=== PATIENT | male | born 1945 | race Caucasian/White ===

== ENCOUNTER → 2017-04-12 | Outpatient (CLI) | payer MEDICARE | END | disposition home or self-care (01) | LOC: PETSC 10:14 | DX: C82.80 Other types of follicular lymphoma, unspecified site (principal); E04.2 Nontoxic multinodular goiter; K76.89 Other specified diseases of liver; R59.1 Generalized enlarged lymph nodes | CPT/HCPCS: 78815; A9552 ==

== ENCOUNTER 2017-12-03 10:33 | Emergency (ER) | payer MEDICARE ==
[~2017-12-03] VITALS: Ht 182.9 cm; Wt 81.6 kg
[~2017-12-03 10:33] MED LIST: HYDR-971 PO; MULT1TAB52 PO
[2017-12-03 10:49] VITALS: BP 189/87
[2017-12-03] MEDS ORDERED: IV NORMAL SALINE 1000ML BAG 1,000 ML IV ONE (11:15)
--- NOTE | 2017-12-03 11:19 | PHYS DOC ---
Past Medical History Past Medical History: Cancer, Hypertension Additional Past Medical Histor: LOW GRADE B CELL LYMPHOMA Past Surgical History: Knee Replacement, Tonsillectomy Additional Past Surgical Histo: L foot sx, L knee replacement, R elbow sx, R ACL repair Alcohol Use: None Drug Use: None Adult General Chief Complaint Chief Complaint: ABDOMINAL PAIN HPI HPI Patient is a 72 year old female who presents with abdominal pain. Patient states he began to have significant diffuse abdominal pain after eating breakfast this morning. He had multiple episodes of dry heaves but did not actually have emesis. The pain is rated to be severe and constant. He does not have prior history of similar symptoms. His surgical history is positive only for a plastic surgery to remove excess skin after significant weight loss. No fever or chills. He was at baseline health prior to eating this morning. He does also complain of some dizziness, primarily when he rotates his head to the side. This symptom also started earlier today. No chest pain or shortness of breath. No recent fever. Review of Systems Review of Systems Constitutional: Denies fever Eyes: Denies change in visual acuity, redness, or eye pain HENT: Denies nasal congestion or sore throat Respiratory: Denies cough or shortness of breath Cardiovascular: No additional information not addressed in HPI GI: as documented above : Denies dysuria or hematuria Musculoskeletal: Denies back pain Integument: Denies rash or Neurologic: Denies headache Endocrine: Denies polyuria All other systems were reviewed and found to be within normal limits, except as documented in this note. Current Medications Current Medications Current Medications Medications (Trade) Dose Ordered Sig/Citlalli Start Time Stop Time Status Last Admin Dose Admin Diphenhydramine HCl (Benadryl) 12.5 mg 1X ONCE 12/03/17 13:30 12/03/17 13:31 DC 12/03/17 14:13 12.5 MG Info (CONTRAST GIVEN -- Rx MONITORING) 1 each PRN DAILY PRN 12/03/17 12:00 12/05/17 11:59 Iohexol (Omnipaque 300 Mg/ml) 75 ml 1X ONCE 12/03/17 12:00 12/03/17 12:01 DC 12/03/17 12:10 75 ML Ondansetron HCl (Zofran) 4 mg 1X ONCE 12/03/17 12:00 12/03/17 12:01 DC 12/03/17 12:00 4 MG Prochlorperazine Edisylate (Compazine) 10 mg 1X ONCE 12/03/17 13:30 12/03/17 13:31 DC 12/03/17 14:13 10 MG Sodium Chloride 1,000 ml @ 1,000 mls/hr 1X ONCE 12/03/17 11:15 12/03/17 12:14 DC 12/03/17 11:15 1,000 MLS/HR Allergies Allergies Allergies Coded Allergies Type Severity Reaction Last Updated Verified No Known Drug Allergies 01/26/15 No Physical Exam Physical Exam Constitutional: Well developed, well nourished, no acute distress, non-toxic appearance. [] HENT: Normocephalic, atraumatic, bilateral external ears normal, oropharynx moist, no oral exudates, nose normal. [] Eyes: PERRLA, EOMI, conjunctiva normal, no discharge. [] Neck: Normal range of motion, no tenderness, supple, no stridor. [] Cardiovascular:Heart rate regular rhythm, no murmur [] Lungs & Thorax: Bilateral breath sounds clear to auscultation [] Abdomen: Bowel sounds normal, soft, no tenderness, no masses, no pulsatile masses. [] Skin: Warm, dry, no erythema, no rash. [] Back: No tenderness, no CVA tenderness. [] Extremities: No tenderness, no cyanosis, no clubbing, ROM intact, no edema. [] Neurologic: Alert and oriented X 3, normal motor function, normal sensory function, no focal deficits noted. [] Psychologic: Affect normal, judgement normal, mood normal. [] Current Patient Data Vital Signs Vital Signs Date Time Temp Pulse Resp B/P (MAP) Pulse Ox O2 Delivery O2 Flow Rate FiO2 12/03/17 10:49 97.5 62 16 189/87 (121) 100 Room Air 97.5 Lab Values Laboratory Tests Test 12/03/17 10:40 White Blood Count 7.5 x10^3/uL (4.0-11.0) Red Blood Count 4.85 x10^6/uL (4.30-5.70) Hemoglobin 15.2 g/dL (13.0-17.5) Hematocrit 44.2 % (39.0-53.0) Mean Corpuscular Volume 91 fL (79-100) Mean Corpuscular Hemoglobin 31 pg (25-35) Mean Corpuscular Hemoglobin Concent 35 g/dL (31-37) Red Cell Distribution Width 13.6 % (11.5-14.5) Platelet Count 299 x10^3/uL (140-400) Neutrophils (%) (Auto) 69 % (31-73) Lymphocytes (%) (Auto) 20 % (24-48) L Monocytes (%) (Auto) 7 % (0-9) Eosinophils (%) (Auto) 3 % (0-3) Basophils (%) (Auto) 1 % (0-3) Neutrophils # (Auto) 5.2 x10^3uL (1.8-7.7) Lymphocytes # (Auto) 1.5 x10^3/uL (1.0-4.8) Monocytes # (Auto) 0.5 x10^3/uL (0.0-1.1) Eosinophils # (Auto) 0.2 x10^3/uL (0.0-0.7) Basophils # (Auto) 0.1 x10^3/uL (0.0-0.2) Sodium Level 139 mmol/L (136-145) Potassium Level 4.3 mmol/L (3.5-5.1) Chloride Level 103 mmol/L (98-107) Carbon Dioxide Level 29 mmol/L (21-32) Anion Gap 7 (6-14) Blood Urea Nitrogen 20 mg/dL (8-26) Creatinine 1.1 mg/dL (0.7-1.3) Estimated GFR (Cockcroft-Gault) 65.8 Glucose Level 104 mg/dL (70-99) H Calcium Level 9.3 mg/dL (8.5-10.1) Total Bilirubin 1.5 mg/dL (0.2-1.0) H Direct Bilirubin 0.2 mg/dL (0.0-0.2) Aspartate Amino Transferase (AST) 17 U/L (15-37) Alanine Aminotransferase (ALT) 20 U/L (16-63) Alkaline Phosphatase 97 U/L (46-116) Troponin I Quantitative < 0.017 ng/mL (0.000-0.055) Total Protein 6.9 g/dL (6.4-8.2) Albumin 3.7 g/dL (3.4-5.0) Lipase 131 U/L (73-393) Laboratory Tests 12/03/17 10:40 Laboratory Tests 12/03/17 10:40 EKG EKG No STEMI Interpretation Time: 10:45 Radiology/Procedures Radiology/Procedures FINDINGS: Lower thorax: Mild dependent atelectasis. Heart size mildly enlarged. Coronary artery calcifications. Liver: Low-density lesions are identified throughout the liver. Largest is in the right lobe and measures 6.2 cm and measures 11 Hounsfield units compatible with a cyst. Second largest lesion measures 6 Hounsfield units also compatible with a cyst. Spleen: Unremarkable Pancreas: Unremarkable Adrenals:No evidence of mass. Kidneys: Small hypodense lesion at the midpole of the left kidney laterally, measures 11 mm but greater than fluid density. This was not seen on the prior images of April 12, 2017. Gallbladder: Multiple gallstones are again identified. Lymph nodes: Multiple para-aortic lymph nodes are again identified and many of these are stable since previous exam. A large node just below the aortic bifurcation on the left now measures 2.4 cm in short axis, as compared with 1.9 cm on prior study. Multiple enlarged lymph nodes are again identified along the iliac chains. A large node medial to the left acetabulum now measures 2.2 cm short axis as compared with 1.8 cm on prior study. Right iliac nodes appears similar. Enlarged inguinal lymph nodes are again identified. These appear similar. Enlarged mesenteric lymph nodes appears similar in size. Vessels: * Aorta: Calcified, tortuous, no aneurysm. Dense calcifications at the right renal artery origin, and to a lesser extent other major origins. * Mesenteric: Patent * Portal venous: Patent GI tract: No evidence of acute colitis. No evidence of bowel obstruction. Appendix is not clearly visualized. Reproductive organs: Mild prostate gland enlargement Urinary bladder: Unremarkable. Peritoneum: No evidence of pneumoperitoneum. No free fluid. Abdominal wall:Unremarkable Spine: Degenerative spondylosis with loss of disk height and spurring. Bones: No destructive process identified. IMPRESSION: 1. Development of an 11 mm lesion in the left kidney, not compatible with a simple cyst. Considerations include a complex or hemorrhagic cyst, or solid mass. Further evaluation could be obtained with outpatient ultrasound. 2. Numerous hepatic hypodense lesions, most compatible with cysts. 3. Moderately enlarged retroperitoneal, mesenteric, iliac and inguinal lymph nodes. A lymph node adjacent to the left common iliac artery origin has increased in size, 2.4 cm as compared with 1.9 cm previously. A left iliac lymph node has also increased in size, now measuring 2.2 cm as compared with 1.8 cm. These are likely of neoplastic or metastatic etiology. 4. Cholelithiasis. CT Head: Findings: No acute extra-axial or parenchymal hemorrhage is identified. There is no significant intra-axial mass effect, midline shift, or extra-axial fluid collection. The coyle-white differentiation of the major vascular territories is preserved. The ventricles, sulci, and cisterns are within normal limits in size and configuration. Mastoid air cells are aerated. There is air-fluid level of the left maxillary sinus with adjacent mucosal thickening. There is posterior right maxillary sinus mucous retention cyst about 1.6 cm. No acute calvarial abnormality is identified. Impression: 1. No acute intracranial abnormality is identified by CT. 2. There is air-fluid level in the left maxillary sinus which could be due to acute sinusitis. There is a right maxillary sinus mucous retention cyst. Course & Med Decision Making Course & Med Decision Making Pertinent Labs and Imaging studies reviewed. (See chart for details) 11:00: Patient is seen and examined. His exam is positive for some diffuse abdominal tenderness. His neurologic exam is normal. His EKG is also normal. Will do standard abdominal pain workup. 13:20: Discussed this patient's CT findings. Patient now states he has a known history of B-cell lymphoma with known metastases in various places. He has never had any [employer] involvement. He continues to complain of some vertigo symptoms. On physical exam, he has horizontal nystagmus with lateral gaze bilaterally, symptoms worse on the right. The examination does precipitate his symptoms. His abdominal exam is soft and nontender. His CT abdomen pelvis is nonacute. His symptoms now seem more consistent with vertigo although he has never undergone neuro imaging. Plan is to give some Compazine. We'll do CT scan of the head. If this is negative for mass, patient will be discharged home with vertigo. I explained all of this to the patient and he plans to follow-up very closely 14:30: Patient currently feeling improved. He is ambulated without difficulty. Plan is for discharge home. There was no acute dystonic findings on his CT scan. He was noted to have air-fluid levels in the sinuses which could represent sinusitis. The patient is mildly tender in this area on exam. His symptoms seem most consistent with vertigo although in the setting of sinusitis on CT scan, plan is to treat him empirically. He is discharged home on Levaquin and meclizine. He is encouraged to follow-up with his primary care doctor later this week or early next week and also for sooner surveillance of his metastatic disease. Patient is agreeable to the plan of care. Dragon Disclaimer Dragon Disclaimer This electronic medical record was generated, in whole or in part, using a voice recognition dictation system. Departure Departure Referrals: JONATHAN PEÑALOZA MD (PCP) JOSE ALFREDO RAMIREZ DO Dec 03, 2017 11:19
[2017-12-03 11:20] LABS: BASO # 0.1 x10^3/uL (0.0-0.2); BASO % 1 % (0-3); EOS # 0.2 x10^3/uL (0.0-0.7); EOS % 3 % (0-3); HEMATOCRIT 44.2 % (39.0-53.0); HEMOGLOBIN 15.2 g/dL (13.0-17.5); LYMPH # 1.5 x10^3/uL (1.0-4.8); LYMPH % 20 % (24-48); MEAN CORPUSCULAR HEMOGLOBIN 31 pg (25-35); MEAN CORPUSCULAR HGB CONC 35 g/dL (31-37); MEAN CORPUSCULAR VOLUME 91 fL (79-100); MONO # 0.5 x10^3/uL (0.0-1.1); MONO % 7 % (0-9); NEUT # 5.2 x10^3uL (1.8-7.7); NEUT % 69 % (31-73); PLATELET COUNT 299 x10^3/uL (140-400); RED BLOOD COUNT 4.85 x10^6/uL (4.30-5.70); RED CELL DISTRIBUTION WIDTH 13.6 % (11.5-14.5); WHITE BLOOD COUNT 7.5 x10^3/uL (4.0-11.0)
[2017-12-03 11:30] LABS: CALCIUM 9.3 mg/dL (8.5-10.1); CREATININE 1.1 mg/dL (0.7-1.3); GFR 65.8; POTASSIUM 4.3 mmol/L (3.5-5.1)
[2017-12-03 11:35] LABS: ALBUMIN 3.7 g/dL (3.4-5.0); DIRECT BILIRUBIN 0.2 mg/dL (0.0-0.2); TOTAL BILIRUBIN 1.5 mg/dL (0.2-1.0); TOTAL PROTEIN 6.9 g/dL (6.4-8.2)
--- NOTE | 2017-12-03 11:44 | EKG ---
[facility] [address] [place] [address] Test Date: 2017-12-03 Test Time: 10:44:34 Pat Name: JG PETERSON Department: Room: Gender: M Contact Center Team Lead: DANA : 1945 Requested By: JOSE ALFREDO RAMIREZ Order Number: [id number] Reading MD: Reddy Bray MD Measurements Intervals [place] Rate: 61 P: 38 NC: 302 QRS: -4 QRSD: 88 T: 35 QT: 406 QTc: 410 Interpretive Statements SINUS RHYTHM PROLONGED NC INTERVAL Electronically Signed On 12-03-2017 11:44:27 CDT by Reddy Bray MD
[2017-12-03] MEDS ORDERED: CONTRAST GIVEN. MC PRN (12:00)
[2017-12-03] MEDS ORDERED: ONDANSETRON PF 4 MG/2 ML VIAL. IV ONE (12:00)
[2017-12-03] MEDS ORDERED: IOHEXOL 300 MG/ML 100ML VIAL. IV ONE (12:00)
--- NOTE | 2017-12-03 12:55 | RAD ---
CT ABD PELV W/ IV CONTRST ONLY Indication: DIFFUSE ABD PAIN X1DAY WITH NAUSEA AND VOMIITNG
OMNI 300 75ML, NO PRIORS Exposure: One or more of the following individualized dose reduction techniques were utilized for this examination: 1. Automated exposure control 2. Adjustment of the mA and/or kV according to patient size 3. Use of iterative reconstruction technique. Comparison: April 12, 2017 Contrast: Intravenous contrast was given. No oral contrast per request. FINDINGS: Lower thorax: Mild dependent atelectasis. Heart size mildly enlarged. Coronary artery calcifications. Liver: Low-density lesions are identified throughout the liver. Largest is in the right lobe and measures 6.2 cm and measures 11 Hounsfield units compatible with a cyst. Second largest lesion measures 6 Hounsfield units also compatible with a cyst. Spleen: Unremarkable Pancreas: Unremarkable Adrenals:No evidence of mass. Kidneys: Small hypodense lesion at the midpole of the left kidney laterally, measures 11 mm but greater than fluid density. This was not seen on the prior images of April 12, 2017. Gallbladder: Multiple gallstones are again identified. Lymph nodes: Multiple para-aortic lymph nodes are again identified and many of these are stable since previous exam. A large node just below the aortic bifurcation on the left now measures 2.4 cm in short axis, as compared with 1.9 cm on prior study. Multiple enlarged lymph nodes are again identified along the iliac chains. A large node medial to the left acetabulum now measures 2.2 cm short axis as compared with 1.8 cm on prior study. Right iliac nodes appears similar. Enlarged inguinal lymph nodes are again identified. These appear similar. Enlarged mesenteric lymph nodes appears similar in size. Vessels: * Aorta: Calcified, tortuous, no aneurysm. Dense calcifications at the right renal artery origin, and to a lesser extent other major origins. * Mesenteric: Patent * Portal venous: Patent GI tract: No evidence of acute colitis. No evidence of bowel obstruction. Appendix is not clearly visualized. Reproductive organs: Mild prostate gland enlargement Urinary bladder: Unremarkable. Peritoneum: No evidence of pneumoperitoneum. No free fluid. Abdominal wall:Unremarkable Spine: Degenerative spondylosis with loss of disk height and spurring. Bones: No destructive process identified. IMPRESSION: 1. Development of an 11 mm lesion in the left kidney, not compatible with a simple cyst. Considerations include a complex or hemorrhagic cyst, or solid mass. Further evaluation could be obtained with outpatient ultrasound. 2. Numerous hepatic hypodense lesions, most compatible with cysts. 3. Moderately enlarged retroperitoneal, mesenteric, iliac and inguinal lymph nodes. A lymph node adjacent to the left common iliac artery origin has increased in size, 2.4 cm as compared with 1.9 cm previously. A left iliac lymph node has also increased in size, now measuring 2.2 cm as compared with 1.8 cm. These are likely of neoplastic or metastatic etiology. 4. Cholelithiasis. Electronically signed by: Collins Davis MD (12/03/2017 12:52 PM) [id number]
[2017-12-03] MEDS ORDERED: diphenhydrAMINE 50 MG/ML VIAL IVP ONE (13:30)
[2017-12-03] MEDS ORDERED: PROCHLORPERAZINE 10 MG/2 ML VIAL. IV ONE (13:30)
--- NOTE | 2017-12-03 14:20 | RAD ---
CT HEAD WO CONTRAST History: Vertigo, B-cell lymphoma, emesis Comparison: None. Technique: Noncontrast CT imaging was performed of the head. Exposure: One or more of the following individualized dose reduction techniques were utilized for this examination: 1. Automated exposure control 2. Adjustment of the mA and/or kV according to patient size 3. Use of iterative reconstruction technique. Findings: No acute extra-axial or parenchymal hemorrhage is identified. There is no significant intra-axial mass effect, midline shift, or extra-axial fluid collection. The coyle-white differentiation of the major vascular territories is preserved. The ventricles, sulci, and cisterns are within normal limits in size and configuration. Mastoid air cells are aerated. There is air-fluid level of the left maxillary sinus with adjacent mucosal thickening. There is posterior right maxillary sinus mucous retention cyst about 1.6 cm. No acute calvarial abnormality is identified. Impression: 1. No acute intracranial abnormality is identified by CT. 2. There is air-fluid level in the left maxillary sinus which could be due to acute sinusitis. There is a right maxillary sinus mucous retention cyst. Electronically signed by: Richard Altman MD (12/03/2017 2:16 PM) [facility]
[2017-12-03] MEDS ORDERED: LEVO500T59 PO (14:28)
[2017-12-03] MEDS ORDERED: MECL25TA3 PO (14:28)
== END 2017-12-03 15:27 | disposition home or self-care (01) ==
LOC: ER 10:33
DX: R10.84 Generalized abdominal pain (principal); R42 Dizziness and giddiness; I10 Essential (primary) hypertension
CPT/HCPCS: 36415; 70450; 74177; 80048; 80076; 83690; 84484; 85025; 93005; 96361; 96374; 96375; 99285; J0780; J1200; J2405; J7030; Q9967

== ENCOUNTER 2018-01-01 15:44 | Inpatient (IN) | payer MEDICARE ==
[~2018-01-01] VITALS: Ht 193 cm; Wt 106.3 kg
[~2018-01-01 15:44] MED LIST changes: +LEVO500T59 PO; +MECL25TA3 PO
--- NOTE | 2018-01-01 16:44 | PHYS DOC ---
Past Medical History Past Medical History: Cancer, Hypertension Additional Past Medical Histor: LOW GRADE B CELL LYMPHOMA Past Surgical History: Knee Replacement, Tonsillectomy Additional Past Surgical Histo: L foot sx, L knee replacement, R elbow sx, R ACL repair Alcohol Use: None Drug Use: None Adult General Chief Complaint Chief Complaint: ABSCESS HPI HPI Patient is a 72 year old Male who presents with left foot redness and swelling 1 week. Patient states he went to Dr. Carla luu foot doctor and states the doctor today made a small incision on the bottom of his foot where there is a wound that the patient did not know about and purulent fluid came out. The doctor sent him here for IV antibiotics and to be evaluated. Review of Systems Review of Systems Constitutional: Denies fever or chills [] Eyes: Denies change in visual acuity, redness, or eye pain [] HENT: Denies nasal congestion or sore throat [] Respiratory: Denies cough or shortness of breath [] Cardiovascular: No additional information not addressed in HPI [] GI: Denies abdominal pain, nausea, vomiting, bloody stools or diarrhea [] : Denies dysuria or hematuria [] Musculoskeletal: Denies back pain or joint pain [] Integument: Denies rash or skin lesions [] Neurologic: Denies headache, focal weakness or sensory changes [] Endocrine: Denies polyuria or polydipsia [] All other systems were reviewed and found to be within normal limits, except as documented in this note. Current Medications Current Medications Current Medications Medications (Trade) Dose Ordered Sig/Citlalli Start Time Stop Time Status Last Admin Dose Admin Ondansetron HCl (Zofran) 4 mg PRN Q8HRS PRN 01/01/18 17:15 01/02/18 17:14 UNV Vancomycin HCl (Vanco Per Pharmacy) 1 each PRN DAILY PRN 01/01/18 16:30 UNV Vancomycin HCl 2 gm/Sodium Chloride 500 ml @ 250 mls/hr ONCE ONCE 01/01/18 17:00 01/01/18 18:59 Allergies Allergies Allergies Coded Allergies Type Severity Reaction Last Updated Verified No Known Drug Allergies 01/26/15 No Physical Exam Physical Exam Constitutional: Well developed, well nourished, no acute distress, non-toxic appearance. [] HENT: Normocephalic, atraumatic, bilateral external ears normal, oropharynx moist, no oral exudates, nose normal. [] Eyes: PERRLA, EOMI, conjunctiva normal, no discharge. [] Neck: Normal range of motion, no tenderness, supple, no stridor. [] Cardiovascular:Heart rate regular rhythm, no murmur [] Lungs & Thorax: Bilateral breath sounds clear to auscultation [] Abdomen: Bowel sounds normal, soft, no tenderness, no masses, no pulsatile masses. [] Skin: Warm, dry, no erythema, no rash. [] Back: No tenderness, no CVA tenderness. [] Extremities: No tenderness, no cyanosis, no clubbing, ROM intact, no edema. [] Neurologic: Alert and oriented X 3, normal motor function, normal sensory function, no focal deficits noted. [] Psychologic: Affect normal, judgement normal, mood normal. [] Current Patient Data Vital Signs Vital Signs Date Time Temp Pulse Resp B/P (MAP) Pulse Ox O2 Delivery O2 Flow Rate FiO2 01/01/18 16:06 99.9 77 20 143/81 (101) 96 Room Air 99.9 Lab Values Laboratory Tests Test 01/01/18 16:30 White Blood Count 9.9 x10^3/uL (4.0-11.0) Red Blood Count 4.40 x10^6/uL (4.30-5.70) Hemoglobin 13.8 g/dL (13.0-17.5) Hematocrit 40.3 % (39.0-53.0) Mean Corpuscular Volume 92 fL (79-100) Mean Corpuscular Hemoglobin 31 pg (25-35) Mean Corpuscular Hemoglobin Concent 34 g/dL (31-37) Red Cell Distribution Width 13.4 % (11.5-14.5) Platelet Count 279 x10^3/uL (140-400) Neutrophils (%) (Auto) 74 % (31-73) H Lymphocytes (%) (Auto) 14 % (24-48) L Monocytes (%) (Auto) 11 % (0-9) H Eosinophils (%) (Auto) 1 % (0-3) Basophils (%) (Auto) 0 % (0-3) Neutrophils # (Auto) 7.3 x10^3uL (1.8-7.7) Lymphocytes # (Auto) 1.4 x10^3/uL (1.0-4.8) Monocytes # (Auto) 1.1 x10^3/uL (0.0-1.1) Eosinophils # (Auto) 0.1 x10^3/uL (0.0-0.7) Basophils # (Auto) 0.0 x10^3/uL (0.0-0.2) Sodium Level 141 mmol/L (136-145) Potassium Level 3.6 mmol/L (3.5-5.1) Chloride Level 103 mmol/L (98-107) Carbon Dioxide Level 29 mmol/L (21-32) Anion Gap 9 (6-14) Blood Urea Nitrogen 23 mg/dL (8-26) Creatinine 1.4 mg/dL (0.7-1.3) H Estimated GFR (Cockcroft-Gault) 49.8 Glucose Level 100 mg/dL (70-99) H Calcium Level 8.5 mg/dL (8.5-10.1) Laboratory Tests 01/01/18 16:30 Laboratory Tests 01/01/18 16:30 EKG EKG [] Radiology/Procedures Radiology/Procedures Left foot wound Impressions: [facility] [address] [place], [place] [id number] IMAGING REPORT Signed PATIENT: EULOGIO PETERSON ACCOUNT: [id number] : 1945 LOCATION: ER AGE: 72 SEX: M EXAM STATUS: REG ER ORD. PHYSICIAN: PIERO BARKSDALE APRN REASON: WOUND PROCEDURE: FOOT LEFT 3V Three-view left foot study Clinical indications: Toe infection with wound. FINDINGS: Old appearing surgical resection or old erosion of the fourth metatarsal phalangeal joint is seen. There is erosion of the distal tuft of the third distal phalanx. Soft tissue wound is seen here. Therefore, osteomyelitis is a possibility. There is dislocation of the third metatarsal phalangeal joint. No acute-appearing fracture is evident. Plantar and posterior spurs the calcaneus are seen. 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 Dislocation of the third metatarsal phalangeal joint. Electronically signed by: Rich Valenzuela MD (01/01/2018 4:56 PM) [facility] DICTATED and SIGNED BY: RICH VALENZUELA MD DATE: 01/01/181652 Course & Med Decision Making Course & Med Decision Making Patient is a 72 year old Male who presents with left foot redness and swelling 1 week. Patient states he went to Dr. Carla luu foot doctor and states the doctor today made a small incision on the bottom of his foot where there is a wound that the patient did not know about and purulent fluid came out. The doctor sent him here for IV antibiotics and to be evaluated. Patient afebrile temp is 99.1. His heart rate is 82. Patient is neurologically intact. Patient denies any peripheral neuropathies but states that he had no idea that there was a wound on the bottom of his foot. Patient states he walks about 5 miles a day and did not feel any pain. Patient states he has had a surgery for another of this type of wound on the top of this foot by his fifth foot digit that had to be opened up and drained. The top of patient's left foot is red, hot and has 3+ edema. Patient has less than 3 second cap refill. There is a dollar fernandez size round yellow hard area that is on the bottom of left foot in the plantar area that is now draining a small amount of serosanguineous fluid. There is a faint pedal pulse felt in the left foot due to swelling. Blood cultures are done. Patient has a history of B-cell lymphoma that is low-grade and located in his groin lymph nodes fell last 3 years. Patient's been seeing a Dr. Villanueva for his cancer follow-up. Patient is not currently being treated for cancer. Have consulted Dr. Pollard for admission and infectious disease. Left foot xray shows Osteomyelitis of the distal tuft of the third distal phalanx with associated soft tissue wound. Dislocation of the third metatarsal phalangeal joint. Patient will be started on vancomycin and zosyn. [] Dragon Disclaimer Dragon Disclaimer This electronic medical record was generated, in whole or in part, using a voice recognition dictation system. Departure Departure Impression: Primary Impression: Wound of foot Additional Impression: Cellulitis Disposition: ADMITTED INPATIENT Admitting Physician: Eulogio Woodall Condition: STABLE Referrals: JONATHAN PEÑALOZA MD (PCP) Problem Qualifiers Additional Impression: Cellulitis Site of cellulitis: other site Qualified Codes: L03.818 - Cellulitis of other sites PIERO BARKSDALE DIRECTOR OF DISTANCE LEARNING Jan 01, 2018 16:44
[2018-01-01 16:52] LABS: BASO % 0 % (0-3); EOS # 0.1 x10^3/uL (0.0-0.7); EOS % 1 % (0-3); HEMATOCRIT 40.3 % (39.0-53.0); HEMOGLOBIN 13.8 g/dL (13.0-17.5); LYMPH # 1.4 x10^3/uL (1.0-4.8); LYMPH % 14 % (24-48); MEAN CORPUSCULAR HEMOGLOBIN 31 pg (25-35); MEAN CORPUSCULAR HGB CONC 34 g/dL (31-37); MEAN CORPUSCULAR VOLUME 92 fL (79-100); MONO # 1.1 x10^3/uL (0.0-1.1); MONO % 11 % (0-9); NEUT # 7.3 x10^3uL (1.8-7.7); NEUT % 74 % (31-73); PLATELET COUNT 279 x10^3/uL (140-400); RED CELL DISTRIBUTION WIDTH 13.4 % (11.5-14.5); WHITE BLOOD COUNT 9.9 x10^3/uL (4.0-11.0)
--- NOTE | 2018-01-01 16:59 | RAD ---
Three-view left foot study Clinical indications: Toe infection with wound. FINDINGS: Old appearing surgical resection or old erosion of the fourth metatarsal phalangeal joint is seen. There is erosion of the distal tuft of the third distal phalanx. Soft tissue wound is seen here. Therefore, osteomyelitis is a possibility. There is dislocation of the third metatarsal phalangeal joint. No acute-appearing fracture is evident. Plantar and posterior spurs the calcaneus are seen. 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 Dislocation of the third metatarsal phalangeal joint. Electronically signed by: Jose L Valenzuela MD (01/01/2018 4:56 PM) [facility]
[2018-01-01 17:00] LABS: CALCIUM 8.5 mg/dL (8.5-10.1); CREATININE 1.4 mg/dL (0.7-1.3); GFR 49.8; POTASSIUM 3.6 mmol/L (3.5-5.1)
[2018-01-01] MEDS ORDERED: VANCOMYCIN 2 GM in IV NORMAL SALINE 500ML BAG 500 ML IV ONE (17:00)
[2018-01-01] MEDS ORDERED: ONDANSETRON PF 4 MG/2 ML VIAL. IV PRN (17:15)
[2018-01-01] MEDS ORDERED: PIPERACILLIN/TAZOBACTAM 3.375 GM in IV NORMAL SALINE 50ML 50 ML IV ONE (17:30)
[2018-01-01] MEDS ORDERED: PIP/TAZO PER PHARMACY MC PRN (17:30)
[2018-01-01] MEDS: VANCOMYCIN PER PHARMACY MC PRN (18:40)
[2018-01-01 19:15] VITALS: BP 133/67
[2018-01-01] MEDS: LACTOBACILLUS RHAMNOSUS GG 1 CAPSULE. PO SCH (22:04)
--- NOTE | 2018-01-01 22:45 | PDOC1 ---
History and Physical Date of Admission Date of Admission DATE: 01/01/18 TIME: 22:45 Identification/Chief Complaint Chief Complaint CC SEEN IN ER 72 year old Male who presents with left foot redness and swelling 1 week. states he went to Dr. Aguirre a [employer] made a small incision on the bottom of his left foot purulent fluid noted, sent him here for IV antibiotics and to be evaluated. Past Medical History Past Medical History Past Medical History Past Medical History Past Medical History: Cancer, Hypertension Additional Past Medical Histor: LOW GRADE B CELL LYMPHOMA Past Surgical History: Knee Replacement, Tonsillectomy Additional Past Surgical Histo: L foot sx, L knee replacement, R elbow sx, R ACL repair Alcohol Use: None Drug Use: None family hx htn Cardiovascular: Hyperlipidemia Musculoskeletal: Osteoarthritis Endocrine: Diabetes Family History Family History: High Cholestrol Family History: Parent Social History Smoke: No ALCOHOL: none Drugs: None Current Problem List Problem List Problems Medical Problems: (1) Cellulitis Status: Acute (2) Wound of foot Status: Acute Current Medications Current Medications Current Medications Vancomycin HCl (Vanco Per Pharmacy) 1 each PRN DAILY PRN MC SEE COMMENTS Last administered on 01/01/18at 18:40; Start 01/01/18 at 16:30 Vancomycin HCl 2 gm/Sodium Chloride 500 ml @ 250 mls/hr ONCE ONCE IV Last administered on 01/01/18at 18:17; Start 01/01/18 at 17:00; Stop 01/01/18 at 18:59 ; Status DC Ondansetron HCl (Zofran) 4 mg PRN Q8HRS PRN IV NAUSEA/VOMITING; Start 01/01/18 at 17:15; Stop 01/02/18 at 17:14 Piperacillin Sod/ Tazobactam Sod (Zosyn Per Pharmacy) 1 each PRN DAILY PRN MC SEE COMMENTS; Start 01/01/18 at 17:30 Piperacillin Sod/ Tazobactam Sod 3.375 gm/Sodium Chloride 50 ml @ 100 mls/hr ONCE ONCE IV Last administered on 01/01/18at 17:36; Start 01/01/18 at 17:30; Stop 01/01/18 at 17:59; Status DC Piperacillin Sod/ Tazobactam Sod 3.375 gm/Sodium Chloride 50 ml @ 100 mls/hr Q6HRS IV ; Start 01/02/18 at 00:00 Lactobacillus Rhamnosus (Culturelle) 1 cap BID PO Last administered on at 22:04; Start 01/01/18 at 21:00 Vancomycin HCl 1.5 gm/Sodium Chloride 500 ml @ 250 mls/hr Q12H IV ; Start 01/02 at 06:00 Vancomycin HCl (Vancomycin Trough Level) 1 each 1X ONCE MC ; Start 01/03/18 at 05:30; Stop 01/03/18 at 05:31 Active Scripts Active Meclizine Hcl 25 Mg Tablet 25 Mg PO PRN TID PRN dizziness Levaquin (Levofloxacin) 500 Mg Tablet 500 Mg PO DAILY Reported No Known Medications Prior To Admisstion (Info) Each 1 Each MC Allergies Allergies: Coded Allergies: No Known Drug Allergies (Unverified , 01/26/15) ROS Review of System Review of Systems Review of Systems Constitutional: Denies fever or chills [] Eyes: Denies change in visual acuity, redness, or eye pain [] HENT: Denies nasal congestion or sore throat [] Respiratory: Denies cough or shortness of breath [] Cardiovascular: No additional information not addressed in HPI [] GI: Denies abdominal pain, nausea, vomiting, bloody stools or diarrhea [] : Denies dysuria or hematuria [] Musculoskeletal: Denies back pain or joint pain [] Integument: Denies rash or skin lesions [] Neurologic: Denies headache, focal weakness or sensory changes [] Endocrine: Denies polyuria or polydipsia [] 14 pt systems were reviewed and found to be within normal limits, except as documented General: YES: Chills Hematological and Lymphatic: No: Bleeding Problems, Blood Clots, Blood Transfusions, Brusing, Night Sweats, Pallor, Swollen Lymph Nodes, Other Breast: No New/Changing Breast Lumps, No Nipple changes, No Nipple discharge, No Other Respiratory: No: Cough, Hemoptysis, Orthopnea, Pleuritic Pain, Shortness of breath, SOB with excertion, Sputum Changes, Stridor, Tachypnea, Wheezing, Other Musculoskeletal: Yes Gait Disturbance Physical Exam Physical Exam Physical Exam Physical Exam Constitutional: Well developed, well nourished, no acute distress, non-toxic appearance. [] HENT: Normocephalic, atraumatic, bilateral external ears normal, oropharynx moist, no oral exudates, nose normal. [] Eyes: PERRLA, EOMI, conjunctiva normal, no discharge. [] Neck: Normal range of motion, no tenderness, supple, no stridor. [] Cardiovascular:Heart rate regular rhythm, no murmur [] Lungs & Thorax: Bilateral breath sounds clear to auscultation [] Abdomen: Bowel sounds normal, soft, no tenderness, no masses, no pulsatile masses. [] Skin: lg blister l heel with purulent d/c. [] Back: No tenderness, no CVA tenderness. [] Extremities: no cyanosis, no clubbing, ROM intact, [] Neurologic: Alert and oriented X 3, normal motor function, normal sensory function, no focal deficits noted. [] Psychologic: Affect normal, judgement normal, mood normal. [] General: Alert, Oriented X3, Cooperative HEENT: Atraumatic, PERRLA Lungs: Clear to auscultation Heart: S1S2, RRR Rectal Exam: not examined Extremities: No cyanosis Neuro: Cranial nerves 3-12 NL Psych/Mental Status: Mental status NL, Mood NL Vitals Vitals Vital Signs Date Time Temp Pulse Resp B/P (MAP) Pulse Ox O2 Delivery O2 Flow Rate FiO2 01/01/18 19:15 98.2 68 18 133/67 (89) 93 Room Air 98.2 Labs Labs Laboratory Tests Test 01/01/18 16:30 White Blood Count 9.9 x10^3/uL (4.0-11.0) Red Blood Count 4.40 x10^6/uL (4.30-5.70) Hemoglobin 13.8 g/dL (13.0-17.5) Hematocrit 40.3 % (39.0-53.0) Mean Corpuscular Volume 92 fL (79-100) Mean Corpuscular Hemoglobin 31 pg (25-35) Mean Corpuscular Hemoglobin Concent 34 g/dL (31-37) Red Cell Distribution Width 13.4 % (11.5-14.5) Platelet Count 279 x10^3/uL (140-400) Neutrophils (%) (Auto) 74 % (31-73) Lymphocytes (%) (Auto) 14 % (24-48) Monocytes (%) (Auto) 11 % (0-9) Eosinophils (%) (Auto) 1 % (0-3) Basophils (%) (Auto) 0 % (0-3) Neutrophils # (Auto) 7.3 x10^3uL (1.8-7.7) Lymphocytes # (Auto) 1.4 x10^3/uL (1.0-4.8) Monocytes # (Auto) 1.1 x10^3/uL (0.0-1.1) Eosinophils # (Auto) 0.1 x10^3/uL (0.0-0.7) Basophils # (Auto) 0.0 x10^3/uL (0.0-0.2) Erythrocyte Sedimentation Rate 33 (0-15) Sodium Level 141 mmol/L (136-145) Potassium Level 3.6 mmol/L (3.5-5.1) Chloride Level 103 mmol/L (98-107) Carbon Dioxide Level 29 mmol/L (21-32) Anion Gap 9 (6-14) Blood Urea Nitrogen 23 mg/dL (8-26) Creatinine 1.4 mg/dL (0.7-1.3) Estimated GFR (Cockcroft-Gault) 49.8 Glucose Level 100 mg/dL (70-99) Lactic Acid Level 1.0 mmol/L (0.4-2.0) Calcium Level 8.5 mg/dL (8.5-10.1) Laboratory Tests Test 01/01/18 16:30 White Blood Count 9.9 x10^3/uL (4.0-11.0) Red Blood Count 4.40 x10^6/uL (4.30-5.70) Hemoglobin 13.8 g/dL (13.0-17.5) Hematocrit 40.3 % (39.0-53.0) Mean Corpuscular Volume 92 fL (79-100) Mean Corpuscular Hemoglobin 31 pg (25-35) Mean Corpuscular Hemoglobin Concent 34 g/dL (31-37) Red Cell Distribution Width 13.4 % (11.5-14.5) Platelet Count 279 x10^3/uL (140-400) Neutrophils (%) (Auto) 74 % (31-73) Lymphocytes (%) (Auto) 14 % (24-48) Monocytes (%) (Auto) 11 % (0-9) Eosinophils (%) (Auto) 1 % (0-3) Basophils (%) (Auto) 0 % (0-3) Neutrophils # (Auto) 7.3 x10^3uL (1.8-7.7) Lymphocytes # (Auto) 1.4 x10^3/uL (1.0-4.8) Monocytes # (Auto) 1.1 x10^3/uL (0.0-1.1) Eosinophils # (Auto) 0.1 x10^3/uL (0.0-0.7) Basophils # (Auto) 0.0 x10^3/uL (0.0-0.2) Erythrocyte Sedimentation Rate 33 (0-15) Sodium Level 141 mmol/L (136-145) Potassium Level 3.6 mmol/L (3.5-5.1) Chloride Level 103 mmol/L (98-107) Carbon Dioxide Level 29 mmol/L (21-32) Anion Gap 9 (6-14) Blood Urea Nitrogen 23 mg/dL (8-26) Creatinine 1.4 mg/dL (0.7-1.3) Estimated GFR (Cockcroft-Gault) 49.8 Glucose Level 100 mg/dL (70-99) Lactic Acid Level 1.0 mmol/L (0.4-2.0) Calcium Level 8.5 mg/dL (8.5-10.1) Images Images PROCEDURE: FOOT LEFT 3V Three-view left foot study Clinical indications: Toe infection with wound. FINDINGS: Old appearing surgical resection or old erosion of the fourth metatarsal phalangeal joint is seen. There is erosion of the distal tuft of the third distal phalanx. Soft tissue wound is seen here. Therefore, osteomyelitis is a possibility. There is dislocation of the third metatarsal phalangeal joint. No acute-appearing fracture is evident. Plantar and posterior spurs the calcaneus are seen. 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 Dislocation of the third metatarsal phalangeal joint. VTE Prophylaxis Ordered VTE Prophylaxis Devices: No VTE Pharmacological Prophylaxi: Yes Assessment/Plan Assessment/Plan IMPRESSION: Osteomyelitis of the distal tuft of the third distal phalanx with associated soft tissue wound. diabetes Dislocation of the third metatarsal phalangeal joint. plan admit wound consult, nurse wound culture ID consult emperic iv antibiotics, zosyn, vancomycin sq lovenox dvt prophylaxis JG AMADO MD Jan 01, 2018 22:45
[2018-01-01] MEDS ORDERED: MECLIZINE HCL 12.5 MG TABLET. PO PRN (23:00)
[2018-01-01 23:08] VITALS: BP 110/64
[2018-01-01] MEDS: ENOXAPARIN 40 MG/0.4 ML SYRINGE. SQ SCH (23:35)
[2018-01-01] MEDS: PIPERACILLIN/TAZOBACTAM 3.375 GM in IV NORMAL SALINE 50ML 50 ML IV SCH (23:35)
[2018-01-02] VITALS (13 sets, daily range): BP systolic 63–213; BP diastolic 56–95
[2018-01-02] MEDS: PIPERACILLIN/TAZOBACTAM 3.375 GM in IV NORMAL SALINE 50ML 50 ML IV SCH ×4 (05:34→23:24)
[2018-01-02] MEDS: VANCOMYCIN 1.5 GM in IV NORMAL SALINE 500ML BAG 500 ML IV SCH ×2 (06:16→19:35)
[2018-01-02 07:00] LABS: BASO # 0.1 x10^3/uL (0.0-0.2); BASO % 1 % (0-3); EOS # 0.3 x10^3/uL (0.0-0.7); EOS % 4 % (0-3); HEMATOCRIT 37.2 % (39.0-53.0); HEMOGLOBIN 13.1 g/dL (13.0-17.5); LYMPH # 1.7 x10^3/uL (1.0-4.8); LYMPH % 24 % (24-48); MEAN CORPUSCULAR HEMOGLOBIN 32 pg (25-35); MEAN CORPUSCULAR HGB CONC 35 g/dL (31-37); MEAN CORPUSCULAR VOLUME 91 fL (79-100); MONO # 0.8 x10^3/uL (0.0-1.1); MONO % 11 % (0-9); NEUT # 4.6 x10^3uL (1.8-7.7); NEUT % 61 % (31-73); PLATELET COUNT 250 x10^3/uL (140-400); RED BLOOD COUNT 4.09 x10^6/uL (4.30-5.70); RED CELL DISTRIBUTION WIDTH 13.5 % (11.5-14.5); WHITE BLOOD COUNT 7.4 x10^3/uL (4.0-11.0)
[2018-01-02 07:22] LABS: ALBUMIN 2.6 g/dL (3.4-5.0); ALBUMIN/GLOBULIN RATIO 0.7 (1.0-1.7); CALCIUM 8.6 mg/dL (8.5-10.1); CREATININE 1.2 mg/dL (0.7-1.3); GFR 59.5; POTASSIUM 3.6 mmol/L (3.5-5.1); TOTAL BILIRUBIN 1.9 mg/dL (0.2-1.0); TOTAL PROTEIN 6.3 g/dL (6.4-8.2)
[2018-01-02] MEDS: LACTOBACILLUS RHAMNOSUS GG 1 CAPSULE. PO SCH ×2 (09:37→19:35)
[2018-01-02] MEDS ORDERED: MORPHINE SULFATE 2 MG/ML VIAL. IV PRN (11:45)
[2018-01-02] MEDS ORDERED: ACETAMINOPHEN 325 MG TABLET. PO PRN (11:45)
[2018-01-02] MEDS ORDERED: traMADol 50 MG TABLET PO PRN (11:45)
[2018-01-02] MEDS ORDERED: ONDANSETRON PF 4 MG/2 ML VIAL. IV PRN (11:45)
[2018-01-02] MEDS ORDERED: DOCUSATE SODIUM 100 MG CAPSULE. PO PRN (11:45)
--- NOTE | 2018-01-02 12:11 | PDOC ---
Provider Note Provider Note pt seen dictated [id number] LAMAR BERRIOS MD Jan 02, 2018 12:11
[2018-01-02 13:25] LABS: HEMOGLOBIN A1C 5.2 % (4.8-5.6)
--- NOTE | 2018-01-02 13:30 | CONS ---
DATE OF CONSULTATION: REFERRING PHYSICIAN: Dr. Pollard. REASON FOR CONSULTATION: Left foot infection, possible osteo. HISTORY OF PRESENT ILLNESS: A 72-year-old male admitted through ER on 01/01/2018 after noticing left foot redness and swelling for 1 week. 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 He was sent here for IV antibiotics and further evaluation. The patient had x-ray done, which shows osteomyelitis of the distal tuft of the third distal phalanx with associated soft tissue wound, dislocation of the third metatarsophalangeal joint. The patient has history of previous osteomyelitis of the third toe for which he underwent surgery with healing of the wound dorsally a couple of years ago. The patient has peripheral neuropathy, so usually does not have any sensation. He had low-grade fever, but none here. His white count was normal. His creatinine was 1.4, later normal today. His lactate was 1.0. Wound culture is done, which is pending at this time. The patient denies any fevers, chills, nausea, vomiting, diarrhea, abdominal pain, symptoms, rash, other joint pain. PAST MEDICAL HISTORY: Low grade B cell lymphoma, knee replacement, tonsillectomy, hypertension. PAST SURGICAL HISTORY: Left foot surgery as above, left knee replacement, left elbow surgery, right ACL repair, hyperlipidemia, DJD. FAMILY HISTORY: Hypertension, hyperlipidemia, osteoarthritis, diabetes. SOCIAL HISTORY: Denies smoking, ETOH or illicit drug use. Lives alone. No pets. CURRENT MEDICATION: IV vancomycin and Zosyn. Other medications reviewed in medication list. REVIEW OF SYSTEMS: Negative except for above in HPI. PHYSICAL EXAMINATION: VITAL SIGNS: Temperature 97.6, T-max 99.9, pulse 65, respiration rate 16, blood pressure 213/73, oxygen saturation 94% on room air. GENERAL: Alert, oriented x 3 male, eating lunch, in no acute distress, comfortable, cooperative. HEENT: Normocephalic, atraumatic, anicteric. No thrush. NECK: Supple. LUNGS: Clear. HEART: S1, S2. ABDOMEN: Soft. Bowel sounds present. EXTREMITIES: Left foot swelling present. Redness present. Large lesion present over the plantar aspect with surrounding erythema. Left foot is warm to touch. Scar over dorsum of left foot well healed. I could not feel the pulses. DERMATOLOGIC: No generalized rash except for left foot changes as above. NEUROLOGIC: Grossly nonfocal. PSYCHIATRIC: Appropriate mood and affect. LABORATORY DATA: WBC 7.4, hemoglobin 13.1, hematocrit 37.2, platelets 250. Sodium 140, potassium 3.6, chloride 106, bicarbonate 26, BUN 18, creatinine 1.0, glucose 88. Lactate 1.0, calcium 8.6, total bilirubin 1.9. LFTs within normal limits. Albumin 2.6. MICROBIOLOGY: Blood culture, wound culture pending at this time. Hemoglobin A1c pending at this time. IMAGING: Left foot x-ray shows osteomyelitis of the distal tuft of the third distal phalanx with associated soft tissue wound dislocation of the third metatarsophalangeal joint. IMPRESSION: 1. 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 2. Dislocation of the third metatarsophalangeal joint. 3. Peripheral neuropathy. 4. Diabetes. 5. History of cancer. RECOMMENDATIONS: 1. Continue empiric IV vancomycin and Zosyn. 2. Monitor renal functions closely. 3. Follow up culture and susceptibility results and lab in a.m. 4. Continue supportive care. 5. Consult Vascular Surgery for further evaluation and treatment. Thank you, Dr. Pollard for consulting Infectious Disease to participate in this patient's care. If you have any questions, do not hesitate to contact me. LAMAR BERRIOS MD DR: KALYAN/smiley JOB#: [id number] / [id number] FELIPE
--- NOTE | 2018-01-02 15:06 | PDOC ---
PROGRESS NOTES Chief Complaint Chief Complaint Osteomyelitis left foot with associated soft tissue wound. no DM h/o left foot bone infection post i and d HTN plan: id consult, on zosyn, vanco get ortho consult vascular consult as per ID labetolol prn for now, if cont high BP, will add po meds pain control wound care talked to ortho, pt ate lunch, should keep npo, hope sx today History of Present Illness History of Present Illness left foot open wound 1 week ROS: no fever, chills, sob or chest pain Vitals Vitals Vital Signs Date Time Temp Pulse Resp B/P (MAP) Pulse Ox O2 Delivery O2 Flow Rate FiO2 01/02/18 11:00 97.6 65 16 213/73 (119) 94 Room Air 97.6 Physical Exam General: Alert, Oriented X3, Cooperative Heart: Regular rate, Normal S1, Normal S2 Lungs: Clear Abdomen: Normal bowel sounds, Soft Extremities: No cyanosis Skin: Other (left foot sole 1 open wound, mild tenderness, left foot red mild swelling) Labs LABS Laboratory Tests Test 01/01/18 16:30 01/02/18 06:30 White Blood Count 9.9 x10^3/uL (4.0-11.0) 7.4 x10^3/uL (4.0-11.0) Red Blood Count 4.40 x10^6/uL (4.30-5.70) 4.09 x10^6/uL (4.30-5.70) Hemoglobin 13.8 g/dL (13.0-17.5) 13.1 g/dL (13.0-17.5) Hematocrit 40.3 % (39.0-53.0) 37.2 % (39.0-53.0) Mean Corpuscular Volume 92 fL (79-100) 91 fL (79-100) Mean Corpuscular Hemoglobin 31 pg (25-35) 32 pg (25-35) Mean Corpuscular Hemoglobin Concent 34 g/dL (31-37) 35 g/dL (31-37) Red Cell Distribution Width 13.4 % (11.5-14.5) 13.5 % (11.5-14.5) Platelet Count 279 x10^3/uL (140-400) 250 x10^3/uL (140-400) Neutrophils (%) (Auto) 74 % (31-73) 61 % (31-73) Lymphocytes (%) (Auto) 14 % (24-48) 24 % (24-48) Monocytes (%) (Auto) 11 % (0-9) 11 % (0-9) Eosinophils (%) (Auto) 1 % (0-3) 4 % (0-3) Basophils (%) (Auto) 0 % (0-3) 1 % (0-3) Neutrophils # (Auto) 7.3 x10^3uL (1.8-7.7) 4.6 x10^3uL (1.8-7.7) Lymphocytes # (Auto) 1.4 x10^3/uL (1.0-4.8) 1.7 x10^3/uL (1.0-4.8) Monocytes # (Auto) 1.1 x10^3/uL (0.0-1.1) 0.8 x10^3/uL (0.0-1.1) Eosinophils # (Auto) 0.1 x10^3/uL (0.0-0.7) 0.3 x10^3/uL (0.0-0.7) Basophils # (Auto) 0.0 x10^3/uL (0.0-0.2) 0.1 x10^3/uL (0.0-0.2) Erythrocyte Sedimentation Rate 33 (0-15) Sodium Level 141 mmol/L (136-145) 140 mmol/L (136-145) Potassium Level 3.6 mmol/L (3.5-5.1) 3.6 mmol/L (3.5-5.1) Chloride Level 103 mmol/L (98-107) 106 mmol/L (98-107) Carbon Dioxide Level 29 mmol/L (21-32) 26 mmol/L (21-32) Anion Gap 9 (6-14) 8 (6-14) Blood Urea Nitrogen 23 mg/dL (8-26) 18 mg/dL (8-26) Creatinine 1.4 mg/dL (0.7-1.3) 1.2 mg/dL (0.7-1.3) Estimated GFR (Cockcroft-Gault) 49.8 59.5 Glucose Level 100 mg/dL (70-99) 88 mg/dL (70-99) Hemoglobin A1c 5.2 % (4.8-5.6) Lactic Acid Level 1.0 mmol/L (0.4-2.0) Calcium Level 8.5 mg/dL (8.5-10.1) 8.6 mg/dL (8.5-10.1) BUN/Creatinine Ratio 15 (6-20) Total Bilirubin 1.9 mg/dL (0.2-1.0) Aspartate Amino Transf (AST/SGOT) 13 U/L (15-37) Alanine Aminotransferase (ALT/SGPT) 13 U/L (16-63) Alkaline Phosphatase 73 U/L (46-116) Total Protein 6.3 g/dL (6.4-8.2) Albumin 2.6 g/dL (3.4-5.0) Albumin/Globulin Ratio 0.7 (1.0-1.7) Assessment and Plan Assessmemt and Plan Problems Medical Problems: (1) Cellulitis Status: Acute (2) Wound of foot Status: Acute Comment Review of Relevant I have reviewed the following items dat (where applicable) has been applied. Labs Laboratory Tests Test 01/01/18 16:30 01/02/18 06:30 White Blood Count 9.9 x10^3/uL (4.0-11.0) 7.4 x10^3/uL (4.0-11.0) Red Blood Count 4.40 x10^6/uL (4.30-5.70) 4.09 x10^6/uL (4.30-5.70) Hemoglobin 13.8 g/dL (13.0-17.5) 13.1 g/dL (13.0-17.5) Hematocrit 40.3 % (39.0-53.0) 37.2 % (39.0-53.0) Mean Corpuscular Volume 92 fL (79-100) 91 fL (79-100) Mean Corpuscular Hemoglobin 31 pg (25-35) 32 pg (25-35) Mean Corpuscular Hemoglobin Concent 34 g/dL (31-37) 35 g/dL (31-37) Red Cell Distribution Width 13.4 % (11.5-14.5) 13.5 % (11.5-14.5) Platelet Count 279 x10^3/uL (140-400) 250 x10^3/uL (140-400) Neutrophils (%) (Auto) 74 % (31-73) 61 % (31-73) Lymphocytes (%) (Auto) 14 % (24-48) 24 % (24-48) Monocytes (%) (Auto) 11 % (0-9) 11 % (0-9) Eosinophils (%) (Auto) 1 % (0-3) 4 % (0-3) Basophils (%) (Auto) 0 % (0-3) 1 % (0-3) Neutrophils # (Auto) 7.3 x10^3uL (1.8-7.7) 4.6 x10^3uL (1.8-7.7) Lymphocytes # (Auto) 1.4 x10^3/uL (1.0-4.8) 1.7 x10^3/uL (1.0-4.8) Monocytes # (Auto) 1.1 x10^3/uL (0.0-1.1) 0.8 x10^3/uL (0.0-1.1) Eosinophils # (Auto) 0.1 x10^3/uL (0.0-0.7) 0.3 x10^3/uL (0.0-0.7) Basophils # (Auto) 0.0 x10^3/uL (0.0-0.2) 0.1 x10^3/uL (0.0-0.2) Erythrocyte Sedimentation Rate 33 (0-15) Sodium Level 141 mmol/L (136-145) 140 mmol/L (136-145) Potassium Level 3.6 mmol/L (3.5-5.1) 3.6 mmol/L (3.5-5.1) Chloride Level 103 mmol/L (98-107) 106 mmol/L (98-107) Carbon Dioxide Level 29 mmol/L (21-32) 26 mmol/L (21-32) Anion Gap 9 (6-14) 8 (6-14) Blood Urea Nitrogen 23 mg/dL (8-26) 18 mg/dL (8-26) Creatinine 1.4 mg/dL (0.7-1.3) 1.2 mg/dL (0.7-1.3) Estimated GFR (Cockcroft-Gault) 49.8 59.5 Glucose Level 100 mg/dL (70-99) 88 mg/dL (70-99) Hemoglobin A1c 5.2 % (4.8-5.6) Lactic Acid Level 1.0 mmol/L (0.4-2.0) Calcium Level 8.5 mg/dL (8.5-10.1) 8.6 mg/dL (8.5-10.1) BUN/Creatinine Ratio 15 (6-20) Total Bilirubin 1.9 mg/dL (0.2-1.0) Aspartate Amino Transf (AST/SGOT) 13 U/L (15-37) Alanine Aminotransferase (ALT/SGPT) 13 U/L (16-63) Alkaline Phosphatase 73 U/L (46-116) Total Protein 6.3 g/dL (6.4-8.2) Albumin 2.6 g/dL (3.4-5.0) Albumin/Globulin Ratio 0.7 (1.0-1.7) Laboratory Tests Test 01/01/18 16:30 01/02/18 06:30 White Blood Count 9.9 x10^3/uL (4.0-11.0) 7.4 x10^3/uL (4.0-11.0) Red Blood Count 4.40 x10^6/uL (4.30-5.70) 4.09 x10^6/uL (4.30-5.70) Hemoglobin 13.8 g/dL (13.0-17.5) 13.1 g/dL (13.0-17.5) Hematocrit 40.3 % (39.0-53.0) 37.2 % (39.0-53.0) Mean Corpuscular Volume 92 fL (79-100) 91 fL (79-100) Mean Corpuscular Hemoglobin 31 pg (25-35) 32 pg (25-35) Mean Corpuscular Hemoglobin Concent 34 g/dL (31-37) 35 g/dL (31-37) Red Cell Distribution Width 13.4 % (11.5-14.5) 13.5 % (11.5-14.5) Platelet Count 279 x10^3/uL (140-400) 250 x10^3/uL (140-400) Neutrophils (%) (Auto) 74 % (31-73) 61 % (31-73) Lymphocytes (%) (Auto) 14 % (24-48) 24 % (24-48) Monocytes (%) (Auto) 11 % (0-9) 11 % (0-9) Eosinophils (%) (Auto) 1 % (0-3) 4 % (0-3) Basophils (%) (Auto) 0 % (0-3) 1 % (0-3) Neutrophils # (Auto) 7.3 x10^3uL (1.8-7.7) 4.6 x10^3uL (1.8-7.7) Lymphocytes # (Auto) 1.4 x10^3/uL (1.0-4.8) 1.7 x10^3/uL (1.0-4.8) Monocytes # (Auto) 1.1 x10^3/uL (0.0-1.1) 0.8 x10^3/uL (0.0-1.1) Eosinophils # (Auto) 0.1 x10^3/uL (0.0-0.7) 0.3 x10^3/uL (0.0-0.7) Basophils # (Auto) 0.0 x10^3/uL (0.0-0.2) 0.1 x10^3/uL (0.0-0.2) Erythrocyte Sedimentation Rate 33 (0-15) Sodium Level 141 mmol/L (136-145) 140 mmol/L (136-145) Potassium Level 3.6 mmol/L (3.5-5.1) 3.6 mmol/L (3.5-5.1) Chloride Level 103 mmol/L (98-107) 106 mmol/L (98-107) Carbon Dioxide Level 29 mmol/L (21-32) 26 mmol/L (21-32) Anion Gap 9 (6-14) 8 (6-14) Blood Urea Nitrogen 23 mg/dL (8-26) 18 mg/dL (8-26) Creatinine 1.4 mg/dL (0.7-1.3) 1.2 mg/dL (0.7-1.3) Estimated GFR (Cockcroft-Gault) 49.8 59.5 Glucose Level 100 mg/dL (70-99) 88 mg/dL (70-99) Hemoglobin A1c 5.2 % (4.8-5.6) Lactic Acid Level 1.0 mmol/L (0.4-2.0) Calcium Level 8.5 mg/dL (8.5-10.1) 8.6 mg/dL (8.5-10.1) BUN/Creatinine Ratio 15 (6-20) Total Bilirubin 1.9 mg/dL (0.2-1.0) Aspartate Amino Transf (AST/SGOT) 13 U/L (15-37) Alanine Aminotransferase (ALT/SGPT) 13 U/L (16-63) Alkaline Phosphatase 73 U/L (46-116) Total Protein 6.3 g/dL (6.4-8.2) Albumin 2.6 g/dL (3.4-5.0) Albumin/Globulin Ratio 0.7 (1.0-1.7) Medications Current Medications Vancomycin HCl (Vanco Per Pharmacy) 1 each PRN DAILY PRN MC SEE COMMENTS Last administered on 01/01/18at 18:40; Start 01/01/18 at 16:30 Vancomycin HCl 2 gm/Sodium Chloride 500 ml @ 250 mls/hr ONCE ONCE IV Last administered on 01/01/18at 18:17; Start 01/01/18 at 17:00; Stop 01/01/18 at 18:59 ; Status DC Ondansetron HCl (Zofran) 4 mg PRN Q8HRS PRN IV NAUSEA/VOMITING; Start 01/01/18 at 17:15; Stop 01/02/18 at 11:37; Status DC Piperacillin Sod/ Tazobactam Sod (Zosyn Per Pharmacy) 1 each PRN DAILY PRN MC SEE COMMENTS; Start 01/01/18 at 17:30 Piperacillin Sod/ Tazobactam Sod 3.375 gm/Sodium Chloride 50 ml @ 100 mls/hr ONCE ONCE IV Last administered on 01/01/18at 17:36; Start 01/01/18 at 17:30; Stop 01/01/18 at 17:59; Status DC Piperacillin Sod/ Tazobactam Sod 3.375 gm/Sodium Chloride 50 ml @ 100 mls/hr Q6HRS IV Last administered on 01/02/18at 14:40; Start 01/02/18 at 00:00 Lactobacillus Rhamnosus (Culturelle) 1 cap BID PO Last administered on at 09:37; Start 01/01/18 at 21:00 Vancomycin HCl 1.5 gm/Sodium Chloride 500 ml @ 250 mls/hr Q12H IV Last administered on 01/02/18at 06:16; Start 01/02/18 at 06:00 Vancomycin HCl (Vancomycin Trough Level) 1 each 1X ONCE MC ; Start 01/03/18 at 05:30; Stop 01/03/18 at 05:31 Meclizine HCl (Antivert) 25 mg PRN TID PRN PO DIZZINESS; Start 01/01/18 at 23: 00 Enoxaparin Sodium (Lovenox 40mg Syringe) 40 mg Q24H SQ Last administered on at 23:35; Start 01/01/18 at 23:00 Acetaminophen (Tylenol) 650 mg PRN Q6HRS PRN PO FEVER; Start 01/02/18 at 11:45 Ondansetron HCl (Zofran) 4 mg PRN Q6HRS PRN IV NAUSEA/VOMITING; Start 01/02/18 at 11:45 Morphine Sulfate (Morphine Sulfate) 2 mg PRN Q2HR PRN IV MODERATE TO SEVERE PAIN; Start 01/02/18 at 11:45 Tramadol HCl (Ultram) 50 mg PRN Q6HRS PRN PO MILD TO MODERATE PAIN; Start 01/02 at 11:45 Docusate Sodium (Colace) 100 mg PRN DAILY PRN PO CONSTIPATION; Start 01/02/18 at 11:45 Active Scripts Active Meclizine Hcl 25 Mg Tablet 25 Mg PO PRN TID PRN dizziness Levaquin (Levofloxacin) 500 Mg Tablet 500 Mg PO DAILY Reported No Known Medications Prior To Admisstion (Info) Each 1 Each Vitals/I & O Vital Sign - Last 24 Hours 01/01/18 01/01/18 01/01/18 01/01/18 16:06 16:06 16:45 17:45 Temp 99.9 99.9 Pulse 88 77 82 78 Resp 20 20 20 20 B/P (MAP) 140/78 (98) 143/81 (101) 143/81 (101) 142/75 (97) Pulse Ox 96 100 97 O2 Delivery Room Air Room Air Room Air Room Air 01/01/18 01/01/18 01/01/18 01/01/18 18:15 19:15 19:30 23:08 Temp 98.2 97.4 98.2 97.4 Pulse 78 68 68 Resp 20 18 18 B/P (MAP) 135/59 (84) 133/67 (89) 110/64 (79) Pulse Ox 100 93 96 O2 Delivery Room Air Room Air Room Air Room Air 01/02/18 01/02/18 01/02/18 01/02/18 03:13 07:00 07:35 11:00 Temp 97.8 97.9 97.6 97.8 97.9 97.6 Pulse 66 64 65 Resp 18 16 16 B/P (MAP) 117/62 (80) 130/71 (90) 213/73 (119) Pulse Ox 96 95 94 O2 Delivery Room Air Room Air Room Air Room Air Intake and Output 01/01/18 01/01/18 01/02/18 15:00 23:00 07:00 Intake Total 750 ml 2260 ml Output Total 1400 ml Balance 750 ml 860 ml BERNARDO GRUBBS MD Jan 02, 2018 15:06
[2018-01-02] MEDS ORDERED: LABETALOL 20 MG/4 ML DISP.SYRIN. IVP PRN (15:15)
[2018-01-02] MEDS: VANCOMYCIN PER PHARMACY MC PRN (15:41)
--- NOTE | 2018-01-02 15:57 | PDOC ---
Provider Note Provider Note (please see full dictation) 72 yo male with DM and peripheral neuropathy presents with a 1 week history of left foot swelling and redness. Admitted for more evaluation. He has swelling , redness, and slight fluctuance of the left 3rd toe. Healed scar at the dorsal left foot over 4th metatarsal head. Suspect left foot/toe abscess. He has weak distal left pulses, but may have adequate flow to facilitate healing. Will get a left leg arterial ultrasound to better assess arterial flow. Agree with I&D by Ortho. AP HITCHCOCK MD Jan 02, 2018 15:57
[2018-01-02] MEDS ORDERED: DEXAMETHASONE SOD PHOS 20 MG/5 ML VIAL. ONE (16:29)
[2018-01-02] MEDS ORDERED: PROPOFOL 20 ML IV ONE (16:29)
[2018-01-02] MEDS ORDERED: ONDANSETRON PF 4 MG/2 ML VIAL. ONE (16:29)
[2018-01-02] MEDS ORDERED: fentaNYL PF VIAL 100 MCG/2 ML VIAL ONE (17:48)
[2018-01-02] MEDS ORDERED: SEVOFLURANE 31 TO 60 MINUTES. IH ONE (18:18)
--- NOTE | 2018-01-02 18:45 | PDOC4 ---
Operative Note Operative Note Date of surgery: 01/02/2018 Preoperative diagnosis: Reported abscess left plantar foot wound Postoperative diagnosis: No abscess found, joint fluid from third metatarsal phalangeal joint returned from wound Operative procedure: Irrigation debridement exploration left foot wound Surgeon: Carlos Anesthesia: Gen. Estimated blood loss: 15 mL Complications: None Intraoperative cultures sent for left foot wound Operative indications: Eulogio is a 72-year-old male admitted from the emergency department from his patient resource coordinator office with a history of about a week of left foot pain and swelling he was in his patient resource coordinator's office, Dr Aguirre, who reported making an incision over the plantar foot wound and observing purulent drainage thus sending him into the emergency department for admission IV antibiotics and further evaluation. There was a concern for osteomyelitis at the tip of the third toe based on radiologic appearance however my discussion with him is that this area did not appear to be clinically involved and he doesn't recall any problems at the third toe only at the plantar aspect of his foot where he remembers her making an incision and he noted that he has a history of neuropathy in the left foot only with no diabetes or known precipitating factors but he has had to check his foot carefully for a long time if he gets anything in his shoe and has had wound problems before with a resection of his fourth metatarsal phalangeal joint about a year ago by another patient resource coordinator. I went over with him that based on the history and records it's certainly concerning if he has a foot abscess that he may have risk particularly with the total knee arthroplasty and we talked about the relative risks and benefits of surgical evaluation and treatment possible leaving the foot (if an abscess is noted may be with wound VAC treatment. All his questions were answered he agrees to proceed with surgical evaluation and treatment and was likewise concerned about the total knee arthroplasty spread of infection etc. Operative text: Patient was identified procedure verified patient placed in the supine position on the operating table. After adequate amounts of general anesthesia were administered the left lower extremity was prepped and draped in standard sterile fashion with a thigh tourniquet. After timeout was performed patient procedure identified and verified and incision was made longitudinally over the plantar aspect of the foot where the previous wound existed roughly overlying the ball of the foot area at the third metatarsal head area. No purulent fluid was noted whatsoever just bleeding and on blunt exploration some joint fluid return was noted from the third metatarsal phalangeal joint this area was cultured but again no evidence of cartilage abnormality bony softening or other concerning conditions associated with infection were observed. Likewise no devitalized tissue or tracking of the wound was noted. No purulent fluid whatsoever was observed. Skin edges and subcutaneous area and the area of the wound were debrided sharply with Aiden good bleeding tissue was observed throughout thorough irrigation carried out with normal saline solution with a bulb syringe and given that I really did not see evidence of abscess on this thorough exploration and debridement closed the wound primarily with nylon suture sterile dressings were applied he was returned recovery room in stable condition having tolerated procedure well. Tourniquet was not inflated during the procedure ADY CODY MD Jan 02, 2018 18:45
[2018-01-02] MEDS: ENOXAPARIN 40 MG/0.4 ML SYRINGE. SQ SCH (21:47)
--- NOTE | 2018-01-02 22:15 | CONS ---
DATE OF CONSULTATION: 01/02/2018 CHIEF COMPLAINT: Left foot swelling and redness. HISTORY OF PRESENT ILLNESS: The patient is a 72-year-old male who is admitted through the Emergency Room for about a week history of left foot redness and swelling. He had undergone previous left fourth metatarsal surgery a little over a year ago for an infection. This subsequently healed. He was seen by a implementation advisor earlier today for foot swelling and was sent to the hospital for IV antibiotics after purulent drainage was obtained from the plantar aspect of his wound after he had this incised. He denied any previous drainage prior to presentation. He denies any fevers or chills. PAST MEDICAL HISTORY: 1. Low grade B cell lymphoma. 2. Osteoarthritis. 3. Peripheral neuropathy. PAST SURGICAL HISTORY: 1. Left foot surgery as noted above. 2. Left total knee arthroplasty. 3. Right elbow surgery. CURRENT MEDICATIONS: Include vancomycin, labetalol, docusate sodium, tramadol, morphine, Zofran, Zosyn and Lovenox. ALLERGIES: No known drug allergies. SOCIAL HISTORY: He denies any smoking or alcohol use. FAMILY HISTORY: Noncontributory. REVIEW OF SYSTEMS: No recent fevers, chills, chest pain or shortness of breath. No new abdominal or back pain. No nausea, vomiting, diarrhea, constipation, hematochezia, melena or other GI symptoms. No dysuria or hematuria. He denies any previous foot or leg pain with activity other than recent swelling. PHYSICAL EXAMINATION: GENERAL: This is a well-developed male, in no acute distress. VITAL SIGNS: Temperature 97.6, pulse 65, blood pressure 213/73 and it was 130/70 just shortly prior. NECK: Supple, no lymphadenopathy. CARDIOVASCULAR: Regular rhythm. ABDOMEN: Soft, nontender, nondistended and no palpable masses. EXTREMITIES: He has palpable radial, femoral, popliteal and right pedal pulses. Left pedal pulses are much weaker. He has severe left forefoot swelling and redness with erythema and swelling extending out the left third toe. There is some fluctuance at the distal aspect of the toe. He has short incision on the plantar aspect of his left foot. He has a healed surgical scar on the dorsal aspect over the fourth metatarsophalangeal joint. LABORATORY DATA: Significant for white blood cells 7.4, hemoglobin 13.1 and platelet count of 250. Sodium 140, potassium 3.6, BUN 18, creatinine 1.2, glucose 88. Hemoglobin A1c is 5.2. Foot x-ray showed changes of destruction at the distal aspect of the left third toe consistent with osteomyelitis. IMPRESSION: 1. Left foot abscess and cellulitis. 2. Suspected left third distal toe osteomyelitis. 3. Peripheral neuropathy. 4. Hyperlipidemia. RECOMMENDATION: 1. Arterial ultrasound to better evaluate arterial flow to the left foot. I suspect he may have adequate arterial flow, but would like definitive study due to his diminished pulses. 2. Broad spectrum IV antibiotics. 3. Agree with incision and drainage and possible toe amputation. Orthopedic Surgery has been consulted and is planning on intervening later today per nursing care. AP HITCHCOCK MD DR: TAMI/smiley JOB#: [id number] / [id number] LAMAR Francis MD, THOMAS MD LILLIG, SHAWN MD
--- NOTE | 2018-01-02 23:20 | CONS ---
DATE OF CONSULTATION: 01/02/2018 Orthopedic Consultation REQUESTING PHYSICIAN: Eulogio Pollard MD REASON FOR CONSULTATION: Reported left foot abscess. HISTORY OF PRESENT ILLNESS: The patient is a 72-year-old male with reported neuropathy that is nondiabetic in origin, in his left foot only. He said the right foot is unaffected, but he just has decreased sensation over the left foot and has had difficulties in the past with wounds and infection as a result. He says about a year ago, Dr. William had performed a resection of the joint at the 4th metatarsophalangeal joint. He has a scar over the dorsal aspect of the foot in that area and his 4th toe is popped up somewhat. He states that he was then at Dr. Aguirre's office who is a landfill gas collection system operator and she noted a foot wound on the plantar aspect of his foot. The patient states that she made a small incision on the bottom of the foot and purulent fluid came out, so he was sent for admission to the emergency department and IV antibiotics and orthopedics was consulted to evaluate him. PAST MEDICAL HISTORY: Significant for the left foot neuropathy of unknown origin, cancer, hypertension, cancer is a low-grade lymphoma. PAST SURGICAL HISTORY: Significant for the left foot surgery as noted before, a left total knee arthroplasty done several years ago by Dr. Larkin, right elbow surgery and right ACL repair. MEDICATIONS: List is reviewed. ALLERGIES: He has no known drug allergies. FAMILY HISTORY: Hypertension. SOCIAL HISTORY: Denies smoking, alcohol or drug use. REVIEW OF SYSTEMS: Denies any fever or chills. He has had some redness and swelling in his left foot for about the past week. Again, baseline neuropathy in the left foot and never any diagnosis or discussion of diabetes. PHYSICAL EXAMINATION: GENERAL: He is afebrile. EXTREMITIES: On examination of the left foot, he has decreased sensation globally, particularly over the plantar aspect compared to the right. Has a little bit of a cavus foot presentation. He has a well-healed incision from the previous resection of his metatarsophalangeal joint on the 4th with his 4th toe in significant extension. The second and third toes are in significant extension as well. He does not indicate any problems necessarily with rubbing on his shoes etc, but has to carefully check his feet. He has normal alignment and stability of bilateral ankles. Normal examination of the contralateral right foot. He has a well-healed incision from a total knee arthroplasty on the left. No evidence of any redness, warmth, erythema. He has good ligament balance and stability. No note of effusion. Normal examination of the contralateral right knee. LABORATORY DATA: White count on admission 9.9. IMAGING: X-rays of the left foot show resection of the 4th metatarsophalangeal joint. The bony edges are all rounded off indicating this is an old surgical resection, corresponds with the patient's history. X-rays also note an erosion of the distal tuft of the third phalanx at the tip of the toe with a radiology report indicating a soft tissue wound seen here with a concern for osteomyelitis and also notes dislocation of the third metatarsophalangeal joint with no fracture. IMPRESSION: 1. History of left foot redness and swelling. 2. Report of purulent drainage and incision in the podiatry office over foot wound that was reported as purulent in nature. 3. Radiologic concern of osteomyelitis. TREATMENT PLAN: I went over with him that regarding the third toe, he really does not seem to have any wound over this area at all even remotely. Furthermore, he says this does not really rub on his shoes and his toes are curled up somewhat to where I would not expect it to. Therefore, I do think the third toe was an issue in terms of osteomyelitis and just may be a radiologic abnormality. He was very concerned, however, about the reported purulent drainage out of the incision on the bottom of his foot at the podiatry office that he was sent in and given the concern with the swelling and redness, this report and the fact that he has a total knee arthroplasty, I judged that exploration of this is necessary on an urgent basis. I certainly do not want any sepsis from a possible abscess to occur and infect the knee and give him bigger problems. He agreed with this approach and wishes to proceed with surgery, which will occur today as soon as his n.p.o. status allows 6 hours post his last food consumption, which was 11:30 a.m. ADY CODY MD DR: RAYMON/simley JOB#: [id number] / [id number]
[2018-01-03 03:00] VITALS: BP 123/61
[2018-01-03] MEDS: PIPERACILLIN/TAZOBACTAM 3.375 GM in IV NORMAL SALINE 50ML 50 ML IV SCH ×4 (05:15→23:11)
[2018-01-03 06:04] LABS: CALCIUM 8.1 mg/dL (8.5-10.1); GFR 73.5; POTASSIUM 4.4 mmol/L (3.5-5.1)
[2018-01-03 06:07] LABS: VANC TR 15.5 mcg/mL (10.0-20.0)
[2018-01-03 06:12] LABS: BASO % 0 % (0-3); EOS % 0 % (0-3); HEMATOCRIT 36.9 % (39.0-53.0); HEMOGLOBIN 12.7 g/dL (13.0-17.5); LYMPH # 0.9 x10^3/uL (1.0-4.8); LYMPH % 15 % (24-48); MEAN CORPUSCULAR HEMOGLOBIN 31 pg (25-35); MEAN CORPUSCULAR HGB CONC 34 g/dL (31-37); MEAN CORPUSCULAR VOLUME 91 fL (79-100); MONO # 0.3 x10^3/uL (0.0-1.1); MONO % 5 % (0-9); NEUT # 5.1 x10^3uL (1.8-7.7); NEUT % 80 % (31-73); PLATELET COUNT 273 x10^3/uL (140-400); RED BLOOD COUNT 4.04 x10^6/uL (4.30-5.70); RED CELL DISTRIBUTION WIDTH 13.2 % (11.5-14.5); WHITE BLOOD COUNT 6.4 x10^3/uL (4.0-11.0)
[2018-01-03] MEDS: VANCOMYCIN 1.5 GM in IV NORMAL SALINE 500ML BAG 500 ML IV SCH (06:15)
[2018-01-03] MEDS: VANCOMYCIN PER PHARMACY MC PRN (06:18)
[2018-01-03 07:00] VITALS: BP 142/73
--- NOTE | 2018-01-03 08:13 | RAD ---
Left lower extremity arterial ultrasound, 01/02/2018: HISTORY: Infection, ulcer Duplex evaluation of the arteries of the left lower extremity was performed including grayscale, color-flow and spectral Doppler analysis. The left common femoral artery demonstrates a triphasic Doppler waveform. The femoral and popliteal arteries appear widely patent with biphasic Doppler waveforms. No significant focal velocity acceleration is seen to suggest significant focal stenosis. Patent posterior tibial, anterior tibial and peroneal arteries are present in the left lower leg demonstrating biphasic Doppler waveforms. The dorsalis pedis artery could not be evaluated due to overlying bandages. IMPRESSION: No duplex evidence of significant arterial occlusive disease in the left lower extremity from the level of the groin down to the ankle. Electronically signed by: Hong Canseco MD (01/03/2018 8:09 AM) [facility]
[2018-01-03] MEDS: LACTOBACILLUS RHAMNOSUS GG 1 CAPSULE. PO SCH ×2 (08:30→20:17)
--- NOTE | 2018-01-03 09:51 | PDOC ---
Infectious Disease Note Subjective: Subjective Pt feels better today no f/c/n/v/d had I and D yesterday ROS: ROS Negative except for above. Vital Signs: Vital Signs Vital Signs Date Time Temp Pulse Resp B/P (MAP) Pulse Ox O2 Delivery O2 Flow Rate FiO2 01/03/18 07:00 97.9 58 16 142/73 (96) 97 Room Air 97.9 01/02/18 18:21 10 Physical Exam: PHYSICAL EXAM GENERAL: Alert, oriented x 3 male, eating lunch, in no acute distress, comfortable, cooperative. HEENT: Normocephalic, atraumatic, anicteric. No thrush. NECK: Supple. LUNGS: Clear. HEART: S1, S2. ABDOMEN: Soft. Bowel sounds present. EXTREMITIES: Left foot dressing in place,dry intact DERMATOLOGIC: No generalized rash except for left foot changes as above. NEUROLOGIC: Grossly nonfocal. PSYCHIATRIC: Appropriate mood and affect. Medications: Inpatient Meds: Current Medications Medications (Trade) Dose Ordered Sig/Citlalli Start Time Stop Time Status Last Admin Dose Admin Acetaminophen (Tylenol) 650 mg PRN Q6HRS PRN 01/02/18 11:45 Dexamethasone Sodium Phosphate (Decadron) 20 mg STK-MED ONCE 01/02/18 16:29 01/02/18 16:30 DC Docusate Sodium (Colace) 100 mg PRN DAILY PRN 01/02/18 11:45 Enoxaparin Sodium (Lovenox 40mg Syringe) 40 mg Q24H 01/01/18 23:00 01/02/18 21:47 40 MG Fentanyl Citrate (Fentanyl 2ml Vial) 100 mcg STK-MED ONCE 01/02/18 17:48 01/02/18 17:49 DC Labetalol HCl (Normodyne Iv Push) 20 mg PRN Q2HR PRN 01/02/18 15:15 Lactobacillus Rhamnosus (Culturelle) 1 cap BID 01/01/18 21:00 01/03/18 08:30 1 CAP Meclizine HCl (Antivert) 25 mg PRN TID PRN 01/01/18 23:00 Morphine Sulfate (Morphine Sulfate) 2 mg PRN Q2HR PRN 01/02/18 11:45 Ondansetron HCl (Zofran) 4 mg STK-MED ONCE 01/02/18 16:29 01/02/18 16:30 DC Piperacillin Sod/ Tazobactam Sod (Zosyn Per Pharmacy) 1 each PRN DAILY PRN 01/01/18 17:30 Piperacillin Sod/ Tazobactam Sod 3.375 gm/Sodium Chloride 50 ml @ 100 mls/hr Q6HRS 01/02/18 00:00 01/03/18 05:15 100 MLS/HR Propofol 20 ml @ As Directed STK-MED ONCE 01/02/18 16:29 01/02/18 16:30 DC Sevoflurane (Ultane) 30 ml STK-MED ONCE 01/02/18 18:18 01/02/18 18:19 DC Tramadol HCl (Ultram) 50 mg PRN Q6HRS PRN 01/02/18 11:45 01/02/18 21:49 50 MG Vancomycin HCl (Vanco Per Pharmacy) 1 each PRN DAILY PRN 01/01/18 16:30 01/03/18 06:18 1 EACH Vancomycin HCl (Vancomycin Trough Level) 1 each 1X ONCE 01/03/18 05:30 01/03/18 05:31 DC 01/03/18 05:30 1 EACH Vancomycin HCl 1.5 gm/Sodium Chloride 500 ml @ 250 mls/hr Q12H 01/02/18 06:00 01/03/18 06:15 250 MLS/HR Vancomycin HCl 2 gm/Sodium Chloride 500 ml @ 250 mls/hr ONCE ONCE 01/01/18 17:00 01/01/18 18:59 DC 01/01/18 18:17 250 MLS/HR Labs: Lab Laboratory Tests Test 01/03/18 05:20 White Blood Count 6.4 x10^3/uL (4.0-11.0) Red Blood Count 4.04 x10^6/uL (4.30-5.70) Hemoglobin 12.7 g/dL (13.0-17.5) Hematocrit 36.9 % (39.0-53.0) Mean Corpuscular Volume 91 fL (79-100) Mean Corpuscular Hemoglobin 31 pg (25-35) Mean Corpuscular Hemoglobin Concent 34 g/dL (31-37) Red Cell Distribution Width 13.2 % (11.5-14.5) Platelet Count 273 x10^3/uL (140-400) Neutrophils (%) (Auto) 80 % (31-73) Lymphocytes (%) (Auto) 15 % (24-48) Monocytes (%) (Auto) 5 % (0-9) Eosinophils (%) (Auto) 0 % (0-3) Basophils (%) (Auto) 0 % (0-3) Neutrophils # (Auto) 5.1 x10^3uL (1.8-7.7) Lymphocytes # (Auto) 0.9 x10^3/uL (1.0-4.8) Monocytes # (Auto) 0.3 x10^3/uL (0.0-1.1) Eosinophils # (Auto) 0.0 x10^3/uL (0.0-0.7) Basophils # (Auto) 0.0 x10^3/uL (0.0-0.2) Sodium Level 143 mmol/L (136-145) Potassium Level 4.4 mmol/L (3.5-5.1) Chloride Level 108 mmol/L (98-107) Carbon Dioxide Level 26 mmol/L (21-32) Anion Gap 9 (6-14) Blood Urea Nitrogen 17 mg/dL (8-26) Creatinine 1.0 mg/dL (0.7-1.3) Estimated GFR (Cockcroft-Gault) 73.5 Glucose Level 119 mg/dL (70-99) Calcium Level 8.1 mg/dL (8.5-10.1) Vancomycin Level Trough 15.5 mcg/mL (10.0-20.0) Vancomycin Last Dose Date 01/02/18 Vancomycin Last Dose Time 1800 Micro RUN DATE: 01/02/18 PAGE 1 RUN TIME: 5268 [facility] [address] [place] [address] Oswaldo Harris M.D., Tank Cooper PATIENT: JOSE GJG ACCT: [id number] LOC: [address] [place] [address] U : [id number] AGE/SX: 72/M ROOM: 404 REG : 01/01/[address]: JG AMADO MD : 1945 BED: 1 DIS : STATUS: ADM IN TLOC: SPEC #: [id number] ANGELINA: 01/02/18 STATUS: RES REQ #: [id number] RECD: 01/02/[address]: JG AMADO MD SOURCE: FOOT ENTR: 01/02/[address]: LAMAR BERRIOS MD SPDESC: WOUND ELBERT BERRIOS MD, SHAWN P MD ORDERED: ANAER/AEROB/GS Procedure Result ANAEROBIC-AEROBIC CULTURE PENDING ANAEROBIC RES 1 PENDING AEROBIC CULT PENDING AEROBIC RES 1 PENDING GRAM STAIN Final Final report GRAM STAIN RES 1 Final Comment No white blood cells seen. GRAM STAIN RES 2 Final No organisms seen Performed at: [address], [place], [place] [id number] University President: YOLANDA Marinelli MD, Phone: [phone] Objective: Assessment: 1. Left foot cellulitis with left plantar wound with purulence at outside food service specialist's office with history of left fourth toe osteomyelitis, status post surgery with erosion of the distal tuft of the third distal phalanx with possible osteomyelitis. S/P I AND D WITH no purulence on intraoperative surgical report Cult pending 2. Dislocation of the third metatarsophalangeal joint. 3. Peripheral neuropathy. 4. Diabetes. 5. History of cancer. Plan: Plan of Care 1. DC IV Vanc start zyvox 2. Cont Zosyn. 2. Monitor renal functions closely. 3. Follow up culture and susceptibility results and lab in a.m. 4. Continue supportive care. LAMAR BERRIOS MD Jan 03, 2018 09:51
[2018-01-03 11:00] VITALS: BP 122/68
[2018-01-03] MEDS ORDERED: MAGNESIUM HYDROXIDE 2,400 MG/30 ML ORAL.SUSP. PO PRN (11:45)
--- NOTE | 2018-01-03 14:52 | PDOC ---
PROGRESS NOTES Chief Complaint Chief Complaint Osteomyelitis left foot s/p i and d 01/02 with associated soft tissue wound. 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 HEENT: Normocephalic, atraumatic, anicteric. No thrush. NECK: Supple. LUNGS: Clear. HEART: S1, S2. ABDOMEN: Soft. Bowel sounds present. EXTREMITIES: Left foot dressing in place,dry intact, will have wound vac on DERMATOLOGIC: No generalized rash except for left foot changes as above. NEUROLOGIC: Grossly nonfocal. PSYCHIATRIC: Appropriate mood and affect. General: Alert, Oriented X3, Cooperative Heart: Regular rate, Normal S1, Normal S2 Lungs: Clear Abdomen: Normal bowel sounds, Soft Extremities: No cyanosis, Normal pulses Skin: Other (left foot sole 1 open wound, mild tenderness, left foot red mild swelling) Labs LABS Laboratory Tests Test 01/03/18 05:20 White Blood Count 6.4 x10^3/uL (4.0-11.0) Red Blood Count 4.04 x10^6/uL (4.30-5.70) Hemoglobin 12.7 g/dL (13.0-17.5) Hematocrit 36.9 % (39.0-53.0) Mean Corpuscular Volume 91 fL (79-100) Mean Corpuscular Hemoglobin 31 pg (25-35) Mean Corpuscular Hemoglobin Concent 34 g/dL (31-37) Red Cell Distribution Width 13.2 % (11.5-14.5) Platelet Count 273 x10^3/uL (140-400) Neutrophils (%) (Auto) 80 % (31-73) Lymphocytes (%) (Auto) 15 % (24-48) Monocytes (%) (Auto) 5 % (0-9) Eosinophils (%) (Auto) 0 % (0-3) Basophils (%) (Auto) 0 % (0-3) Neutrophils # (Auto) 5.1 x10^3uL (1.8-7.7) Lymphocytes # (Auto) 0.9 x10^3/uL (1.0-4.8) Monocytes # (Auto) 0.3 x10^3/uL (0.0-1.1) Eosinophils # (Auto) 0.0 x10^3/uL (0.0-0.7) Basophils # (Auto) 0.0 x10^3/uL (0.0-0.2) Sodium Level 143 mmol/L (136-145) Potassium Level 4.4 mmol/L (3.5-5.1) Chloride Level 108 mmol/L (98-107) Carbon Dioxide Level 26 mmol/L (21-32) Anion Gap 9 (6-14) Blood Urea Nitrogen 17 mg/dL (8-26) Creatinine 1.0 mg/dL (0.7-1.3) Estimated GFR (Cockcroft-Gault) 73.5 Glucose Level 119 mg/dL (70-99) Calcium Level 8.1 mg/dL (8.5-10.1) Vancomycin Level Trough 15.5 mcg/mL (10.0-20.0) Vancomycin Last Dose Date 01/02/18 Vancomycin Last Dose Time 1800 Assessment and Plan Assessmemt and Plan Problems Medical Problems: (1) Cellulitis Status: Acute (2) Wound of foot Status: Acute Comment Review of Relevant I have reviewed the following items dat (where applicable) has been applied. Labs Laboratory Tests Test 01/01/18 16:30 01/02/18 06:30 01/03/18 05:20 White Blood Count 9.9 x10^3/uL (4.0-11.0) 7.4 x10^3/uL (4.0-11.0) 6.4 x10^3/uL (4.0-11.0) Red Blood Count 4.40 x10^6/uL (4.30-5.70) 4.09 x10^6/uL (4.30-5.70) 4.04 x10^6/uL (4.30-5.70) Hemoglobin 13.8 g/dL (13.0-17.5) 13.1 g/dL (13.0-17.5) 12.7 g/dL (13.0-17.5) Hematocrit 40.3 % (39.0-53.0) 37.2 % (39.0-53.0) 36.9 % (39.0-53.0) Mean Corpuscular Volume 92 fL (79-100) 91 fL (79-100) 91 fL (79-100) Mean Corpuscular Hemoglobin 31 pg (25-35) 32 pg (25-35) 31 pg (25-35) Mean Corpuscular Hemoglobin Concent 34 g/dL (31-37) 35 g/dL (31-37) 34 g/dL (31-37) Red Cell Distribution Width 13.4 % (11.5-14.5) 13.5 % (11.5-14.5) 13.2 % (11.5-14.5) Platelet Count 279 x10^3/uL (140-400) 250 x10^3/uL (140-400) 273 x10^3/uL (140-400) Neutrophils (%) (Auto) 74 % (31-73) 61 % (31-73) 80 % (31-73) Lymphocytes (%) (Auto) 14 % (24-48) 24 % (24-48) 15 % (24-48) Monocytes (%) (Auto) 11 % (0-9) 11 % (0-9) 5 % (0-9) Eosinophils (%) (Auto) 1 % (0-3) 4 % (0-3) 0 % (0-3) Basophils (%) (Auto) 0 % (0-3) 1 % (0-3) 0 % (0-3) Neutrophils # (Auto) 7.3 x10^3uL (1.8-7.7) 4.6 x10^3uL (1.8-7.7) 5.1 x10^3uL (1.8-7.7) Lymphocytes # (Auto) 1.4 x10^3/uL (1.0-4.8) 1.7 x10^3/uL (1.0-4.8) 0.9 x10^3/uL (1.0-4.8) Monocytes # (Auto) 1.1 x10^3/uL (0.0-1.1) 0.8 x10^3/uL (0.0-1.1) 0.3 x10^3/uL (0.0-1.1) Eosinophils # (Auto) 0.1 x10^3/uL (0.0-0.7) 0.3 x10^3/uL (0.0-0.7) 0.0 x10^3/uL (0.0-0.7) Basophils # (Auto) 0.0 x10^3/uL (0.0-0.2) 0.1 x10^3/uL (0.0-0.2) 0.0 x10^3/uL (0.0-0.2) Erythrocyte Sedimentation Rate 33 (0-15) Sodium Level 141 mmol/L (136-145) 140 mmol/L (136-145) 143 mmol/L (136-145) Potassium Level 3.6 mmol/L (3.5-5.1) 3.6 mmol/L (3.5-5.1) 4.4 mmol/L (3.5-5.1) Chloride Level 103 mmol/L (98-107) 106 mmol/L (98-107) 108 mmol/L (98-107) Carbon Dioxide Level 29 mmol/L (21-32) 26 mmol/L (21-32) 26 mmol/L (21-32) Anion Gap 9 (6-14) 8 (6-14) 9 (6-14) Blood Urea Nitrogen 23 mg/dL (8-26) 18 mg/dL (8-26) 17 mg/dL (8-26) Creatinine 1.4 mg/dL (0.7-1.3) 1.2 mg/dL (0.7-1.3) 1.0 mg/dL (0.7-1.3) Estimated GFR (Cockcroft-Gault) 49.8 59.5 73.5 Glucose Level 100 mg/dL (70-99) 88 mg/dL (70-99) 119 mg/dL (70-99) Hemoglobin A1c 5.2 % (4.8-5.6) Lactic Acid Level 1.0 mmol/L (0.4-2.0) Calcium Level 8.5 mg/dL (8.5-10.1) 8.6 mg/dL (8.5-10.1) 8.1 mg/dL (8.5-10.1) BUN/Creatinine Ratio 15 (6-20) Total Bilirubin 1.9 mg/dL (0.2-1.0) Aspartate Amino Transf (AST/SGOT) 13 U/L (15-37) Alanine Aminotransferase (ALT/SGPT) 13 U/L (16-63) Alkaline Phosphatase 73 U/L (46-116) Total Protein 6.3 g/dL (6.4-8.2) Albumin 2.6 g/dL (3.4-5.0) Albumin/Globulin Ratio 0.7 (1.0-1.7) Vancomycin Level Trough 15.5 mcg/mL (10.0-20.0) Vancomycin Last Dose Date 01/02/18 Vancomycin Last Dose Time 1800 Laboratory Tests Test 01/03/18 05:20 White Blood Count 6.4 x10^3/uL (4.0-11.0) Red Blood Count 4.04 x10^6/uL (4.30-5.70) Hemoglobin 12.7 g/dL (13.0-17.5) Hematocrit 36.9 % (39.0-53.0) Mean Corpuscular Volume 91 fL (79-100) Mean Corpuscular Hemoglobin 31 pg (25-35) Mean Corpuscular Hemoglobin Concent 34 g/dL (31-37) Red Cell Distribution Width 13.2 % (11.5-14.5) Platelet Count 273 x10^3/uL (140-400) Neutrophils (%) (Auto) 80 % (31-73) Lymphocytes (%) (Auto) 15 % (24-48) Monocytes (%) (Auto) 5 % (0-9) Eosinophils (%) (Auto) 0 % (0-3) Basophils (%) (Auto) 0 % (0-3) Neutrophils # (Auto) 5.1 x10^3uL (1.8-7.7) Lymphocytes # (Auto) 0.9 x10^3/uL (1.0-4.8) Monocytes # (Auto) 0.3 x10^3/uL (0.0-1.1) Eosinophils # (Auto) 0.0 x10^3/uL (0.0-0.7) Basophils # (Auto) 0.0 x10^3/uL (0.0-0.2) Sodium Level 143 mmol/L (136-145) Potassium Level 4.4 mmol/L (3.5-5.1) Chloride Level 108 mmol/L (98-107) Carbon Dioxide Level 26 mmol/L (21-32) Anion Gap 9 (6-14) Blood Urea Nitrogen 17 mg/dL (8-26) Creatinine 1.0 mg/dL (0.7-1.3) Estimated GFR (Cockcroft-Gault) 73.5 Glucose Level 119 mg/dL (70-99) Calcium Level 8.1 mg/dL (8.5-10.1) Vancomycin Level Trough 15.5 mcg/mL (10.0-20.0) Vancomycin Last Dose Date 01/02/18 Vancomycin Last Dose Time 1800 Microbiology 01/01/18 Blood Culture - Preliminary, Resulted NO GROWTH AFTER 1 DAY 01/02/18 Anaerobic/Aerobic Culture, Resulted Pending 01/02/18 Anaerobic Culture Result 1 (EDDA), Resulted Pending 01/02/18 Aerobic Culture, Resulted Pending 01/02/18 Aerobic Culture Result 1 (EDDA), Resulted Pending 01/02/18 Gram Stain - Final, Resulted 01/02/18 Gram Stain Result 1 (EDDA) - Final, Resulted 01/02/18 Gram Stain Result 2 (EDDA) - Final, Resulted Medications Current Medications Vancomycin HCl (Vanco Per Pharmacy) 1 each PRN DAILY PRN MC SEE COMMENTS Last administered on 01/03/18at 06:18; Start 01/01/18 at 16:30; Stop 01/03/18 at 10:37 ; Status DC Vancomycin HCl 2 gm/Sodium Chloride 500 ml @ 250 mls/hr ONCE ONCE IV Last administered on 01/01/18at 18:17; Start 01/01/18 at 17:00; Stop 01/01/18 at 18:59 ; Status DC Ondansetron HCl (Zofran) 4 mg PRN Q8HRS PRN IV NAUSEA/VOMITING; Start 01/01/18 at 17:15; Stop 01/02/18 at 11:37; Status DC Piperacillin Sod/ Tazobactam Sod (Zosyn Per Pharmacy) 1 each PRN DAILY PRN MC SEE COMMENTS; Start 01/01/18 at 17:30 Piperacillin Sod/ Tazobactam Sod 3.375 gm/Sodium Chloride 50 ml @ 100 mls/hr ONCE ONCE IV Last administered on 01/01/18at 17:36; Start 01/01/18 at 17:30; Stop 01/01/18 at 17:59; Status DC Piperacillin Sod/ Tazobactam Sod 3.375 gm/Sodium Chloride 50 ml @ 100 mls/hr Q6HRS IV Last administered on 01/03/18at 12:00; Start 01/02/18 at 00:00 Lactobacillus Rhamnosus (Culturelle) 1 cap BID PO Last administered on at 08:30; Start 01/01/18 at 21:00 Vancomycin HCl 1.5 gm/Sodium Chloride 500 ml @ 250 mls/hr Q12H IV Last administered on 01/03/18at 06:15; Start 01/02/18 at 06:00; Stop 01/03/18 at 10:37 ; Status DC Vancomycin HCl (Vancomycin Trough Level) 1 each 1X ONCE MC Last administered on 01/03/18at 05:30; Start 01/03/18 at 05:30; Stop 01/03/18 at 05:31; Status DC Meclizine HCl (Antivert) 25 mg PRN TID PRN PO DIZZINESS; Start 01/01/18 at 23: 00 Enoxaparin Sodium (Lovenox 40mg Syringe) 40 mg Q24H SQ Last administered on at 21:47; Start 01/01/18 at 23:00 Acetaminophen (Tylenol) 650 mg PRN Q6HRS PRN PO FEVER; Start 01/02/18 at 11:45 Ondansetron HCl (Zofran) 4 mg PRN Q6HRS PRN IV NAUSEA/VOMITING; Start 01/02/18 at 11:45 Morphine Sulfate (Morphine Sulfate) 2 mg PRN Q2HR PRN IV MODERATE TO SEVERE PAIN; Start 01/02/18 at 11:45 Tramadol HCl (Ultram) 50 mg PRN Q6HRS PRN PO MILD TO MODERATE PAIN Last administered on 01/02/18at 21:49; Start 01/02/18 at 11:45 Docusate Sodium (Colace) 100 mg PRN DAILY PRN PO CONSTIPATION; Start 01/02/18 at 11:45 Labetalol HCl (Normodyne Iv Push) 20 mg PRN Q2HR PRN IVP HYPERTENSION, SEE COMMENTS; Start 01/02/18 at 15:15 Dexamethasone Sodium Phosphate (Decadron) 20 mg STK-MED ONCE .ROUTE ; Start at 16:29; Stop 01/02/18 at 16:30; Status DC Ondansetron HCl (Zofran) 4 mg STK-MED ONCE .ROUTE ; Start 01/02/18 at 16:29; Stop 01/02/18 at 16:30; Status DC Propofol 20 ml @ As Directed STK-MED ONCE IV ; Start 01/02/18 at 16:29; Stop at 16:30; Status DC Fentanyl Citrate (Fentanyl 2ml Vial) 100 mcg STK-MED ONCE .ROUTE ; Start at 17:48; Stop 01/02/18 at 17:49; Status DC Sevoflurane (Ultane) 30 ml STK-MED ONCE IH ; Start 01/02/18 at 18:18; Stop 01/02 at 18:19; Status DC Linezolid (Zyvox) 600 mg BID PO ; Start 01/03/18 at 21:00 Senna/Docusate Sodium (Senna Plus) 1 tab BID PO ; Start 01/03/18 at 21:00 Docusate Sodium (Colace) 100 mg BID PO ; Start 01/03/18 at 21:00 Magnesium Hydroxide (Milk Of Magnesia) 2,400 mg PRN Q12HR PRN PO CONSTIPATION; Start 01/03/18 at 11:45 Active Scripts Active Meclizine Hcl 25 Mg Tablet 25 Mg PO PRN TID PRN dizziness Levaquin (Levofloxacin) 500 Mg Tablet 500 Mg PO DAILY Reported No Known Medications Prior To Admisstion (Info) Each 1 Each Vitals/I & O Vital Sign - Last 24 Hours 9/19/18 01/02/18 01/02/18 01/02/18 16:30 18:21 18:36 18:51 Temp 98.7 99.8 98.3 98.2 98.7 99.8 98.3 98.2 Pulse 57 61 66 61 Resp 14 16 16 16 B/P (MAP) 151/72 131/75 148/80 134/72 Pulse Ox 98 100 97 97 O2 Delivery Room Air Simple Mask Room Air Room Air O2 Flow Rate 10 01/02/18 01/02/18 01/02/18 01/02/18 19:00 19:25 19:28 19:43 Temp 97.5 97.5 Pulse 65 63 73 Resp 16 18 B/P (MAP) 114/63 (80) 141/57 (85) 138/75 (96) Pulse Ox 95 95 95 O2 Delivery Room Air Room Air Room Air Room Air 01/02/18 01/02/18 01/02/18 01/02/18 19:58 20:13 20:28 20:43 Pulse 71 68 67 66 Resp 18 18 18 18 B/P (MAP) 129/95 (106) 63/ 122/60 (80) 120/56 (77) Pulse Ox 95 93 98 90 O2 Delivery Room Air Room Air Room Air 01/02/18 01/02/18 01/02/18 01/02/18 20:58 21:13 21:49 22:49 Pulse 63 66 Resp 18 18 20 18 B/P (MAP) 109/56 (73) 128/69 (88) Pulse Ox 92 94 O2 Delivery Room Air Room Air Room Air Room Air 01/02/18 01/03/18 01/03/18 01/03/18 23:00 03:00 07:00 08:00 Temp 97.5 97.5 97.9 97.5 97.5 97.9 Pulse 67 62 58 Resp 16 16 16 B/P (MAP) 123/66 (85) 123/61 (81) 142/73 (96) Pulse Ox 94 94 97 O2 Delivery Room Air Room Air Room Air Room Air 01/03/18 11:00 Temp 98.6 98.6 Pulse 60 Resp 16 B/P (MAP) 122/68 (86) Pulse Ox 97 O2 Delivery Room Air Intake and Output 01/02/18 01/02/18 01/03/18 15:00 23:00 07:00 Intake Total 20 ml Output Total 1100 ml 1200 ml Balance -1100 ml 20 ml -1200 ml BERNARDO GRUBBS MD Jan 03, 2018 14:52
[2018-01-03 15:00] VITALS: BP 137/65
--- NOTE | 2018-01-03 18:43 | PDOC ---
SURGICAL PROGRESS NOTE Subjective He is without new complaints. No significant foot pain. Vital Signs Vital Signs Date Time Temp Pulse Resp B/P (MAP) Pulse Ox O2 Delivery O2 Flow Rate FiO2 01/03/18 15:00 98.4 68 16 137/65 (89) 95 Room Air 98.4 01/02/18 18:21 10 General: Alert, No acute distress Extremities: Other (Left foot dressing intact, edema around ankle slightly improved) I have reviewed the following Arterial US of left leg showed no significant areas of narrowing. Problem List Problems Medical Problems: (1) Cellulitis Status: Acute (2) Wound of foot Status: Acute Assessment/Plan Left foot cellulitis - reviewed Op note from Ortho Peripheral neuropathy Arterial US showed good arterial flow to the left foot. Would not recommend any arterial intervention at this time. He should have adequate arterial flow to facilitate healing. Please call if other concerns arise. Activity per Ortho team. AP HITCHCOCK MD Jan 03, 2018 18:43
[2018-01-03 19:15] VITALS: BP 122/73
[2018-01-03] MEDS: SENNOSIDES/DOCUSATE 8.6/50MG TABLET. PO SCH (20:17)
[2018-01-03] MEDS: LINEZOLID 600 MG TABLET PO SCH (20:17)
[2018-01-03] MEDS: DOCUSATE SODIUM 100 MG CAPSULE. PO SCH (20:17)
[2018-01-03 23:05] VITALS: BP 119/74
[2018-01-03] MEDS: ENOXAPARIN 40 MG/0.4 ML SYRINGE. SQ SCH (23:12)
[2018-01-04 03:12] VITALS: BP 124/74
[2018-01-04 04:55] LABS: BASO # 0.1 x10^3/uL (0.0-0.2); BASO % 1 % (0-3); EOS # 0.3 x10^3/uL (0.0-0.7); EOS % 5 % (0-3); HEMATOCRIT 34.4 % (39.0-53.0); HEMOGLOBIN 12.2 g/dL (13.0-17.5); LYMPH # 2.3 x10^3/uL (1.0-4.8); LYMPH % 31 % (24-48); MEAN CORPUSCULAR HEMOGLOBIN 32 pg (25-35); MEAN CORPUSCULAR HGB CONC 35 g/dL (31-37); MEAN CORPUSCULAR VOLUME 91 fL (79-100); MONO # 0.6 x10^3/uL (0.0-1.1); MONO % 8 % (0-9); NEUT # 4.1 x10^3uL (1.8-7.7); NEUT % 55 % (31-73); PLATELET COUNT 269 x10^3/uL (140-400); RED BLOOD COUNT 3.79 x10^6/uL (4.30-5.70); RED CELL DISTRIBUTION WIDTH 13.1 % (11.5-14.5); WHITE BLOOD COUNT 7.4 x10^3/uL (4.0-11.0)
[2018-01-04 05:47] LABS: CALCIUM 7.9 mg/dL (8.5-10.1); CREATININE 1.2 mg/dL (0.7-1.3); GFR 59.5
[2018-01-04] MEDS: PIPERACILLIN/TAZOBACTAM 3.375 GM in IV NORMAL SALINE 50ML 50 ML IV SCH ×4 (06:30→23:23)
[2018-01-04 07:00] VITALS: BP 140/62
[2018-01-04] MEDS: LINEZOLID 600 MG TABLET PO SCH ×2 (09:04→20:24)
[2018-01-04] MEDS: SENNOSIDES/DOCUSATE 8.6/50MG TABLET. PO SCH ×2 (09:04→20:25)
[2018-01-04] MEDS: LACTOBACILLUS RHAMNOSUS GG 1 CAPSULE. PO SCH ×2 (09:04→20:25)
[2018-01-04] MEDS: DOCUSATE SODIUM 100 MG CAPSULE. PO SCH ×2 (09:04→20:25)
[2018-01-04] MEDS: POLYETHYLENE GLYCOL 3350 17 GM PACKET. PO SCH (10:00)
[2018-01-04 11:00] VITALS: BP 124/79
--- NOTE | 2018-01-04 11:00 | PDOC ---
Infectious Disease Note Subjective: Subjective Pt feels better today no f/c/n/v/d redness over foot is improving also ROS: ROS Negative except for above. Vital Signs: Vital Signs Vital Signs Date Time Temp Pulse Resp B/P (MAP) Pulse Ox O2 Delivery O2 Flow Rate FiO2 01/04/18 07:00 98.1 65 16 140/62 (88) 96 Room Air 98.1 Physical Exam: PHYSICAL EXAM GENERAL: Alert, oriented x 3 male, eating lunch, in no acute distress, comfortable, cooperative. HEENT: Normocephalic, atraumatic, anicteric. No thrush. NECK: Supple. LUNGS: Clear. HEART: S1, S2. ABDOMEN: Soft. Bowel sounds present. EXTREMITIES: Left foot dressing in place,dry intact, will have wound vac on DERMATOLOGIC: No generalized rash except for left foot changes as above. NEUROLOGIC: Grossly nonfocal. PSYCHIATRIC: Appropriate mood and affect. Medications: Inpatient Meds: Current Medications Medications (Trade) Dose Ordered Sig/Citlalli Start Time Stop Time Status Last Admin Dose Admin Acetaminophen (Tylenol) 650 mg PRN Q6HRS PRN 01/02/18 11:45 Dexamethasone Sodium Phosphate (Decadron) 20 mg STK-MED ONCE 01/02/18 16:29 01/02/18 16:30 DC Docusate Sodium (Colace) 100 mg BID 01/03/18 21:00 01/04/18 09:04 100 MG Enoxaparin Sodium (Lovenox 40mg Syringe) 40 mg Q24H 01/01/18 23:00 01/03/18 23:12 40 MG Fentanyl Citrate (Fentanyl 2ml Vial) 100 mcg STK-MED ONCE 01/02/18 17:48 01/02/18 17:49 DC Labetalol HCl (Normodyne Iv Push) 20 mg PRN Q2HR PRN 01/02/18 15:15 Lactobacillus Rhamnosus (Culturelle) 1 cap BID 01/01/18 21:00 01/04/18 09:04 1 CAP Linezolid (Zyvox) 600 mg BID 01/03/18 21:00 01/04/18 09:04 600 MG Magnesium Hydroxide (Milk Of Magnesia) 2,400 mg PRN Q12HR PRN 01/03/18 11:45 Meclizine HCl (Antivert) 25 mg PRN TID PRN 01/01/18 23:00 Morphine Sulfate (Morphine Sulfate) 2 mg PRN Q2HR PRN 01/02/18 11:45 Ondansetron HCl (Zofran) 4 mg STK-MED ONCE 01/02/18 16:29 01/02/18 16:30 DC Piperacillin Sod/ Tazobactam Sod (Zosyn Per Pharmacy) 1 each PRN DAILY PRN 01/01/18 17:30 Piperacillin Sod/ Tazobactam Sod 3.375 gm/Sodium Chloride 50 ml @ 100 mls/hr Q6HRS 01/02/18 00:00 01/04/18 06:30 100 MLS/HR Polyethylene Glycol (miraLAX PACKET) 17 gm DAILY 01/04/18 10:00 Propofol 20 ml @ As Directed STK-MED ONCE 01/02/18 16:29 01/02/18 16:30 DC Senna/Docusate Sodium (Senna Plus) 1 tab BID 01/03/18 21:00 01/04/18 09:04 1 TAB Sevoflurane (Ultane) 30 ml STK-MED ONCE 01/02/18 18:18 01/02/18 18:19 DC Tramadol HCl (Ultram) 50 mg PRN Q6HRS PRN 01/02/18 11:45 01/02/18 21:49 50 MG Vancomycin HCl (Vanco Per Pharmacy) 1 each PRN DAILY PRN 01/01/18 16:30 01/03/18 10:37 DC 01/03/18 06:18 1 EACH Vancomycin HCl (Vancomycin Trough Level) 1 each 1X ONCE 01/03/18 05:30 01/03/18 05:31 DC 01/03/18 05:30 1 EACH Vancomycin HCl 1.5 gm/Sodium Chloride 500 ml @ 250 mls/hr Q12H 01/02/18 06:00 01/03/18 10:37 DC 01/03/18 06:15 250 MLS/HR Vancomycin HCl 2 gm/Sodium Chloride 500 ml @ 250 mls/hr ONCE ONCE 01/01/18 17:00 01/01/18 18:59 DC 01/01/18 18:17 250 MLS/HR Labs: Lab Laboratory Tests Test 01/04/18 04:00 White Blood Count 7.4 x10^3/uL (4.0-11.0) Red Blood Count 3.79 x10^6/uL (4.30-5.70) Hemoglobin 12.2 g/dL (13.0-17.5) Hematocrit 34.4 % (39.0-53.0) Mean Corpuscular Volume 91 fL (79-100) Mean Corpuscular Hemoglobin 32 pg (25-35) Mean Corpuscular Hemoglobin Concent 35 g/dL (31-37) Red Cell Distribution Width 13.1 % (11.5-14.5) Platelet Count 269 x10^3/uL (140-400) Neutrophils (%) (Auto) 55 % (31-73) Lymphocytes (%) (Auto) 31 % (24-48) Monocytes (%) (Auto) 8 % (0-9) Eosinophils (%) (Auto) 5 % (0-3) Basophils (%) (Auto) 1 % (0-3) Neutrophils # (Auto) 4.1 x10^3uL (1.8-7.7) Lymphocytes # (Auto) 2.3 x10^3/uL (1.0-4.8) Monocytes # (Auto) 0.6 x10^3/uL (0.0-1.1) Eosinophils # (Auto) 0.3 x10^3/uL (0.0-0.7) Basophils # (Auto) 0.1 x10^3/uL (0.0-0.2) Sodium Level 143 mmol/L (136-145) Potassium Level 4.0 mmol/L (3.5-5.1) Chloride Level 109 mmol/L (98-107) Carbon Dioxide Level 28 mmol/L (21-32) Anion Gap 6 (6-14) Blood Urea Nitrogen 15 mg/dL (8-26) Creatinine 1.2 mg/dL (0.7-1.3) Estimated GFR (Cockcroft-Gault) 59.5 Glucose Level 91 mg/dL (70-99) Calcium Level 7.9 mg/dL (8.5-10.1) Micro RUN DATE: 01/02/18 PAGE 1 RUN TIME: 0963 [facility] [address] [place] [address] Oswaldo Harris M.D., Repairer [employer] PATIENT: JG PETERSON ACCT: [id number] LOC: [address] [place] [address] U : [id number] AGE/SX: 72/M ROOM: 404 REG : 01/01/[address]: JG AMADO MD : 1945 BED: 1 DIS : STATUS: ADM IN TLOC: SPEC #: [id number] ANGELINA: 01/02/18 STATUS: RES REQ #: [id number] RECD: 01/02/[address]: JG AMADO MD SOURCE: FOOT ENTR: 01/02/[address]: LAMAR [facility]ERRIOS [facility] ELBERT ROBIN MD, SHAWN P MD ORDERED: UVALDO/KAYLEEN/JULIO Procedure Result ANAEROBIC-AEROBIC CULTURE PENDING ANAEROBIC RES 1 PENDING AEROBIC CULT PENDING AEROBIC RES 1 PENDING GRAM STAIN Final Final report GRAM STAIN RES 1 Final Comment No white blood cells seen. GRAM STAIN RES 2 Final No organisms seen Performed at: - [facility] [address], [place], [place] [id number] Miner: YOLANDA Marinelli MD, Phone: [phone] Objective: Assessment: 1. 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 S/P I AND D WITH no purulence on intraoperative surgical report Cult pending cellulitis improving 2. Dislocation of the third metatarsophalangeal joint. 3. Peripheral neuropathy. 4. Diabetes. 5. History of cancer. Plan: Plan of Care 1. Cont zyvox 2. Cont zosyn 2. Midline as can transition to iv invanz before dc tomorrow 3. Follow up culture and susceptibility results and lab in a.m. 4. Continue supportive care. 5. FU with us in 2 weeks LAMAR BERRIOS MD Jan 04, 2018 11:00
--- NOTE | 2018-01-04 14:31 | PDOC ---
PROGRESS NOTES Chief Complaint Chief Complaint Osteomyelitis left foot s/p i and d 01/02 with associated left foot cellulitis no DM h/o left foot bone infection post i and d HTN constipation plan: id consult, on zosyn, zyvox get ortho consulted, got i and d 01/02 vascular consult as per ID, no intervention labetolol prn for now, if cont high BP, will add po meds pain control wound care add stool softener sw for possible rehab or home Health, possible oysterman iv abx talked to ID today, will do PICC and iv abx for 2 weeks at least History of Present Illness History of Present Illness left foot open wound 1 week got i and d 01/02 ROS: no fever, chills, sob or chest pain Vitals Vitals Vital Signs Date Time Temp Pulse Resp B/P (MAP) Pulse Ox O2 Delivery O2 Flow Rate FiO2 01/04/18 11:00 97.6 58 18 124/79 (94) 95 Nasal Cannula 97.6 Physical Exam Physical Exam GENERAL: Alert, oriented x 3 male, eating lunch, in no acute distress, comfortable, cooperative. HEENT: Normocephalic, atraumatic, anicteric. No thrush. NECK: Supple. LUNGS: Clear. HEART: S1, S2. ABDOMEN: Soft. Bowel sounds present. EXTREMITIES: Left foot dressing in place,dry intact, will have wound vac on DERMATOLOGIC: No generalized rash except for left foot changes as above. NEUROLOGIC: Grossly nonfocal. PSYCHIATRIC: Appropriate mood and affect. General: Alert, No acute distress Heart: Regular rate, Normal S1, Normal S2 Lungs: Clear Abdomen: Normal bowel sounds, Soft Extremities: No cyanosis, Normal pulses Skin: Other (left foot sole 1 open wound, mild tenderness, left foot red mild swelling) Labs LABS Laboratory Tests Test 01/04/18 04:00 White Blood Count 7.4 x10^3/uL (4.0-11.0) Red Blood Count 3.79 x10^6/uL (4.30-5.70) Hemoglobin 12.2 g/dL (13.0-17.5) Hematocrit 34.4 % (39.0-53.0) Mean Corpuscular Volume 91 fL (79-100) Mean Corpuscular Hemoglobin 32 pg (25-35) Mean Corpuscular Hemoglobin Concent 35 g/dL (31-37) Red Cell Distribution Width 13.1 % (11.5-14.5) Platelet Count 269 x10^3/uL (140-400) Neutrophils (%) (Auto) 55 % (31-73) Lymphocytes (%) (Auto) 31 % (24-48) Monocytes (%) (Auto) 8 % (0-9) Eosinophils (%) (Auto) 5 % (0-3) Basophils (%) (Auto) 1 % (0-3) Neutrophils # (Auto) 4.1 x10^3uL (1.8-7.7) Lymphocytes # (Auto) 2.3 x10^3/uL (1.0-4.8) Monocytes # (Auto) 0.6 x10^3/uL (0.0-1.1) Eosinophils # (Auto) 0.3 x10^3/uL (0.0-0.7) Basophils # (Auto) 0.1 x10^3/uL (0.0-0.2) Sodium Level 143 mmol/L (136-145) Potassium Level 4.0 mmol/L (3.5-5.1) Chloride Level 109 mmol/L (98-107) Carbon Dioxide Level 28 mmol/L (21-32) Anion Gap 6 (6-14) Blood Urea Nitrogen 15 mg/dL (8-26) Creatinine 1.2 mg/dL (0.7-1.3) Estimated GFR (Cockcroft-Gault) 59.5 Glucose Level 91 mg/dL (70-99) Calcium Level 7.9 mg/dL (8.5-10.1) Assessment and Plan Assessmemt and Plan Problems Medical Problems: (1) Cellulitis Status: Acute (2) Wound of foot Status: Acute Comment Review of Relevant I have reviewed the following items dat (where applicable) has been applied. Labs Laboratory Tests Test 01/03/18 05:20 01/04/18 04:00 White Blood Count 6.4 x10^3/uL (4.0-11.0) 7.4 x10^3/uL (4.0-11.0) Red Blood Count 4.04 x10^6/uL (4.30-5.70) 3.79 x10^6/uL (4.30-5.70) Hemoglobin 12.7 g/dL (13.0-17.5) 12.2 g/dL (13.0-17.5) Hematocrit 36.9 % (39.0-53.0) 34.4 % (39.0-53.0) Mean Corpuscular Volume 91 fL (79-100) 91 fL (79-100) Mean Corpuscular Hemoglobin 31 pg (25-35) 32 pg (25-35) Mean Corpuscular Hemoglobin Concent 34 g/dL (31-37) 35 g/dL (31-37) Red Cell Distribution Width 13.2 % (11.5-14.5) 13.1 % (11.5-14.5) Platelet Count 273 x10^3/uL (140-400) 269 x10^3/uL (140-400) Neutrophils (%) (Auto) 80 % (31-73) 55 % (31-73) Lymphocytes (%) (Auto) 15 % (24-48) 31 % (24-48) Monocytes (%) (Auto) 5 % (0-9) 8 % (0-9) Eosinophils (%) (Auto) 0 % (0-3) 5 % (0-3) Basophils (%) (Auto) 0 % (0-3) 1 % (0-3) Neutrophils # (Auto) 5.1 x10^3uL (1.8-7.7) 4.1 x10^3uL (1.8-7.7) Lymphocytes # (Auto) 0.9 x10^3/uL (1.0-4.8) 2.3 x10^3/uL (1.0-4.8) Monocytes # (Auto) 0.3 x10^3/uL (0.0-1.1) 0.6 x10^3/uL (0.0-1.1) Eosinophils # (Auto) 0.0 x10^3/uL (0.0-0.7) 0.3 x10^3/uL (0.0-0.7) Basophils # (Auto) 0.0 x10^3/uL (0.0-0.2) 0.1 x10^3/uL (0.0-0.2) Sodium Level 143 mmol/L (136-145) 143 mmol/L (136-145) Potassium Level 4.4 mmol/L (3.5-5.1) 4.0 mmol/L (3.5-5.1) Chloride Level 108 mmol/L (98-107) 109 mmol/L (98-107) Carbon Dioxide Level 26 mmol/L (21-32) 28 mmol/L (21-32) Anion Gap 9 (6-14) 6 (6-14) Blood Urea Nitrogen 17 mg/dL (8-26) 15 mg/dL (8-26) Creatinine 1.0 mg/dL (0.7-1.3) 1.2 mg/dL (0.7-1.3) Estimated GFR (Cockcroft-Gault) 73.5 59.5 Glucose Level 119 mg/dL (70-99) 91 mg/dL (70-99) Calcium Level 8.1 mg/dL (8.5-10.1) 7.9 mg/dL (8.5-10.1) Vancomycin Level Trough 15.5 mcg/mL (10.0-20.0) Vancomycin Last Dose Date 01/02/18 Vancomycin Last Dose Time 1800 Laboratory Tests Test 01/04/18 04:00 White Blood Count 7.4 x10^3/uL (4.0-11.0) Red Blood Count 3.79 x10^6/uL (4.30-5.70) Hemoglobin 12.2 g/dL (13.0-17.5) Hematocrit 34.4 % (39.0-53.0) Mean Corpuscular Volume 91 fL (79-100) Mean Corpuscular Hemoglobin 32 pg (25-35) Mean Corpuscular Hemoglobin Concent 35 g/dL (31-37) Red Cell Distribution Width 13.1 % (11.5-14.5) Platelet Count 269 x10^3/uL (140-400) Neutrophils (%) (Auto) 55 % (31-73) Lymphocytes (%) (Auto) 31 % (24-48) Monocytes (%) (Auto) 8 % (0-9) Eosinophils (%) (Auto) 5 % (0-3) Basophils (%) (Auto) 1 % (0-3) Neutrophils # (Auto) 4.1 x10^3uL (1.8-7.7) Lymphocytes # (Auto) 2.3 x10^3/uL (1.0-4.8) Monocytes # (Auto) 0.6 x10^3/uL (0.0-1.1) Eosinophils # (Auto) 0.3 x10^3/uL (0.0-0.7) Basophils # (Auto) 0.1 x10^3/uL (0.0-0.2) Sodium Level 143 mmol/L (136-145) Potassium Level 4.0 mmol/L (3.5-5.1) Chloride Level 109 mmol/L (98-107) Carbon Dioxide Level 28 mmol/L (21-32) Anion Gap 6 (6-14) Blood Urea Nitrogen 15 mg/dL (8-26) Creatinine 1.2 mg/dL (0.7-1.3) Estimated GFR (Cockcroft-Gault) 59.5 Glucose Level 91 mg/dL (70-99) Calcium Level 7.9 mg/dL (8.5-10.1) Microbiology 01/01/18 Blood Culture - Preliminary, Resulted NO GROWTH AFTER 2 DAYS 01/02/18 Anaerobic/Aerobic Culture, Resulted Pending 01/02/18 Anaerobic Culture Result 1 (EDDA), Resulted Pending 01/02/18 Aerobic Culture, Resulted Pending 01/02/18 Aerobic Culture Result 1 (EDDA), Resulted Pending 01/02/18 Gram Stain - Final, Resulted 01/02/18 Gram Stain Result 1 (EDDA) - Final, Resulted 01/02/18 Gram Stain Result 2 (EDDA) - Final, Resulted Medications Current Medications Vancomycin HCl (Vanco Per Pharmacy) 1 each PRN DAILY PRN MC SEE COMMENTS Last administered on 01/03/18at 06:18; Start 01/01/18 at 16:30; Stop 01/03/18 at 10:37 ; Status DC Vancomycin HCl 2 gm/Sodium Chloride 500 ml @ 250 mls/hr ONCE ONCE IV Last administered on 01/01/18at 18:17; Start 01/01/18 at 17:00; Stop 01/01/18 at 18:59 ; Status DC Ondansetron HCl (Zofran) 4 mg PRN Q8HRS PRN IV NAUSEA/VOMITING; Start 01/01/18 at 17:15; Stop 01/02/18 at 11:37; Status DC Piperacillin Sod/ Tazobactam Sod (Zosyn Per Pharmacy) 1 each PRN DAILY PRN MC SEE COMMENTS; Start 01/01/18 at 17:30 Piperacillin Sod/ Tazobactam Sod 3.375 gm/Sodium Chloride 50 ml @ 100 mls/hr ONCE ONCE IV Last administered on 01/01/18at 17:36; Start 01/01/18 at 17:30; Stop 01/01/18 at 17:59; Status DC Piperacillin Sod/ Tazobactam Sod 3.375 gm/Sodium Chloride 50 ml @ 100 mls/hr Q6HRS IV Last administered on 01/04/18at 13:42; Start 01/02/18 at 00:00 Lactobacillus Rhamnosus (Culturelle) 1 cap BID PO Last administered on at 09:04; Start 01/01/18 at 21:00 Vancomycin HCl 1.5 gm/Sodium Chloride 500 ml @ 250 mls/hr Q12H IV Last administered on 01/03/18at 06:15; Start 01/02/18 at 06:00; Stop 01/03/18 at 10:37 ; Status DC Vancomycin HCl (Vancomycin Trough Level) 1 each 1X ONCE MC Last administered on 01/03/18at 05:30; Start 01/03/18 at 05:30; Stop 01/03/18 at 05:31; Status DC Meclizine HCl (Antivert) 25 mg PRN TID PRN PO DIZZINESS; Start 01/01/18 at 23: 00 Enoxaparin Sodium (Lovenox 40mg Syringe) 40 mg Q24H SQ Last administered on at 23:12; Start 01/01/18 at 23:00 Acetaminophen (Tylenol) 650 mg PRN Q6HRS PRN PO FEVER; Start 01/02/18 at 11:45 Ondansetron HCl (Zofran) 4 mg PRN Q6HRS PRN IV NAUSEA/VOMITING; Start 01/02/18 at 11:45 Morphine Sulfate (Morphine Sulfate) 2 mg PRN Q2HR PRN IV MODERATE TO SEVERE PAIN; Start 01/02/18 at 11:45 Tramadol HCl (Ultram) 50 mg PRN Q6HRS PRN PO MILD TO MODERATE PAIN Last administered on 01/02/18at 21:49; Start 01/02/18 at 11:45 Docusate Sodium (Colace) 100 mg PRN DAILY PRN PO CONSTIPATION; Start 01/02/18 at 11:45 Labetalol HCl (Normodyne Iv Push) 20 mg PRN Q2HR PRN IVP HYPERTENSION, SEE COMMENTS; Start 01/02/18 at 15:15 Dexamethasone Sodium Phosphate (Decadron) 20 mg STK-MED ONCE .ROUTE ; Start at 16:29; Stop 01/02/18 at 16:30; Status DC Ondansetron HCl (Zofran) 4 mg STK-MED ONCE .ROUTE ; Start 01/02/18 at 16:29; Stop 01/02/18 at 16:30; Status DC Propofol 20 ml @ As Directed STK-MED ONCE IV ; Start 01/02/18 at 16:29; Stop at 16:30; Status DC Fentanyl Citrate (Fentanyl 2ml Vial) 100 mcg STK-MED ONCE .ROUTE ; Start at 17:48; Stop 01/02/18 at 17:49; Status DC Sevoflurane (Ultane) 30 ml STK-MED ONCE IH ; Start 01/02/18 at 18:18; Stop 01/02 at 18:19; Status DC Linezolid (Zyvox) 600 mg BID PO Last administered on 01/04/18at 09:04; Start at 21:00 Senna/Docusate Sodium (Senna Plus) 1 tab BID PO Last administered on 01/04/18at 09:04; Start 01/03/18 at 21:00 Docusate Sodium (Colace) 100 mg BID PO Last administered on 01/04/18at 09:04; Start 01/03/18 at 21:00 Magnesium Hydroxide (Milk Of Magnesia) 2,400 mg PRN Q12HR PRN PO CONSTIPATION; Start 01/03/18 at 11:45 Polyethylene Glycol (miraLAX PACKET) 17 gm DAILY PO ; Start 01/04/18 at 10:00 Active Scripts Active Meclizine Hcl 25 Mg Tablet 25 Mg PO PRN TID PRN dizziness Levaquin (Levofloxacin) 500 Mg Tablet 500 Mg PO DAILY Reported No Known Medications Prior To Admisstion (Info) Each 1 Each Vitals/I & O Vital Sign - Last 24 Hours 9/01/03/18 01/03/18 01/03/18 15:00 19:15 20:00 23:05 Temp 98.4 97.3 97.9 98.4 97.3 97.9 Pulse 68 66 62 Resp 18 B/P (MAP) 137/65 (89) 122/73 (89) 119/74 (89) Pulse Ox 95 95 94 O2 Delivery Room Air Room Air Room Air Room Air 01/04/18 01/04/18 01/04/18 03:12 07:00 11:00 Temp 98.1 98.1 97.6 98.1 98.1 97.6 Pulse 60 65 58 Resp 18 B/P (MAP) 124/74 (91) 140/62 (88) 124/79 (94) Pulse Ox 94 96 95 O2 Delivery Room Air Room Air Nasal Cannula Intake and Output 01/03/18 01/03/18 01/04/18 15:00 23:00 07:00 Intake Total 480 ml Output Total 450 ml Balance 30 ml BERNARDO GRUBBS MD Jan 04, 2018 14:31
[2018-01-04 15:00] VITALS: BP 143/87
[2018-01-04 19:00] VITALS: BP 152/79
[2018-01-04 23:00] VITALS: BP 146/76
--- NOTE | 2018-01-04 23:01 | RAD ---
AP portable chest radiograph 01/04/2018 Clinical History: PICC line placement. An AP erect portable digital radiograph of the chest was obtained. A right arm PICC has been placed. The tip of this catheter extends to overlie the superior vena cava. The cardiac silhouette is mildly enlarged. The thoracic aorta is tortuous. Atherosclerotic calcification of the thoracic aorta is seen. No acute pulmonary infiltrate is noted. No pneumothorax or pleural effusion is seen. Degenerative changes are seen involving the thoracic spine and both shoulders. IMPRESSION: Interval placement of a right arm PICC. The tip of this catheter extends to overlie the superior vena cava. Electronically signed by: Collin Glass MD (01/04/2018 10:58 PM) [facility]
[2018-01-04] MEDS: ENOXAPARIN 40 MG/0.4 ML SYRINGE. SQ SCH (23:23)
[2018-01-05 03:00] VITALS: BP 150/76
[2018-01-05 07:00] VITALS: BP 165/72
[2018-01-05] MEDS: LACTOBACILLUS RHAMNOSUS GG 1 CAPSULE. PO SCH ×2 (09:09→20:49)
[2018-01-05] MEDS: LINEZOLID 600 MG TABLET PO SCH ×2 (09:09→20:49)
[2018-01-05] MEDS: POLYETHYLENE GLYCOL 3350 17 GM PACKET. PO SCH (09:09)
[2018-01-05] MEDS: SENNOSIDES/DOCUSATE 8.6/50MG TABLET. PO SCH ×2 (09:09→20:50)
[2018-01-05] MEDS: DOCUSATE SODIUM 100 MG CAPSULE. PO SCH ×2 (09:09→20:50)
[2018-01-05] MEDS: PIPERACILLIN/TAZOBACTAM 3.375 GM in IV NORMAL SALINE 50ML 50 ML IV SCH ×4 (09:10→23:48)
--- NOTE | 2018-01-05 09:52 | PDOC ---
Infectious Disease Note Subjective: Subjective Pt feels better today no f/c/n/v/d redness over foot is improving also ROS: ROS Negative except for above. Vital Signs: Vital Signs Vital Signs Date Time Temp Pulse Resp B/P (MAP) Pulse Ox O2 Delivery O2 Flow Rate FiO2 01/05/18 07:00 98.1 54 16 165/72 (103) 92 Room Air 98.1 Physical Exam: PHYSICAL EXAM GENERAL: Alert, oriented x 3 male, eating lunch, in no acute distress, comfortable, cooperative. HEENT: Normocephalic, atraumatic, anicteric. No thrush. NECK: Supple. LUNGS: Clear. HEART: S1, S2. ABDOMEN: Soft. Bowel sounds present. EXTREMITIES: Left foot dressing in place,dry intact, will have wound vac on DERMATOLOGIC: No generalized rash except for left foot changes as above. NEUROLOGIC: Grossly nonfocal. PSYCHIATRIC: Appropriate mood and affect. Medications: Inpatient Meds: Current Medications Medications (Trade) Dose Ordered Sig/Citlalli Start Time Stop Time Status Last Admin Dose Admin Acetaminophen (Tylenol) 650 mg PRN Q6HRS PRN 01/02/18 11:45 Dexamethasone Sodium Phosphate (Decadron) 20 mg STK-MED ONCE 01/02/18 16:29 01/02/18 16:30 DC Docusate Sodium (Colace) 100 mg BID 01/03/18 21:00 01/05/18 09:09 100 MG Enoxaparin Sodium (Lovenox 40mg Syringe) 40 mg Q24H 01/01/18 23:00 01/04/18 23:23 40 MG Fentanyl Citrate (Fentanyl 2ml Vial) 100 mcg STK-MED ONCE 01/02/18 17:48 01/02/18 17:49 DC Labetalol HCl (Normodyne Iv Push) 20 mg PRN Q2HR PRN 01/02/18 15:15 Lactobacillus Rhamnosus (Culturelle) 1 cap BID 01/01/18 21:00 01/05/18 09:09 1 CAP Linezolid (Zyvox) 600 mg BID 01/03/18 21:00 01/05/18 09:09 600 MG Magnesium Hydroxide (Milk Of Magnesia) 2,400 mg PRN Q12HR PRN 01/03/18 11:45 Meclizine HCl (Antivert) 25 mg PRN TID PRN 01/01/18 23:00 Morphine Sulfate (Morphine Sulfate) 2 mg PRN Q2HR PRN 01/02/18 11:45 Ondansetron HCl (Zofran) 4 mg STK-MED ONCE 01/02/18 16:29 01/02/18 16:30 DC Piperacillin Sod/ Tazobactam Sod (Zosyn Per Pharmacy) 1 each PRN DAILY PRN 01/01/18 17:30 Piperacillin Sod/ Tazobactam Sod 3.375 gm/Sodium Chloride 50 ml @ 100 mls/hr Q6HRS 01/02/18 00:00 01/05/18 09:10 100 MLS/HR Polyethylene Glycol (miraLAX PACKET) 17 gm DAILY 01/04/18 10:00 01/05/18 09:09 17 GM Propofol 20 ml @ As Directed STK-MED ONCE 01/02/18 16:29 01/02/18 16:30 DC Senna/Docusate Sodium (Senna Plus) 1 tab BID 01/03/18 21:00 01/05/18 09:09 1 TAB Sevoflurane (Ultane) 30 ml STK-MED ONCE 01/02/18 18:18 01/02/18 18:19 DC Tramadol HCl (Ultram) 50 mg PRN Q6HRS PRN 01/02/18 11:45 01/02/18 21:49 50 MG Vancomycin HCl (Vanco Per Pharmacy) 1 each PRN DAILY PRN 01/01/18 16:30 01/03/18 10:37 DC 01/03/18 06:18 1 EACH Vancomycin HCl (Vancomycin Trough Level) 1 each 1X ONCE 01/03/18 05:30 01/03/18 05:31 DC 01/03/18 05:30 1 EACH Vancomycin HCl 1.5 gm/Sodium Chloride 500 ml @ 250 mls/hr Q12H 01/02/18 06:00 01/03/18 10:37 DC 01/03/18 06:15 250 MLS/HR Vancomycin HCl 2 gm/Sodium Chloride 500 ml @ 250 mls/hr ONCE ONCE 01/01/18 17:00 01/01/18 18:59 DC 01/01/18 18:17 250 MLS/HR Labs: Micro RUN DATE: 01/04/18 PAGE 1 RUN TIME: 001 [facility] [address] [facility] [place] [address] Oswaldo Harris M.D., [employer]ke Worker PATIENT: JG PTEERSON ACCT: [id number] LOC: [address] [place] [address] U : [id number] AGE/SX: 72/M ROOM: 404 REG : 01/01/[address]: JG AMDAO MD : 1945 BED: 1 DIS : STATUS: ADM IN TLOC: SPEC #: [id number] ANGELINA: 01/02/18 STATUS: RES REQ #: [id number] RECD: 01/02/[address] [facility] [address]: JG AMADO MD SOURCE: FOOT ENTR: 01/03/[address] [facility] [address]: ALEXANDER SALVADOR [facility] LAMAR CAT MD, SAMIR R MD LILLIG, SHAWN P MD MONAHAN, TIMOTHY J MD ORDERED: UVALDO/KAYLEEN/JULIO Procedure Result ANAEROBIC-AEROBIC CULTURE PENDING ANAEROBIC RES 1 PENDING AEROBIC CULT PENDING AEROBIC RES 1 PENDING GRAM STAIN Final Final report GRAM STAIN RES 1 Final Comment No white blood cells seen. GRAM STAIN RES 2 Final No organisms seen Performed at: - [facility] [address] [facility] [address], [place], [place] [id number] Mail Room Clerk: YOLANDA Marinelli MD, Phone: [phone] Objective: Assessment: 1. Left foot cellulitis with left plantar wound with purulence at outside scout's office with history of left fourth toe osteomyelitis, status post surgery with erosion of the distal tuft of the third distal phalanx with possible osteomyelitis. S/P I AND D WITH no purulence or evidence of ongoing OM per Ortho Cult pending at this time Lt foot cellulitis improving 2. Dislocation of the third metatarsophalangeal joint. 3. Peripheral neuropathy. 4. Diabetes. 5. History of cancer. 6. H/O LTKA stable Plan: Plan of Care Cont zyvox and zosyn Transition to zyvox and invanz prior to scientific laboratory supervisor to f/u on osh cultures from DR Carla HAYDEN as cult here are neg Continue local care per ortho LAMAR BERRIOS MD Jan 05, 2018 09:52
[2018-01-05 11:00] VITALS: BP 148/74
--- NOTE | 2018-01-05 13:05 | PDOC ---
PROGRESS NOTES Chief Complaint Chief Complaint Osteomyelitis left foot s/p i and d 01/02 with associated left foot cellulitis no DM h/o left foot bone infection post i and d HTN constipation plan: id consult, on zosyn, zyvox get ortho consulted, got i and d 01/02 vascular consult as per ID, no intervention pain control wound care add stool softener talked to ID today, will do PICC and iv abx for 2 weeks at least try toget records or cx result from tool crib supervisor pt saw before admission, RN fu resume lisinopril sw for possible rehab or home Health, possible long-term iv abx , on Sunday History of Present Illness History of Present Illness left foot open wound 1 week got i and d 01/02 ROS: no fever, chills, sob or chest pain takes lisinopril 20mg daily at home Vitals Vitals Vital Signs Date Time Temp Pulse Resp B/P (MAP) Pulse Ox O2 Delivery O2 Flow Rate FiO2 01/05/18 11:00 98.1 66 16 148/74 (98) 99 Room Air 98.1 Physical Exam Physical Exam GENERAL: Alert, oriented x 3 male, eating lunch, in no acute distress, comfortable, cooperative. HEENT: Normocephalic, atraumatic, anicteric. No thrush. NECK: Supple. LUNGS: Clear. HEART: S1, S2. ABDOMEN: Soft. Bowel sounds present. EXTREMITIES: Left foot dressing in place,dry intact, will have wound vac on DERMATOLOGIC: No generalized rash except for left foot changes as above. NEUROLOGIC: Grossly nonfocal. PSYCHIATRIC: Appropriate mood and affect. General: Alert, No acute distress Heart: Regular rate, Normal S1, Normal S2 Lungs: Clear Abdomen: Normal bowel sounds, Soft Extremities: No cyanosis, Normal pulses Skin: Other (left foot sole 1 open wound, mild tenderness, left foot red mild swelling) Assessment and Plan Assessmemt and Plan Problems Medical Problems: (1) Cellulitis Status: Acute (2) Wound of foot Status: Acute Comment Review of Relevant I have reviewed the following items dat (where applicable) has been applied. Labs Laboratory Tests Test 01/04/18 04:00 White Blood Count 7.4 x10^3/uL (4.0-11.0) Red Blood Count 3.79 x10^6/uL (4.30-5.70) Hemoglobin 12.2 g/dL (13.0-17.5) Hematocrit 34.4 % (39.0-53.0) Mean Corpuscular Volume 91 fL (79-100) Mean Corpuscular Hemoglobin 32 pg (25-35) Mean Corpuscular Hemoglobin Concent 35 g/dL (31-37) Red Cell Distribution Width 13.1 % (11.5-14.5) Platelet Count 269 x10^3/uL (140-400) Neutrophils (%) (Auto) 55 % (31-73) Lymphocytes (%) (Auto) 31 % (24-48) Monocytes (%) (Auto) 8 % (0-9) Eosinophils (%) (Auto) 5 % (0-3) Basophils (%) (Auto) 1 % (0-3) Neutrophils # (Auto) 4.1 x10^3uL (1.8-7.7) Lymphocytes # (Auto) 2.3 x10^3/uL (1.0-4.8) Monocytes # (Auto) 0.6 x10^3/uL (0.0-1.1) Eosinophils # (Auto) 0.3 x10^3/uL (0.0-0.7) Basophils # (Auto) 0.1 x10^3/uL (0.0-0.2) Sodium Level 143 mmol/L (136-145) Potassium Level 4.0 mmol/L (3.5-5.1) Chloride Level 109 mmol/L (98-107) Carbon Dioxide Level 28 mmol/L (21-32) Anion Gap 6 (6-14) Blood Urea Nitrogen 15 mg/dL (8-26) Creatinine 1.2 mg/dL (0.7-1.3) Estimated GFR (Cockcroft-Gault) 59.5 Glucose Level 91 mg/dL (70-99) Calcium Level 7.9 mg/dL (8.5-10.1) Microbiology 01/01/18 Blood Culture - Preliminary, Resulted NO GROWTH AFTER 3 DAYS 01/02/18 Anaerobic/Aerobic Culture, Resulted Pending 01/02/18 Anaerobic Culture Result 1 (EDDA), Resulted Pending 01/02/18 Aerobic Culture, Resulted Pending 01/02/18 Aerobic Culture Result 1 (EDDA), Resulted Pending 01/02/18 Gram Stain - Final, Resulted 01/02/18 Gram Stain Result 1 (EDDA) - Final, Resulted 01/02/18 Gram Stain Result 2 (EDDA) - Final, Resulted Medications Current Medications Vancomycin HCl (Vanco Per Pharmacy) 1 each PRN DAILY PRN MC SEE COMMENTS Last administered on 01/03/18at 06:18; Start 01/01/18 at 16:30; Stop 01/03/18 at 10:37 ; Status DC Vancomycin HCl 2 gm/Sodium Chloride 500 ml @ 250 mls/hr ONCE ONCE IV Last administered on 01/01/18at 18:17; Start 01/01/18 at 17:00; Stop 01/01/18 at 18:59 ; Status DC Ondansetron HCl (Zofran) 4 mg PRN Q8HRS PRN IV NAUSEA/VOMITING; Start 01/01/18 at 17:15; Stop 01/02/18 at 11:37; Status DC Piperacillin Sod/ Tazobactam Sod (Zosyn Per Pharmacy) 1 each PRN DAILY PRN MC SEE COMMENTS; Start 01/01/18 at 17:30 Piperacillin Sod/ Tazobactam Sod 3.375 gm/Sodium Chloride 50 ml @ 100 mls/hr ONCE ONCE IV Last administered on 01/01/18at 17:36; Start 01/01/18 at 17:30; Stop 01/01/18 at 17:59; Status DC Piperacillin Sod/ Tazobactam Sod 3.375 gm/Sodium Chloride 50 ml @ 100 mls/hr Q6HRS IV Last administered on 01/05/18at 09:10; Start 01/02/18 at 00:00 Lactobacillus Rhamnosus (Culturelle) 1 cap BID PO Last administered on at 09:09; Start 01/01/18 at 21:00 Vancomycin HCl 1.5 gm/Sodium Chloride 500 ml @ 250 mls/hr Q12H IV Last administered on 01/03/18at 06:15; Start 01/02/18 at 06:00; Stop 01/03/18 at 10:37 ; Status DC Vancomycin HCl (Vancomycin Trough Level) 1 each 1X ONCE MC Last administered on 01/03/18at 05:30; Start 01/03/18 at 05:30; Stop 01/03/18 at 05:31; Status DC Meclizine HCl (Antivert) 25 mg PRN TID PRN PO DIZZINESS; Start 01/01/18 at 23: 00 Enoxaparin Sodium (Lovenox 40mg Syringe) 40 mg Q24H SQ Last administered on at 23:23; Start 01/01/18 at 23:00 Acetaminophen (Tylenol) 650 mg PRN Q6HRS PRN PO FEVER; Start 01/02/18 at 11:45 Ondansetron HCl (Zofran) 4 mg PRN Q6HRS PRN IV NAUSEA/VOMITING; Start 01/02/18 at 11:45 Morphine Sulfate (Morphine Sulfate) 2 mg PRN Q2HR PRN IV MODERATE TO SEVERE PAIN; Start 01/02/18 at 11:45 Tramadol HCl (Ultram) 50 mg PRN Q6HRS PRN PO MILD TO MODERATE PAIN Last administered on 01/02/18at 21:49; Start 01/02/18 at 11:45 Docusate Sodium (Colace) 100 mg PRN DAILY PRN PO HARD STOOLS; Start 01/02/18 at 11:45 Labetalol HCl (Normodyne Iv Push) 20 mg PRN Q2HR PRN IVP HYPERTENSION, SEE COMMENTS; Start 01/02/18 at 15:15 Dexamethasone Sodium Phosphate (Decadron) 20 mg STK-MED ONCE .ROUTE ; Start at 16:29; Stop 01/02/18 at 16:30; Status DC Ondansetron HCl (Zofran) 4 mg STK-MED ONCE .ROUTE ; Start 01/02/18 at 16:29; Stop 01/02/18 at 16:30; Status DC Propofol 20 ml @ As Directed STK-MED ONCE IV ; Start 01/02/18 at 16:29; Stop at 16:30; Status DC Fentanyl Citrate (Fentanyl 2ml Vial) 100 mcg STK-MED ONCE .ROUTE ; Start at 17:48; Stop 01/02/18 at 17:49; Status DC Sevoflurane (Ultane) 30 ml STK-MED ONCE IH ; Start 01/02/18 at 18:18; Stop 01/02 at 18:19; Status DC Linezolid (Zyvox) 600 mg BID PO Last administered on 01/05/18at 09:09; Start at 21:00 Senna/Docusate Sodium (Senna Plus) 1 tab BID PO Last administered on 01/05/18at 09:09; Start 01/03/18 at 21:00 Docusate Sodium (Colace) 100 mg BID PO Last administered on 01/05/18at 09:09; Start 01/03/18 at 21:00 Magnesium Hydroxide (Milk Of Magnesia) 2,400 mg PRN Q12HR PRN PO CONSTIPATION; Start 01/03/18 at 11:45 Polyethylene Glycol (miraLAX PACKET) 17 gm DAILY PO Last administered on at 09:09; Start 01/04/18 at 10:00 Lisinopril (Prinivil) 20 mg DAILY PO ; Start 01/05/18 at 11:00 Active Scripts Active Meclizine Hcl 25 Mg Tablet 25 Mg PO PRN TID PRN dizziness Levaquin (Levofloxacin) 500 Mg Tablet 500 Mg PO DAILY Reported No Known Medications Prior To Admisstion (Info) Each 1 Each Vitals/I & O Vital Sign - Last 24 Hours 01/04/18 01/04/18 01/04/18 01/04/18 15:00 19:00 19:45 23:00 Temp 98.1 97.7 97.9 98.1 97.7 97.9 Pulse 61 67 56 Resp 18 14 14 B/P (MAP) 143/87 (105) 152/79 (103) 146/76 (99) Pulse Ox 95 97 94 O2 Delivery Room Air Room Air Room Air Room Air 01/05/18 01/05/18 01/05/18 03:00 07:00 11:00 Temp 98.1 98.1 98.1 98.1 98.1 98.1 Pulse 62 54 66 Resp 14 16 16 B/P (MAP) 150/76 (100) 165/72 (103) 148/74 (98) Pulse Ox 97 92 99 O2 Delivery Room Air Room Air Room Air Intake and Output 01/04/18 01/04/18 01/05/18 15:00 23:00 07:00 Intake Total 50 ml Output Total 1450 ml Balance -1450 ml 50 ml BERNARDO GRUBBS MD Jan 05, 2018 13:05
[2018-01-05] MEDS: LISINOPRIL 20 MG TABLET PO SCH (14:39)
[2018-01-05 15:18] VITALS: BP 143/75
[2018-01-05 19:00] VITALS: BP 147/78
[2018-01-05 23:00] VITALS: BP 130/73
[2018-01-05] MEDS: ENOXAPARIN 40 MG/0.4 ML SYRINGE. SQ SCH (23:48)
[2018-01-06 03:00] VITALS: BP 127/75
[2018-01-06 04:55] LABS: BASO # 0.1 x10^3/uL (0.0-0.2); BASO % 1 % (0-3); EOS # 0.5 x10^3/uL (0.0-0.7); EOS % 8 % (0-3); HEMATOCRIT 38.3 % (39.0-53.0); HEMOGLOBIN 13.5 g/dL (13.0-17.5); LYMPH # 1.7 x10^3/uL (1.0-4.8); LYMPH % 25 % (24-48); MEAN CORPUSCULAR HEMOGLOBIN 32 pg (25-35); MEAN CORPUSCULAR HGB CONC 35 g/dL (31-37); MEAN CORPUSCULAR VOLUME 91 fL (79-100); MONO # 0.7 x10^3/uL (0.0-1.1); MONO % 9 % (0-9); NEUT % 57 % (31-73); PLATELET COUNT 306 x10^3/uL (140-400); RED BLOOD COUNT 4.22 x10^6/uL (4.30-5.70); RED CELL DISTRIBUTION WIDTH 13.4 % (11.5-14.5); WHITE BLOOD COUNT 6.9 x10^3/uL (4.0-11.0)
[2018-01-06 05:26] LABS: CALCIUM 8.2 mg/dL (8.5-10.1); CREATININE 1.1 mg/dL (0.7-1.3); GFR 65.8; POTASSIUM 3.8 mmol/L (3.5-5.1)
[2018-01-06] MEDS: PIPERACILLIN/TAZOBACTAM 3.375 GM in IV NORMAL SALINE 50ML 50 ML IV SCH ×3 (06:21→13:38)
[2018-01-06 07:00] VITALS: BP 126/72
[2018-01-06] MEDS: DOCUSATE SODIUM 100 MG CAPSULE. PO SCH ×2 (09:00→21:00)
--- NOTE | 2018-01-06 09:41 | PDOC ---
Infectious Disease Note Subjective: Subjective Pt feels better today no f/c/n/v/d redness over foot is improving also ROS: ROS Negative except for above. Vital Signs: Vital Signs Vital Signs Date Time Temp Pulse Resp B/P (MAP) Pulse Ox O2 Delivery O2 Flow Rate FiO2 01/06/18 03:00 97.8 60 18 127/75 (92) 92 Room Air 97.8 01/05/18 08:00 10.0 Physical Exam: PHYSICAL EXAM GENERAL: Alert, oriented x 3 male, eating lunch, in no acute distress, comfortable, cooperative. HEENT: Normocephalic, atraumatic, anicteric. No thrush. NECK: Supple. LUNGS: Clear. HEART: S1, S2. ABDOMEN: Soft. Bowel sounds present. EXTREMITIES: Left foot dressing in place,dry intact, will have wound vac on DERMATOLOGIC: No generalized rash except for left foot changes as above. NEUROLOGIC: Grossly nonfocal. PSYCHIATRIC: Appropriate mood and affect. Medications: Inpatient Meds: Current Medications Medications (Trade) Dose Ordered Sig/Citlalli Start Time Stop Time Status Last Admin Dose Admin Acetaminophen (Tylenol) 650 mg PRN Q6HRS PRN 01/02/18 11:45 Dexamethasone Sodium Phosphate (Decadron) 20 mg STK-MED ONCE 01/02/18 16:29 01/02/18 16:30 DC Docusate Sodium (Colace) 100 mg BID 01/03/18 21:00 01/05/18 09:09 100 MG Enoxaparin Sodium (Lovenox 40mg Syringe) 40 mg Q24H 01/01/18 23:00 01/05/18 23:48 40 MG Fentanyl Citrate (Fentanyl 2ml Vial) 100 mcg STK-MED ONCE 01/02/18 17:48 01/02/18 17:49 DC Labetalol HCl (Normodyne Iv Push) 20 mg PRN Q2HR PRN 01/02/18 15:15 Lactobacillus Rhamnosus (Culturelle) 1 cap BID 01/01/18 21:00 01/05/18 20:49 1 CAP Linezolid (Zyvox) 600 mg BID 01/03/18 21:00 01/05/18 20:49 600 MG Lisinopril (Prinivil) 20 mg DAILY 01/05/18 11:00 01/05/18 14:39 20 MG Magnesium Hydroxide (Milk Of Magnesia) 2,400 mg PRN Q12HR PRN 01/03/18 11:45 Meclizine HCl (Antivert) 25 mg PRN TID PRN 01/01/18 23:00 Morphine Sulfate (Morphine Sulfate) 2 mg PRN Q2HR PRN 01/02/18 11:45 Ondansetron HCl (Zofran) 4 mg STK-MED ONCE 01/02/18 16:29 01/02/18 16:30 DC Piperacillin Sod/ Tazobactam Sod (Zosyn Per Pharmacy) 1 each PRN DAILY PRN 01/01/18 17:30 Piperacillin Sod/ Tazobactam Sod 3.375 gm/Sodium Chloride 50 ml @ 100 mls/hr Q6HRS 01/02/18 00:00 01/06/18 06:21 100 MLS/HR Polyethylene Glycol (miraLAX PACKET) 17 gm DAILY 01/04/18 10:00 01/05/18 09:09 17 GM Propofol 20 ml @ As Directed STK-MED ONCE 01/02/18 16:29 01/02/18 16:30 DC Senna/Docusate Sodium (Senna Plus) 1 tab BID 01/03/18 21:00 01/05/18 09:09 1 TAB Sevoflurane (Ultane) 30 ml STK-MED ONCE 01/02/18 18:18 01/02/18 18:19 DC Tramadol HCl (Ultram) 50 mg PRN Q6HRS PRN 01/02/18 11:45 01/02/18 21:49 50 MG Vancomycin HCl (Vanco Per Pharmacy) 1 each PRN DAILY PRN 01/01/18 16:30 01/03/18 10:37 DC 01/03/18 06:18 1 EACH Vancomycin HCl (Vancomycin Trough Level) 1 each 1X ONCE 01/03/18 05:30 01/03/18 05:31 DC 01/03/18 05:30 1 EACH Vancomycin HCl 1.5 gm/Sodium Chloride 500 ml @ 250 mls/hr Q12H 01/02/18 06:00 01/03/18 10:37 DC 01/03/18 06:15 250 MLS/HR Vancomycin HCl 2 gm/Sodium Chloride 500 ml @ 250 mls/hr ONCE ONCE 01/01/18 17:00 01/01/18 18:59 DC 01/01/18 18:17 250 MLS/HR Labs: Lab Laboratory Tests Test 01/06/18 04:15 White Blood Count 6.9 x10^3/uL (4.0-11.0) Red Blood Count 4.22 x10^6/uL (4.30-5.70) Hemoglobin 13.5 g/dL (13.0-17.5) Hematocrit 38.3 % (39.0-53.0) Mean Corpuscular Volume 91 fL (79-100) Mean Corpuscular Hemoglobin 32 pg (25-35) Mean Corpuscular Hemoglobin Concent 35 g/dL (31-37) Red Cell Distribution Width 13.4 % (11.5-14.5) Platelet Count 306 x10^3/uL (140-400) Neutrophils (%) (Auto) 57 % (31-73) Lymphocytes (%) (Auto) 25 % (24-48) Monocytes (%) (Auto) 9 % (0-9) Eosinophils (%) (Auto) 8 % (0-3) Basophils (%) (Auto) 1 % (0-3) Neutrophils # (Auto) 4.0 x10^3uL (1.8-7.7) Lymphocytes # (Auto) 1.7 x10^3/uL (1.0-4.8) Monocytes # (Auto) 0.7 x10^3/uL (0.0-1.1) Eosinophils # (Auto) 0.5 x10^3/uL (0.0-0.7) Basophils # (Auto) 0.1 x10^3/uL (0.0-0.2) Sodium Level 142 mmol/L (136-145) Potassium Level 3.8 mmol/L (3.5-5.1) Chloride Level 107 mmol/L (98-107) Carbon Dioxide Level 26 mmol/L (21-32) Anion Gap 9 (6-14) Blood Urea Nitrogen 13 mg/dL (8-26) Creatinine 1.1 mg/dL (0.7-1.3) Estimated GFR (Cockcroft-Gault) 65.8 Glucose Level 91 mg/dL (70-99) Calcium Level 8.2 mg/dL (8.5-10.1) Micro RUN DATE: 01/05/18 PAGE 1 RUN TIME: 1316 [facility] [address] [facility] [place] [address] Oswaldo Harris M.D., [employer] PATIENT: JG PETERSON ACCT: [id number] LOC: [address] [place] [address] U : [id number] AGE/SX: 72/M ROOM: [facility] REG : 01/01/[address]: JG AMADO MD : 1945 BED: 1 DIS : STATUS: ADM IN TLOC: SPEC #: [id number] ANGELINA: 01/02/18 STATUS: RES REQ #: [id number] RECD: 01/02/[address]: JG AMADO MD SOURCE: FOOT ENTR: 01/02/[address]: LAMAR [facility]ERRIOS [facility] ELBERT BERRIOS MD, SHAWN P MD ORDERED: UVALDO/KAYLEEN/JULIO Procedure Result ANAEROBIC-AEROBIC CULTURE Preliminary Preliminary report ANAEROBIC RES 1 Preliminary Comment No anaerobes recovered in 24 hours. AEROBIC CULT Final Final report AEROBIC RES 1 Final Comment No growth in 56 - 72 hours. GRAM STAIN Final Final report GRAM STAIN RES 1 Final Comment No white blood cells seen. GRAM STAIN RES 2 Final No organisms seen Performed at: [facility] [address] [facility] [address], [place], [place] [id number] Handle Sander Operator: YOLANDA Marinelli MD, Phone: [phone] RUN DATE: 01/05/18 PAGE 1 RUN TIME: 1810 [facility] [address] [place] [address] Oswaldo Harris M.D., [employer] PATIENT: KRISTENJG Gomez ACCT: [id number] LOC: [address] [place] [address] U : [id number] AGE/SX: 72/M ROOM: 404 REG : 01/01/[address]: JG AMADO MD : 1945 BED: 1 DIS : STATUS: ADM IN TLOC: SPEC #: [id number] ANGELINA: 01/02/18 STATUS: RES REQ #: [id number] RECD: 01/02/18 [facility] DR: JG AMADO MD SOURCE: FOOT ENTR: 01/03/[address] [facility] [address]: ALEXANDER SALVADOR MD [facility]: LMAAR CAT MD, SAMIR R MD LILLIG, SHAWN P MD MONAHAN, TIMOTHY J MD ORDERED: ANAER/AEROB/GS Procedure Result ANAEROBIC-AEROBIC CULTURE PENDING ANAEROBIC RES 1 PENDING AEROBIC CULT Preliminary Preliminary report AEROBIC RES 1 Preliminary Gram negative rods 1+ GRAM STAIN Final Final report GRAM STAIN RES 1 Final Comment No white blood cells seen. GRAM STAIN RES 2 Final No organisms seen Performed at: [facility], [place], [place] [id number] Handle Sander Operator: YOLANDA Marinelli MD, Phone: [phone] Objective: Assessment: 1. Left foot cellulitis with left plantar wound with purulence at outside team leader surgery's office with history of left fourth toe osteomyelitis, status post surgery with erosion of the distal tuft of the third distal phalanx with possible osteomyelitis. S/P I AND D WITH no purulence or evidence of ongoing OM per Ortho Cult pending GNR ID and EDDA pending Lt foot cellulitis improving 2. Dislocation of the third metatarsophalangeal joint. 3. Peripheral neuropathy. 4. Diabetes. 5. History of cancer. 6. H/O LTKA stable Plan: Plan of Care Cont zyvox and zosyn FU GNR results will modify antibiotics per ID and EDDA results Continue local care per ortho LAMAR BERRIOS MD Jan 06, 2018 09:41
[2018-01-06] MEDS: POLYETHYLENE GLYCOL 3350 17 GM PACKET. PO SCH (10:34)
[2018-01-06] MEDS: SENNOSIDES/DOCUSATE 8.6/50MG TABLET. PO SCH ×2 (10:35→21:00)
[2018-01-06] MEDS: LACTOBACILLUS RHAMNOSUS GG 1 CAPSULE. PO SCH ×2 (10:35→21:43)
[2018-01-06] MEDS: LISINOPRIL 20 MG TABLET PO SCH (10:35)
[2018-01-06] MEDS: LINEZOLID 600 MG TABLET PO SCH ×2 (10:36→21:42)
[2018-01-06 11:00] VITALS: BP 154/97
--- NOTE | 2018-01-06 14:08 | PDOC ---
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 HEENT: Normocephalic, atraumatic, anicteric. No thrush. NECK: Supple. LUNGS: Clear. HEART: S1, S2. ABDOMEN: Soft. Bowel sounds present. EXTREMITIES: Left foot dressing in place,dry intact, will have wound vac on DERMATOLOGIC: No generalized rash except for left foot changes as above. NEUROLOGIC: Grossly nonfocal. PSYCHIATRIC: Appropriate mood and affect. General: Alert, No acute distress Heart: Regular rate, Normal S1, Normal S2 Lungs: Clear Abdomen: Normal bowel sounds, Soft Extremities: No cyanosis, Normal pulses Skin: Other (left foot sole 1 open wound, mild tenderness, left foot red mild swelling) Labs LABS Laboratory Tests Test 01/06/18 04:15 White Blood Count 6.9 x10^3/uL (4.0-11.0) Red Blood Count 4.22 x10^6/uL (4.30-5.70) Hemoglobin 13.5 g/dL (13.0-17.5) Hematocrit 38.3 % (39.0-53.0) Mean Corpuscular Volume 91 fL (79-100) Mean Corpuscular Hemoglobin 32 pg (25-35) Mean Corpuscular Hemoglobin Concent 35 g/dL (31-37) Red Cell Distribution Width 13.4 % (11.5-14.5) Platelet Count 306 x10^3/uL (140-400) Neutrophils (%) (Auto) 57 % (31-73) Lymphocytes (%) (Auto) 25 % (24-48) Monocytes (%) (Auto) 9 % (0-9) Eosinophils (%) (Auto) 8 % (0-3) Basophils (%) (Auto) 1 % (0-3) Neutrophils # (Auto) 4.0 x10^3uL (1.8-7.7) Lymphocytes # (Auto) 1.7 x10^3/uL (1.0-4.8) Monocytes # (Auto) 0.7 x10^3/uL (0.0-1.1) Eosinophils # (Auto) 0.5 x10^3/uL (0.0-0.7) Basophils # (Auto) 0.1 x10^3/uL (0.0-0.2) Sodium Level 142 mmol/L (136-145) Potassium Level 3.8 mmol/L (3.5-5.1) Chloride Level 107 mmol/L (98-107) Carbon Dioxide Level 26 mmol/L (21-32) Anion Gap 9 (6-14) Blood Urea Nitrogen 13 mg/dL (8-26) Creatinine 1.1 mg/dL (0.7-1.3) Estimated GFR (Cockcroft-Gault) 65.8 Glucose Level 91 mg/dL (70-99) Calcium Level 8.2 mg/dL (8.5-10.1) Assessment and Plan Assessmemt and Plan Problems Medical Problems: (1) Cellulitis Status: Acute (2) Wound of foot Status: Acute Comment Review of Relevant I have reviewed the following items dat (where applicable) has been applied. Labs Laboratory Tests Test 01/06/18 04:15 White Blood Count 6.9 x10^3/uL (4.0-11.0) Red Blood Count 4.22 x10^6/uL (4.30-5.70) Hemoglobin 13.5 g/dL (13.0-17.5) Hematocrit 38.3 % (39.0-53.0) Mean Corpuscular Volume 91 fL (79-100) Mean Corpuscular Hemoglobin 32 pg (25-35) Mean Corpuscular Hemoglobin Concent 35 g/dL (31-37) Red Cell Distribution Width 13.4 % (11.5-14.5) Platelet Count 306 x10^3/uL (140-400) Neutrophils (%) (Auto) 57 % (31-73) Lymphocytes (%) (Auto) 25 % (24-48) Monocytes (%) (Auto) 9 % (0-9) Eosinophils (%) (Auto) 8 % (0-3) Basophils (%) (Auto) 1 % (0-3) Neutrophils # (Auto) 4.0 x10^3uL (1.8-7.7) Lymphocytes # (Auto) 1.7 x10^3/uL (1.0-4.8) Monocytes # (Auto) 0.7 x10^3/uL (0.0-1.1) Eosinophils # (Auto) 0.5 x10^3/uL (0.0-0.7) Basophils # (Auto) 0.1 x10^3/uL (0.0-0.2) Sodium Level 142 mmol/L (136-145) Potassium Level 3.8 mmol/L (3.5-5.1) Chloride Level 107 mmol/L (98-107) Carbon Dioxide Level 26 mmol/L (21-32) Anion Gap 9 (6-14) Blood Urea Nitrogen 13 mg/dL (8-26) Creatinine 1.1 mg/dL (0.7-1.3) Estimated GFR (Cockcroft-Gault) 65.8 Glucose Level 91 mg/dL (70-99) Calcium Level 8.2 mg/dL (8.5-10.1) Laboratory Tests Test 01/06/18 04:15 White Blood Count 6.9 x10^3/uL (4.0-11.0) Red Blood Count 4.22 x10^6/uL (4.30-5.70) Hemoglobin 13.5 g/dL (13.0-17.5) Hematocrit 38.3 % (39.0-53.0) Mean Corpuscular Volume 91 fL (79-100) Mean Corpuscular Hemoglobin 32 pg (25-35) Mean Corpuscular Hemoglobin Concent 35 g/dL (31-37) Red Cell Distribution Width 13.4 % (11.5-14.5) Platelet Count 306 x10^3/uL (140-400) Neutrophils (%) (Auto) 57 % (31-73) Lymphocytes (%) (Auto) 25 % (24-48) Monocytes (%) (Auto) 9 % (0-9) Eosinophils (%) (Auto) 8 % (0-3) Basophils (%) (Auto) 1 % (0-3) Neutrophils # (Auto) 4.0 x10^3uL (1.8-7.7) Lymphocytes # (Auto) 1.7 x10^3/uL (1.0-4.8) Monocytes # (Auto) 0.7 x10^3/uL (0.0-1.1) Eosinophils # (Auto) 0.5 x10^3/uL (0.0-0.7) Basophils # (Auto) 0.1 x10^3/uL (0.0-0.2) Sodium Level 142 mmol/L (136-145) Potassium Level 3.8 mmol/L (3.5-5.1) Chloride Level 107 mmol/L (98-107) Carbon Dioxide Level 26 mmol/L (21-32) Anion Gap 9 (6-14) Blood Urea Nitrogen 13 mg/dL (8-26) Creatinine 1.1 mg/dL (0.7-1.3) Estimated GFR (Cockcroft-Gault) 65.8 Glucose Level 91 mg/dL (70-99) Calcium Level 8.2 mg/dL (8.5-10.1) Microbiology 01/01/18 Blood Culture - Preliminary, Resulted NO GROWTH AFTER 4 DAYS 01/02/18 Anaerobic/Aerobic Culture, Resulted Pending 01/02/18 Anaerobic Culture Result 1 (EDDA), Resulted Pending 01/02/18 Aerobic Culture - Preliminary, Resulted 01/02/18 Aerobic Culture Result 1 (EDDA) - Preliminary, Resulted 01/02/18 Gram Stain - Final, Resulted 01/02/18 Gram Stain Result 1 (EDDA) - Final, Resulted 01/02/18 Gram Stain Result 2 (EDDA) - Final, Resulted Medications Current Medications Vancomycin HCl (Vanco Per Pharmacy) 1 each PRN DAILY PRN MC SEE COMMENTS Last administered on 01/03/18at 06:18; Start 01/01/18 at 16:30; Stop 01/03/18 at 10:37 ; Status DC Vancomycin HCl 2 gm/Sodium Chloride 500 ml @ 250 mls/hr ONCE ONCE IV Last administered on 01/01/18at 18:17; Start 01/01/18 at 17:00; Stop 01/01/18 at 18:59 ; Status DC Ondansetron HCl (Zofran) 4 mg PRN Q8HRS PRN IV NAUSEA/VOMITING; Start 01/01/18 at 17:15; Stop 01/02/18 at 11:37; Status DC Piperacillin Sod/ Tazobactam Sod (Zosyn Per Pharmacy) 1 each PRN DAILY PRN MC SEE COMMENTS; Start 01/01/18 at 17:30 Piperacillin Sod/ Tazobactam Sod 3.375 gm/Sodium Chloride 50 ml @ 100 mls/hr ONCE ONCE IV Last administered on 01/01/18at 17:36; Start 01/01/18 at 17:30; Stop 01/01/18 at 17:59; Status DC Piperacillin Sod/ Tazobactam Sod 3.375 gm/Sodium Chloride 50 ml @ 100 mls/hr Q6HRS IV Last administered on 01/06/18at 13:38; Start 01/02/18 at 00:00 Lactobacillus Rhamnosus (Culturelle) 1 cap BID PO Last administered on at 10:35; Start 01/01/18 at 21:00 Vancomycin HCl 1.5 gm/Sodium Chloride 500 ml @ 250 mls/hr Q12H IV Last administered on 01/03/18at 06:15; Start 01/02/18 at 06:00; Stop 01/03/18 at 10:37 ; Status DC Vancomycin HCl (Vancomycin Trough Level) 1 each 1X ONCE MC Last administered on 01/03/18at 05:30; Start 01/03/18 at 05:30; Stop 01/03/18 at 05:31; Status DC Meclizine HCl (Antivert) 25 mg PRN TID PRN PO DIZZINESS; Start 01/01/18 at 23: 00 Enoxaparin Sodium (Lovenox 40mg Syringe) 40 mg Q24H SQ Last administered on at 23:48; Start 01/01/18 at 23:00 Acetaminophen (Tylenol) 650 mg PRN Q6HRS PRN PO FEVER; Start 01/02/18 at 11:45 Ondansetron HCl (Zofran) 4 mg PRN Q6HRS PRN IV NAUSEA/VOMITING; Start 01/02/18 at 11:45 Morphine Sulfate (Morphine Sulfate) 2 mg PRN Q2HR PRN IV MODERATE TO SEVERE PAIN; Start 01/02/18 at 11:45 Tramadol HCl (Ultram) 50 mg PRN Q6HRS PRN PO MILD TO MODERATE PAIN Last administered on 01/02/18at 21:49; Start 01/02/18 at 11:45 Docusate Sodium (Colace) 100 mg PRN DAILY PRN PO HARD STOOLS; Start 01/02/18 at 11:45 Labetalol HCl (Normodyne Iv Push) 20 mg PRN Q2HR PRN IVP HYPERTENSION, SEE COMMENTS; Start 01/02/18 at 15:15 Dexamethasone Sodium Phosphate (Decadron) 20 mg STK-MED ONCE .ROUTE ; Start at 16:29; Stop 01/02/18 at 16:30; Status DC Ondansetron HCl (Zofran) 4 mg STK-MED ONCE .ROUTE ; Start 01/02/18 at 16:29; Stop 01/02/18 at 16:30; Status DC Propofol 20 ml @ As Directed STK-MED ONCE IV ; Start 01/02/18 at 16:29; Stop at 16:30; Status DC Fentanyl Citrate (Fentanyl 2ml Vial) 100 mcg STK-MED ONCE .ROUTE ; Start at 17:48; Stop 01/02/18 at 17:49; Status DC Sevoflurane (Ultane) 30 ml STK-MED ONCE IH ; Start 01/02/18 at 18:18; Stop 01/02 at 18:19; Status DC Linezolid (Zyvox) 600 mg BID PO Last administered on 01/06/18at 10:36; Start at 21:00 Senna/Docusate Sodium (Senna Plus) 1 tab BID PO Last administered on 01/06/18at 10:35; Start 01/03/18 at 21:00 Docusate Sodium (Colace) 100 mg BID PO Last administered on 01/05/18at 09:09; Start 01/03/18 at 21:00 Magnesium Hydroxide (Milk Of Magnesia) 2,400 mg PRN Q12HR PRN PO CONSTIPATION; Start 01/03/18 at 11:45 Polyethylene Glycol (miraLAX PACKET) 17 gm DAILY PO Last administered on at 10:34; Start 01/04/18 at 10:00 Lisinopril (Prinivil) 20 mg DAILY PO Last administered on 01/06/18at 10:35; Start 01/05/18 at 11:00 Active Scripts Active Meclizine Hcl 25 Mg Tablet 25 Mg PO PRN TID PRN dizziness Levaquin (Levofloxacin) 500 Mg Tablet 500 Mg PO DAILY Reported No Known Medications Prior To Admisstion (Info) Each 1 Each Vitals/I & O Vital Sign - Last 24 Hours 01/05/18 01/05/18 01/05/18 01/05/18 14:39 15:18 19:00 19:35 Temp 97.6 97.9 97.6 97.9 Pulse 66 66 66 Resp 16 18 B/P (MAP) 148/74 143/75 (97) 147/78 (101) Pulse Ox 96 92 O2 Delivery Room Air Room Air Room Air 01/05/18 01/06/18 01/06/18 01/06/18 23:00 03:00 07:00 08:00 Temp 97.7 97.8 98.2 97.7 97.8 98.2 Pulse 60 60 65 Resp 18 18 16 B/P (MAP) 130/73 (92) 127/75 (92) 126/72 (90) Pulse Ox 96 92 92 O2 Delivery Room Air Room Air Room Air Room Air 01/06/18 01/06/18 10:35 11:00 Temp 98.3 98.3 Pulse 65 68 Resp 16 B/P (MAP) 126/72 154/97 (116) Pulse Ox 99 O2 Delivery Room Air Intake and Output 01/05/18 01/05/18 01/06/18 15:00 23:00 07:00 Intake Total 500 ml 750 ml Output Total 775 ml Balance 500 ml -25 ml BERNARDO GRUBBS MD Jan 06, 2018 14:08
[2018-01-06 15:00] VITALS: BP 122/78
[2018-01-06 19:00] VITALS: BP 116/77
[2018-01-06] MEDS: ENOXAPARIN 40 MG/0.4 ML SYRINGE. SQ SCH (21:42)
[2018-01-06 22:50] VITALS: BP 111/70
[2018-01-07] MEDS: PIPERACILLIN/TAZOBACTAM 3.375 GM in IV NORMAL SALINE 50ML 50 ML IV SCH ×2 (00:16→06:04)
[2018-01-07 03:00] VITALS: BP 122/71
[2018-01-07 07:00] VITALS: BP 124/73
[2018-01-07] MEDS: SENNOSIDES/DOCUSATE 8.6/50MG TABLET. PO SCH (08:29)
[2018-01-07] MEDS: LACTOBACILLUS RHAMNOSUS GG 1 CAPSULE. PO SCH (08:29)
[2018-01-07] MEDS: LINEZOLID 600 MG TABLET PO SCH (08:29)
[2018-01-07] MEDS: LISINOPRIL 20 MG TABLET PO SCH (08:29)
[2018-01-07] MEDS: DOCUSATE SODIUM 100 MG CAPSULE. PO SCH (08:29)
[2018-01-07] MEDS: POLYETHYLENE GLYCOL 3350 17 GM PACKET. PO SCH (08:30)
--- NOTE | 2018-01-07 10:07 | PDOC ---
Infectious Disease Note Subjective Subjective Pt feels well today no f/c/n/v/d redness over foot is improving also. Has neuropathy ROS ROS o/w neg Vital Sign Vital Signs Vital Signs Date Time Temp Pulse Resp B/P (MAP) Pulse Ox O2 Delivery O2 Flow Rate FiO2 01/07/18 08:29 63 124/73 01/07/18 07:00 97.6 18 96 Room Air 97.6 Physical Exam PHYSICAL EXAM GENERAL: Alert, oriented x 3 male, in chair in no acute distress, comfortable, cooperative. HEENT: Normocephalic, atraumatic, anicteric. No thrush. NECK: Supple. LUNGS: Clear. HEART: S1, S2. ABDOMEN: Soft. Bowel sounds present. EXTREMITIES: Left foot dressing in place,dry intact - clean with mild edema DERMATOLOGIC: No generalized rash except for left foot changes as above. NEUROLOGIC: Grossly nonfocal. PSYCHIATRIC: Appropriate mood and affect. IV: RUE - PICC clean Labs Micro Serratia marcescens 1+ ANTIMICROBIAL SUSCEPTIBILITY Final Comment S = Susceptible; I = Intermediate; R = Resistant P = Positive; N = Negative MICS are expressed in micrograms per mL Antibiotic RSLT#1 RSLT#2 RSLT#3 RSLT#4 Amoxicillin/Clavulanic Acid R>=32 Cefazolin R>=64 Cefepime S<=0.12 Ceftriaxone S<=0.25 Cefuroxime R =32 Ciprofloxacin S<=0.25 Ertapenem S<=0.12 Gentamicin S<=1 Levofloxacin S<=0.12 Meropenem S<=0.25 Tetracycline S =4 Tobramycin S<=1 Trimethoprim/Sulfa S<=20 Microbiology 01/01/18 Blood Culture - Final, Complete NO GROWTH AFTER 5 DAYS 01/02/18 Anaerobic/Aerobic Culture, Resulted Pending 01/02/18 Anaerobic Culture Result 1 (EDDA), Resulted Pending 01/02/18 Aerobic Culture - Final, Resulted 01/02/18 Aerobic Culture Result 1 (EDDA) - Final, Resulted 01/02/18 Antimicrobic Susceptibility - Final, Resulted 01/02/18 Gram Stain - Final, Resulted 01/02/18 Gram Stain Result 1 (EDDA) - Final, Resulted 01/02/18 Gram Stain Result 2 (EDDA) - Final, Resulted Objective Assessment 1. Left foot cellulitis with left plantar wound with purulence at outside supervisor liquid yeast's office with history of left fourth toe osteomyelitis, status post surgery with erosion of the distal tuft of the third distal phalanx with possible osteomyelitis. S/P I AND D WITH no purulence or evidence of ongoing OM per Ortho Serratia - + Joint fluid Lt foot cellulitis improving 2. Dislocation of the third metatarsophalangeal joint. 3. Peripheral neuropathy. 4. Diabetes. 5. History of cancer. 6. H/O L TKA stable Plan Plan of Care No H/o of previous staph or MRSA and no abx prior to admit Discont zyvox and zosyn Dose Invanz for discharge and cont zyvox for now until Podiatry cults are known Continue local wound care per ortho environmental services manager consulted Q Sunday CBC/CMP/sed rate fax [phone] F/u ID office 2 weeks [phone] RAMÍREZ FLORES MD Jan 07, 2018 10:07
[2018-01-07] MEDS ORDERED: ERTAPENEM 1GM IVPB (GENERIC) 50 ML IV ONE (10:30)
--- NOTE | 2018-01-07 10:39 | PDOC ---
PROGRESS NOTES Chief Complaint Chief Complaint Osteomyelitis left foot s/p i and d 01/02 with associated left foot cellulitis no DM h/o left foot bone infection post i and d HTN constipatioN SEVERE PROTEIN, CALORIC MALNUTRITION plan: id consult, on IV INVANZ get ortho consulted, got i and d 01/02 vascular consult as per ID, no intervention pain control wound care add stool softener HOME HEALTH talked to ID, got PICC and iv abx for 2 weeks at least try to get records or cx result from tool machine shop supervisor pt saw before admission, RN fu resume lisinopril sw for home Health, possible nursing home iv abx , on Sunday AWAIT INSURANCE APPROVAL Serratia marcescens 1+ ANTIMICROBIAL SUSCEPTIBILITY Final Comment S = Susceptible; I = Intermediate; R = Resistant P = Positive; N = Negative MICS are expressed in micrograms per mL Antibiotic RSLT#1 RSLT#2 RSLT#3 RSLT#4 Amoxicillin/Clavulanic Acid R>=32 Cefazolin R>=64 Cefepime S<=0.12 Ceftriaxone S<=0.25 Cefuroxime R =32 Ciprofloxacin S<=0.25 Ertapenem S<=0.12 Gentamicin S<=1 Levofloxacin S<=0.12 Meropenem S<=0.25 Tetracycline S =4 Tobramycin S<=1 Trimethoprim/Sulfa S<=20 History of Present Illness History of Present Illness left foot open wound 1 week got i and d 01/02 ROS: no fever, chills, sob or chest pain takes lisinopril 20mg daily at home Vitals Vitals Vital Signs Date Time Temp Pulse Resp B/P (MAP) Pulse Ox O2 Delivery O2 Flow Rate FiO2 01/07/18 08:29 63 124/73 01/07/18 07:00 97.6 18 96 Room Air 97.6 Physical Exam Physical Exam GENERAL: Alert, oriented x 3 male, in chair in no acute distress, comfortable, cooperative. HEENT: Normocephalic, atraumatic, anicteric. No thrush. NECK: Supple. LUNGS: Clear. HEART: S1, S2. ABDOMEN: Soft. Bowel sounds present. EXTREMITIES: Left foot dressing in place,dry intact - clean with mild edema DERMATOLOGIC: No generalized rash except for left foot changes as above. NEUROLOGIC: Grossly nonfocal. PSYCHIATRIC: Appropriate mood and affect. IV: RUE - PICC clean General: Alert, No acute distress Heart: Regular rate, Normal S1, Normal S2 Lungs: Clear Abdomen: Normal bowel sounds, Soft Extremities: No cyanosis, Normal pulses Skin: Other (left foot sole 1 open wound, mild tenderness, left foot red mild swelling) Assessment and Plan Assessmemt and Plan Problems Medical Problems: (1) Cellulitis Status: Acute (2) Wound of foot Status: Acute Comment Review of Relevant I have reviewed the following items dat (where applicable) has been applied. Labs Laboratory Tests Test 01/06/18 04:15 White Blood Count 6.9 x10^3/uL (4.0-11.0) Red Blood Count 4.22 x10^6/uL (4.30-5.70) Hemoglobin 13.5 g/dL (13.0-17.5) Hematocrit 38.3 % (39.0-53.0) Mean Corpuscular Volume 91 fL (79-100) Mean Corpuscular Hemoglobin 32 pg (25-35) Mean Corpuscular Hemoglobin Concent 35 g/dL (31-37) Red Cell Distribution Width 13.4 % (11.5-14.5) Platelet Count 306 x10^3/uL (140-400) Neutrophils (%) (Auto) 57 % (31-73) Lymphocytes (%) (Auto) 25 % (24-48) Monocytes (%) (Auto) 9 % (0-9) Eosinophils (%) (Auto) 8 % (0-3) Basophils (%) (Auto) 1 % (0-3) Neutrophils # (Auto) 4.0 x10^3uL (1.8-7.7) Lymphocytes # (Auto) 1.7 x10^3/uL (1.0-4.8) Monocytes # (Auto) 0.7 x10^3/uL (0.0-1.1) Eosinophils # (Auto) 0.5 x10^3/uL (0.0-0.7) Basophils # (Auto) 0.1 x10^3/uL (0.0-0.2) Sodium Level 142 mmol/L (136-145) Potassium Level 3.8 mmol/L (3.5-5.1) Chloride Level 107 mmol/L (98-107) Carbon Dioxide Level 26 mmol/L (21-32) Anion Gap 9 (6-14) Blood Urea Nitrogen 13 mg/dL (8-26) Creatinine 1.1 mg/dL (0.7-1.3) Estimated GFR (Cockcroft-Gault) 65.8 Glucose Level 91 mg/dL (70-99) Calcium Level 8.2 mg/dL (8.5-10.1) Microbiology 01/01/18 Blood Culture - Final, Complete NO GROWTH AFTER 5 DAYS 01/02/18 Anaerobic/Aerobic Culture, Resulted Pending 01/02/18 Anaerobic Culture Result 1 (EDDA), Resulted Pending 01/02/18 Aerobic Culture - Final, Resulted 01/02/18 Aerobic Culture Result 1 (EDDA) - Final, Resulted 01/02/18 Antimicrobic Susceptibility - Final, Resulted 01/02/18 Gram Stain - Final, Resulted 01/02/18 Gram Stain Result 1 (EDDA) - Final, Resulted 01/02/18 Gram Stain Result 2 (EDDA) - Final, Resulted Medications Current Medications Vancomycin HCl (Vanco Per Pharmacy) 1 each PRN DAILY PRN MC SEE COMMENTS Last administered on 01/03/18at 06:18; Start 01/01/18 at 16:30; Stop 01/03/18 at 10:37 ; Status DC Vancomycin HCl 2 gm/Sodium Chloride 500 ml @ 250 mls/hr ONCE ONCE IV Last administered on 01/01/18at 18:17; Start 01/01/18 at 17:00; Stop 01/01/18 at 18:59 ; Status DC Ondansetron HCl (Zofran) 4 mg PRN Q8HRS PRN IV NAUSEA/VOMITING; Start 01/01/18 at 17:15; Stop 01/02/18 at 11:37; Status DC Piperacillin Sod/ Tazobactam Sod (Zosyn Per Pharmacy) 1 each PRN DAILY PRN MC SEE COMMENTS; Start 01/01/18 at 17:30 Piperacillin Sod/ Tazobactam Sod 3.375 gm/Sodium Chloride 50 ml @ 100 mls/hr ONCE ONCE IV Last administered on 01/01/18at 17:36; Start 01/01/18 at 17:30; Stop 01/01/18 at 17:59; Status DC Piperacillin Sod/ Tazobactam Sod 3.375 gm/Sodium Chloride 50 ml @ 100 mls/hr Q6HRS IV Last administered on 01/07/18at 06:04; Start 01/02/18 at 00:00; Stop at 10:06; Status DC Lactobacillus Rhamnosus (Culturelle) 1 cap BID PO Last administered on at 08:29; Start 01/01/18 at 21:00 Vancomycin HCl 1.5 gm/Sodium Chloride 500 ml @ 250 mls/hr Q12H IV Last administered on 01/03/18at 06:15; Start 01/02/18 at 06:00; Stop 01/03/18 at 10:37 ; Status DC Vancomycin HCl (Vancomycin Trough Level) 1 each 1X ONCE MC Last administered on 01/03/18at 05:30; Start 01/03/18 at 05:30; Stop 01/03/18 at 05:31; Status DC Meclizine HCl (Antivert) 25 mg PRN TID PRN PO DIZZINESS; Start 01/01/18 at 23: 00 Enoxaparin Sodium (Lovenox 40mg Syringe) 40 mg Q24H SQ Last administered on at 21:42; Start 01/01/18 at 23:00 Acetaminophen (Tylenol) 650 mg PRN Q6HRS PRN PO FEVER; Start 01/02/18 at 11:45 Ondansetron HCl (Zofran) 4 mg PRN Q6HRS PRN IV NAUSEA/VOMITING; Start 01/02/18 at 11:45 Morphine Sulfate (Morphine Sulfate) 2 mg PRN Q2HR PRN IV MODERATE TO SEVERE PAIN; Start 01/02/18 at 11:45 Tramadol HCl (Ultram) 50 mg PRN Q6HRS PRN PO MILD TO MODERATE PAIN Last administered on 01/02/18at 21:49; Start 01/02/18 at 11:45 Docusate Sodium (Colace) 100 mg PRN DAILY PRN PO HARD STOOLS; Start 01/02/18 at 11:45 Labetalol HCl (Normodyne Iv Push) 20 mg PRN Q2HR PRN IVP HYPERTENSION, SEE COMMENTS; Start 01/02/18 at 15:15 Dexamethasone Sodium Phosphate (Decadron) 20 mg STK-MED ONCE .ROUTE ; Start at 16:29; Stop 01/02/18 at 16:30; Status DC Ondansetron HCl (Zofran) 4 mg STK-MED ONCE .ROUTE ; Start 01/02/18 at 16:29; Stop 01/02/18 at 16:30; Status DC Propofol 20 ml @ As Directed STK-MED ONCE IV ; Start 01/02/18 at 16:29; Stop at 16:30; Status DC Fentanyl Citrate (Fentanyl 2ml Vial) 100 mcg STK-MED ONCE .ROUTE ; Start at 17:48; Stop 01/02/18 at 17:49; Status DC Sevoflurane (Ultane) 30 ml STK-MED ONCE IH ; Start 01/02/18 at 18:18; Stop 01/02 at 18:19; Status DC Linezolid (Zyvox) 600 mg BID PO Last administered on 01/07/18at 08:29; Start at 21:00 Senna/Docusate Sodium (Senna Plus) 1 tab BID PO Last administered on 01/07/18at 08:29; Start 01/03/18 at 21:00 Docusate Sodium (Colace) 100 mg BID PO Last administered on 01/07/18at 08:29; Start 01/03/18 at 21:00 Magnesium Hydroxide (Milk Of Magnesia) 2,400 mg PRN Q12HR PRN PO CONSTIPATION; Start 01/03/18 at 11:45 Polyethylene Glycol (miraLAX PACKET) 17 gm DAILY PO Last administered on at 10:34; Start 01/04/18 at 10:00 Lisinopril (Prinivil) 20 mg DAILY PO Last administered on 01/07/18at 08:29; Start 01/05/18 at 11:00 Ertapenem 50 ml @ 100 mls/hr 1X ONCE IV ; Start 01/07/18 at 10:30; Stop at 10:59 Active Scripts Active Meclizine Hcl 25 Mg Tablet 25 Mg PO PRN TID PRN dizziness Levaquin (Levofloxacin) 500 Mg Tablet 500 Mg PO DAILY Reported No Known Medications Prior To Admisstion (Info) Each 1 Each Vitals/I & O Vital Sign - Last 24 Hours 01/06/18 01/06/18 01/06/18 01/06/18 11:00 15:00 19:00 20:00 Temp 98.3 98.3 97.5 98.3 98.3 97.5 Pulse 68 74 72 Resp 16 16 18 B/P (MAP) 154/97 (116) 122/78 (93) 116/77 (90) Pulse Ox 99 96 98 O2 Delivery Room Air Room Air Room Air Room Air 01/06/18 01/07/18 01/07/18 01/07/18 22:50 03:00 07:00 08:29 Temp 98.1 97.4 97.6 98.1 97.4 97.6 Pulse 74 71 63 63 Resp 18 18 18 B/P (MAP) 111/70 (84) 122/71 (88) 124/73 (90) 124/73 Pulse Ox 96 97 96 O2 Delivery Room Air Room Air Room Air Intake and Output 01/06/18 01/06/18 01/07/18 15:00 23:00 07:00 Intake Total 350 ml Balance 350 ml JG AMADO MD Jan 07, 2018 10:39
[2018-01-07 11:00] VITALS: BP 117/75
--- NOTE | 2018-01-07 14:15 | PDOC3 ---
Discharge Summary Date of Admission: Jan 01, 2018 Date of Discharge: Jan 07, 2018 Follow-Up: 1-2 days, 3-5 days Admitting Diagnosis comment: DISCHARGE DIAGNOSIS Chief Complaint Osteomyelitis left foot s/p i and d 01/02 with associated left foot cellulitis no DM h/o left foot bone infection post i and d HTN constipatioN SEVERE PROTEIN, CALORIC MALNUTRITION plan: id consult, on IV INVANZ ON D/C get ortho consulted, got i and d 01/02 vascular consult as per ID, no intervention pain control wound care add stool softener HOME HEALTH talked to ID, got PICC and iv abx for 2 weeks at least try to get records or cx result from recovery room rn pt saw before admission, RN fu resume lisinopril sw for home Health, possible sawyer helper iv abx , on Sunday AWAIT INSURANCE APPROVAL Serratia marcescens 1+ ANTIMICROBIAL SUSCEPTIBILITY Final Comment S = Susceptible; I = Intermediate; R = Resistant P = Positive; N = Negative MICS are expressed in micrograms per mL Antibiotic RSLT#1 RSLT#2 RSLT#3 RSLT#4 Amoxicillin/Clavulanic Acid R>=32 Cefazolin R>=64 Cefepime S<=0.12 Ceftriaxone S<=0.25 Cefuroxime R =32 Ciprofloxacin S<=0.25 Ertapenem S<=0.12 Gentamicin S<=1 Levofloxacin S<=0.12 Meropenem S<=0.25 Tetracycline S =4 Tobramycin S<=1 Trimethoprim/Sulfa S<=20 History of Present Illness History of Present Illness left foot open wound 1 week got i and d 01/02 ROS: no fever, chills, sob or chest pain takes lisinopril 20mg daily at home Vitals Vitals Vital Signs Date Time Temp Pulse Resp B/P (MAP) Pulse Ox O2 Delivery O2 Flow Rate FiO2 01/07/18 08:29 63 124/73 01/07/18 07:00 97.6 18 96 Room Air 97.6 Physical Exam Physical Exam GENERAL: Alert, oriented x 3 male, in chair in no acute distress, comfortable, cooperative. HEENT: Normocephalic, atraumatic, anicteric. No thrush. NECK: Supple. LUNGS: Clear. HEART: S1, S2. ABDOMEN: Soft. Bowel sounds present. EXTREMITIES: Left foot dressing in place,dry intact - clean with mild edema DERMATOLOGIC: No generalized rash except for left foot changes as above. NEUROLOGIC: Grossly nonfocal. PSYCHIATRIC: Appropriate mood and affect. IV: RUE - PICC clean General: Alert, No acute distress Heart: Regular rate, Normal S1, Normal S2 Lungs: Clear Abdomen: Normal bowel sounds, Soft Extremities: No cyanosis, Normal pulses FINAL DIAGNOSIS Problems Medical Problems: (1) Cellulitis Status: Acute (2) Wound of foot Status: Acute Brief Hospital Course Mr. Boyd is a 72 old [sex] who presented with [OSTEOMYELITIS OF FOOT ] CONDITION AT DISCHARGE: Improved Discharge Medications Current Medications Vancomycin HCl (Vanco Per Pharmacy) 1 each PRN DAILY PRN MC SEE COMMENTS Last administered on 01/03/18at 06:18; Start 01/01/18 at 16:30; Stop 01/03/18 at 10:37 ; Status DC Vancomycin HCl 2 gm/Sodium Chloride 500 ml @ 250 mls/hr ONCE ONCE IV Last administered on 01/01/18at 18:17; Start 01/01/18 at 17:00; Stop 01/01/18 at 18:59 ; Status DC Ondansetron HCl (Zofran) 4 mg PRN Q8HRS PRN IV NAUSEA/VOMITING; Start 01/01/18 at 17:15; Stop 01/02/18 at 11:37; Status DC Piperacillin Sod/ Tazobactam Sod (Zosyn Per Pharmacy) 1 each PRN DAILY PRN MC SEE COMMENTS; Start 01/01/18 at 17:30; Status Cancel Piperacillin Sod/ Tazobactam Sod 3.375 gm/Sodium Chloride 50 ml @ 100 mls/hr ONCE ONCE IV Last administered on 01/01/18at 17:36; Start 01/01/18 at 17:30; Stop 01/01/18 at 17:59; Status DC Piperacillin Sod/ Tazobactam Sod 3.375 gm/Sodium Chloride 50 ml @ 100 mls/hr Q6HRS IV Last administered on 01/07/18at 06:04; Start 01/02/18 at 00:00; Stop at 10:06; Status DC Lactobacillus Rhamnosus (Culturelle) 1 cap BID PO Last administered on at 08:29; Start 01/01/18 at 21:00 Vancomycin HCl 1.5 gm/Sodium Chloride 500 ml @ 250 mls/hr Q12H IV Last administered on 01/03/18at 06:15; Start 01/02/18 at 06:00; Stop 01/03/18 at 10:37 ; Status DC Vancomycin HCl (Vancomycin Trough Level) 1 each 1X ONCE MC Last administered on 01/03/18at 05:30; Start 01/03/18 at 05:30; Stop 01/03/18 at 05:31; Status DC Meclizine HCl (Antivert) 25 mg PRN TID PRN PO DIZZINESS; Start 01/01/18 at 23: 00 Enoxaparin Sodium (Lovenox 40mg Syringe) 40 mg Q24H SQ Last administered on at 21:42; Start 01/01/18 at 23:00 Acetaminophen (Tylenol) 650 mg PRN Q6HRS PRN PO FEVER; Start 01/02/18 at 11:45 Ondansetron HCl (Zofran) 4 mg PRN Q6HRS PRN IV NAUSEA/VOMITING; Start 01/02/18 at 11:45 Morphine Sulfate (Morphine Sulfate) 2 mg PRN Q2HR PRN IV MODERATE TO SEVERE PAIN; Start 01/02/18 at 11:45 Tramadol HCl (Ultram) 50 mg PRN Q6HRS PRN PO MILD TO MODERATE PAIN Last administered on 01/02/18at 21:49; Start 01/02/18 at 11:45 Docusate Sodium (Colace) 100 mg PRN DAILY PRN PO HARD STOOLS; Start 01/02/18 at 11:45 Labetalol HCl (Normodyne Iv Push) 20 mg PRN Q2HR PRN IVP HYPERTENSION, SEE COMMENTS; Start 01/02/18 at 15:15 Dexamethasone Sodium Phosphate (Decadron) 20 mg STK-MED ONCE .ROUTE ; Start at 16:29; Stop 01/02/18 at 16:30; Status DC Ondansetron HCl (Zofran) 4 mg STK-MED ONCE .ROUTE ; Start 01/02/18 at 16:29; Stop 01/02/18 at 16:30; Status DC Propofol 20 ml @ As Directed STK-MED ONCE IV ; Start 01/02/18 at 16:29; Stop at 16:30; Status DC Fentanyl Citrate (Fentanyl 2ml Vial) 100 mcg STK-MED ONCE .ROUTE ; Start at 17:48; Stop 01/02/18 at 17:49; Status DC Sevoflurane (Ultane) 30 ml STK-MED ONCE IH ; Start 01/02/18 at 18:18; Stop 01/02 at 18:19; Status DC Linezolid (Zyvox) 600 mg BID PO Last administered on 01/07/18at 08:29; Start at 21:00 Senna/Docusate Sodium (Senna Plus) 1 tab BID PO Last administered on 01/07/18at 08:29; Start 01/03/18 at 21:00 Docusate Sodium (Colace) 100 mg BID PO Last administered on 01/07/18at 08:29; Start 01/03/18 at 21:00 Magnesium Hydroxide (Milk Of Magnesia) 2,400 mg PRN Q12HR PRN PO CONSTIPATION; Start 01/03/18 at 11:45 Polyethylene Glycol (miraLAX PACKET) 17 gm DAILY PO Last administered on at 10:34; Start 01/04/18 at 10:00 Lisinopril (Prinivil) 20 mg DAILY PO Last administered on 01/07/18at 08:29; Start 01/05/18 at 11:00 Ertapenem 50 ml @ 100 mls/hr 1X ONCE IV Last administered on 01/07/18at 10:55 ; Start 01/07/18 at 10:30; Stop 01/07/18 at 10:59; Status DC Active Scripts Active Meclizine Hcl 25 Mg Tablet 25 Mg PO PRN TID PRN dizziness Levaquin (Levofloxacin) 500 Mg Tablet 500 Mg PO DAILY Reported No Known Medications Prior To Admisstion (Info) Each 1 Each Vital Signs Vital Signs Date Time Temp Pulse Resp B/P (MAP) Pulse Ox O2 Delivery O2 Flow Rate FiO2 01/07/18 11:00 97.6 69 16 117/75 (89) 97 Room Air 97.6 01/07/18 08:00 10.0 Labs Laboratory Tests Test 01/06/18 04:15 White Blood Count 6.9 x10^3/uL (4.0-11.0) Red Blood Count 4.22 x10^6/uL (4.30-5.70) Hemoglobin 13.5 g/dL (13.0-17.5) Hematocrit 38.3 % (39.0-53.0) Mean Corpuscular Volume 91 fL (79-100) Mean Corpuscular Hemoglobin 32 pg (25-35) Mean Corpuscular Hemoglobin Concent 35 g/dL (31-37) Red Cell Distribution Width 13.4 % (11.5-14.5) Platelet Count 306 x10^3/uL (140-400) Neutrophils (%) (Auto) 57 % (31-73) Lymphocytes (%) (Auto) 25 % (24-48) Monocytes (%) (Auto) 9 % (0-9) Eosinophils (%) (Auto) 8 % (0-3) Basophils (%) (Auto) 1 % (0-3) Neutrophils # (Auto) 4.0 x10^3uL (1.8-7.7) Lymphocytes # (Auto) 1.7 x10^3/uL (1.0-4.8) Monocytes # (Auto) 0.7 x10^3/uL (0.0-1.1) Eosinophils # (Auto) 0.5 x10^3/uL (0.0-0.7) Basophils # (Auto) 0.1 x10^3/uL (0.0-0.2) Sodium Level 142 mmol/L (136-145) Potassium Level 3.8 mmol/L (3.5-5.1) Chloride Level 107 mmol/L (98-107) Carbon Dioxide Level 26 mmol/L (21-32) Anion Gap 9 (6-14) Blood Urea Nitrogen 13 mg/dL (8-26) Creatinine 1.1 mg/dL (0.7-1.3) Estimated GFR (Cockcroft-Gault) 65.8 Glucose Level 91 mg/dL (70-99) Calcium Level 8.2 mg/dL (8.5-10.1) Allergies Allergies Coded Allergies Type Severity Reaction Last Updated Verified No Known Drug Allergies 01/26/15 No Disposition/Orders: D/C to Home w/ HH Patient Instructions D/C PLANNING 32 MIN JG AMADO MD Jan 07, 2018 14:15
--- NOTE | 2018-01-07 14:17 | DISCH ---
DISCHARGE WITH HOME HEALTH DISCHARGE INFORMATION: Final Diagnosis: Problems Medical Problems: (1) Cellulitis Status: Acute (2) Wound of foot Status: Acute Condition on Discharge: Stable CODE STATUS: Code Status: Full HOME HEALTH: Face to Face: I certify this patient is under my care and that I, or a nurse practitioner or physician's assistant surveyor working with me, had a face to face encounter that meets the physician face to face encounter requirements with this patient on [01/07/18 ]. Long-Term For: Admin/Educate Injections, Assess & Educate Safety, Assess/ Skilled Observatio, Wound Care Physical Therapy For: Evalulation/Treatment Occupational Therapy For: Evaluation/Treatment Speech Language Pathology For: Evaluation/Treatment Home Health Aide For: Self-care FINISHING MACHINE TENDER For: Community Resources Pt Meets Homebound Status: Poor coordination w/ amb. POST DISCHARGE ORDERS: DIET AFTER DISCHARGE: ADA CHECKS AFTER DISCHARGE: Checks after discharge: Check blood press - daily CERTIFICATION STATEMENT: Certification Statement: Certification Statement: Based on the above finding, I certify that this patient is confined to the home and needs intermittent nursing home care, physical therapy and/or speech therapy, or continues to need occupational therapy.~ This patient is under my care, and I have initiated the establishment of the plan of care.~ This patient will be followed by myself or a community physician who will periodically review the plan of care. Home Meds Active Scripts Meclizine Hcl (MECLIZINE HCL) 25 Mg Tablet, 25 MG PO PRN TID PRN for dizziness, #21 dizziness Prov:JOSE ALFREDO RAMIREZ DO 12/03/17 Levofloxacin (LEVAQUIN) 500 Mg Tablet, 500 MG PO DAILY, #5 TAB Prov:JOSE ALFREDO RAMIREZ DO 12/03/17 Reported Medications Info (NO KNOWN MEDICATIONS PRIOR TO ADMISSTION) Each, 1 EACH , EACH 02/12/15 JG AMADO MD Jan 07, 2018 14:17
[2018-01-07] MEDS ORDERED: LINE600T PO (14:23)
[2018-01-07] MEDS ORDERED: LISI-130 PO (14:23)
[2018-01-07] MEDS ORDERED: ERTA1VIA IJ (14:23)
[2018-01-07] MEDS ORDERED: LACT1CAP19 PO (14:23)
== END 2018-01-07 15:40 | disposition home health service (06) | DRG 987 ==
LOC: ER 15:44 → 4 NORTH 16:38
PROVIDERS: ADMIT Family Medicine; ATTEND Family Medicine
PROC: 02HV33Z Insertion of Infusion Device into Superior Vena Cava, Percutaneous Approach (ICD-10-PCS; 2018-01-02)
PROC: 0SBN0ZZ Excision of Left Metatarsal-Phalangeal Joint, Open Approach (ICD-10-PCS; principal; 2018-01-02 17:30)
DX: E11.69 Type 2 diabetes mellitus with other specified complication (principal); E43 Unspecified severe protein-calorie malnutrition; M86.8X7 Other osteomyelitis, ankle and foot; L03.116 Cellulitis of left lower limb; L02.612 Cutaneous abscess of left foot; E11.41 Type 2 diabetes mellitus with diabetic mononeuropathy; E11.42 Type 2 diabetes mellitus with diabetic polyneuropathy; S93.129A Dislocation of metatarsophalangeal joint of unspecified toe(s), initial encounter; X58.XXXA Exposure to other specified factors, initial encounter; E78.5 Hyperlipidemia, unspecified; I10 Essential (primary) hypertension; K59.00 Constipation, unspecified; Z96.652 Presence of left artificial knee joint; M19.90 Unspecified osteoarthritis, unspecified site; Z79.899 Other long term (current) drug therapy; Z82.49 Family history of ischemic heart disease and other diseases of the circulatory system; Z83.3 Family history of diabetes mellitus; Z85.72 Personal history of non-Hodgkin lymphomas; Z79.4 Long term (current) use of insulin; Y93.89 Activity, other specified; Y92.89 Other specified places as the place of occurrence of the external cause; Y99.8 Other external cause status
CPT/HCPCS: 36415; 36569; 71045; 73630; 80048; 80053; 80202; 83036; 83605; 85025; 85651; 87040; 87071; 87075; 87186; 93926; 96365; 96367; J1100; J1335; J1650; J2405; J2543; J2704; J3010; J3370; J7030; J7040; 99285-25; A4461

== ENCOUNTER → 2018-07-18 | Outpatient (CLI) | payer MEDICARE ==
[~2018-07-18] MED LIST changes: +ERTA1VIA IJ; +HYDR-3164 PO; -HYDR-971 PO; +LACT1CAP19 PO; +LINE600T PO; +LISI-130 PO
--- NOTE | 2018-07-18 12:16 | RAD ---
FDG tumor localization scan, PET/CT, 07/18/2018: History: Follow-up B-cell lymphoma Following IV injection of 14.5 mCi of 18 F-FDG, imaging was performed from the skull base to the proximal thighs. The noncontrast CT component was performed for attenuation correction and anatomic localization purposes rather than for primary diagnosis. The patient's blood glucose level at the time of injection was 119 injury/DL. Comparison is made to a study from 04/25/2018. There are new small hypermetabolic foci in both axillary regions corresponding to multiple lymph nodes. These include a 16 x 10 mm right axillary lymph node demonstrating a maximum SUV of 7.0. Small hypermetabolic foci in the neck have progressed and are now present on both sides. There are new hypermetabolic foci in the mediastinum corresponding to right peritracheal and subcarinal lymph nodes. The largest of these nodes lies in the right paratracheal region measures 14 mm with a maximum SUV of 6.5. Hypermetabolic periaortic, pericaval time, portacaval, bilateral iliac and inguinal adenopathy evident on the previous study has progressed slightly. Some of these nodes have increased slightly in size, by only a couple of millimeters. Other nodes such as the 3.3 cm left common iliac and 2.5 cm left obturator process safety engineer lymph nodes have not changed significantly in size and demonstrate a similar level of hypermetabolic activity compared to the previous study. The maximum SUV in the left obturator internus node is 11.3 compared to value of 10.3 on the previous study. Small hypermetabolic right inguinal nodes have increased slightly in size and the degree of FDG uptake. FDG uptake in the spleen remains intense. Incidental findings include the presence of gallstones. Multiple hepatic cysts are present. Coronary artery calcifications are noted. IMPRESSION: Progression of the patient's lymphoma since 04/25/2018 with new hypermetabolic nodes and slight interval increase in size of some of the old adenopathy as described above.
== END | disposition home or self-care (01) ==
LOC: PETSC 08:25
PROVIDERS: ATTEND Internal Medicine Hematology & Oncology
DX: C82.08 Follicular lymphoma grade I, lymph nodes of multiple sites (principal); K80.20 Calculus of gallbladder without cholecystitis without obstruction; K76.89 Other specified diseases of liver; I25.10 Atherosclerotic heart disease of native coronary artery without angina pectoris
CPT/HCPCS: 78815; A9552

== ENCOUNTER → 2019-04-18 | Outpatient (CLI) | payer MEDICARE ==
[~2019-04-18] MED LIST changes: -LINE600T PO; +LINE600T12 PO; +MECL-75 PO; -MECL25TA3 PO
== END | disposition home or self-care (01) ==
LOC: SPEC 14:21
PROVIDERS: ATTEND Podiatrist
DX: L02.612 Cutaneous abscess of left foot (principal)
CPT/HCPCS: 87071; 87075

== ENCOUNTER → 2019-08-01 | Outpatient (CLI) | payer MEDICARE ==
--- NOTE | 2019-08-01 11:40 | RAD ---
EXAMINATION: PET W CT SKULL TO MIDTHIGH HISTORY: B cell Lymphoma restaging COMPARISON/CORRELATION: 07/18/2018 PET/CT exam FINDINGS: Net dose 14.4 mCi F-18 FDG was administered intravenously for purposes of PET/CT exam. Blood glucose level at the time of radiotracer administration was 102 mg/dL. Imaging was performed from the skull base to the proximal thighs. Hepatic reference uptake is SUV max of 2.6 . Right jugular chain and posterior triangle lymph nodes are increased in size and number since the prior exam. Increased intensity of uptake also seen. Largest of these lymph nodes measuring 1.3 cm short axis diameter on axial image 16 is present. SUV max of 27.6 is seen. There are no enlarged left-sided lymph nodes. No suspicious uptake involving left-sided lymph nodes in the interval. Bilateral axillary lymph nodes are present. Lymph nodes measure less than 1 cm diameter in the short axis. These are similar to the prior exam and may be some are slightly decreased. SUV max of 3.3 is evident. Uptake of radiotracer slightly above mediastinal uptake but below liver uptake. Right lower paratracheal and left hilar lymph nodes are present with mild uptake. SUV maximum of 2.3 is noted slightly greater than mediastinal blood pool. The lymph nodes are not enlarged. Portacaval lymph node is present with SUV max of 5.3. Celiac axis lymph node of 5.9 SUV max is present. Retroperitoneal lymph nodes at the abdominal aorta anteriorly noted. This is at the renal vein level with SUV max of 6.7. Nonenlarged retroperitoneal aortocaval lymph nodes are also present and some have intense uptake with SUV max of 5.9. Most of these lymph nodes are not enlarged. Lymph nodes are present at the level of the common iliac arteries. Largest of these are on the left with a short axis diameter of 1.7 similar. This is significantly decreased compared to prior exam where the diameter was 2.5 cm in the short axis. Lymph nodes along the pelvic sidewalls are present with SUV maximum of 2 5.6 on the left. This pelvic sidewall lymph node has a diameter of up to 1.7 cm on axial image [address] series 3. There is decreased compared to the previous exam where it measured 2.4 cm. Bilateral groin region lymph nodes are present but not enlarged. There is intense uptake with SUV maximum of 6.4 noted at these lymph nodes. These are slightly decreased in size compared to prior exam. Decreased intensity of uptake compared previous exam is notable involving the abdominal and pelvic lymph nodes. Intensity is greater than the liver however. Incidental note is made of chronic paranasal sinusitis. Lung dykes are clear. Coronary arterial calcifications noted diffusely. Hepatic cysts are again identified with the largest in the right hepatic dome. At least 2 gallbladder calculi are present and are large in size measuring up to 2.4 cm diameter. No radiopaque collecting system calculi. Diverticulosis is present. Moderate quantity of stool in the colon is present. Urinary bladder is unremarkable. No suspicious bony process in the interval. Degenerative changes of the cervical spine with sclerosis and L5-S1. IMPRESSION: Increased lymphadenopathy involving the right side of the neck. Deauville score of 5. Thoracic, abdominal and pelvic uptake is less intense and the abnormal lymph nodes are decreased in size within the abdomen and pelvis in the interval. Cholelithiasis. PQRS Compliance Statement: One or more of the following individualized dose reduction techniques were utilized for this examination: 1. Automated exposure control 2. Adjustment of the mA and/or kV according to patient size 3. Use of iterative reconstruction technique Electronically signed by: Nicholas Rodgers MD (08/01/2019 11:37 AM) [id number]
== END | disposition home or self-care (01) ==
LOC: PETSC 07:37
PROVIDERS: ATTEND Internal Medicine Hematology & Oncology
DX: C82.08 Follicular lymphoma grade I, lymph nodes of multiple sites (principal); K76.89 Other specified diseases of liver; K80.20 Calculus of gallbladder without cholecystitis without obstruction; I25.10 Atherosclerotic heart disease of native coronary artery without angina pectoris; J32.8 Other chronic sinusitis; K57.30 Diverticulosis of large intestine without perforation or abscess without bleeding; R59.1 Generalized enlarged lymph nodes; M47.812 Spondylosis without myelopathy or radiculopathy, cervical region
CPT/HCPCS: 78815; A9552

== ENCOUNTER → 2019-11-03 | Outpatient (CLI) | payer MEDICARE ==
[~2019-11-03] MED LIST changes: -ERTA1VIA IJ; +ERTA1VIA16 IJ; +MULT-445 PO; -MULT1TAB52 PO
--- NOTE | 2019-11-03 13:50 | RAD ---
EXAM: PET/CT SKULL BASE TO MID THIGH. HISTORY: Lymphoma, restaging. COMPARISON: 08/01/2019. TECHNIQUE: CT was performed from the skull base through the mid thighs for the purposes of attenuation correction. 15.4 mCi F-18 fluorodeoxyglucose (FDG) was administered intravenously. After an uptake period, positron emission tomography was performed from the skull base through the mid thighs. The PET and CT data were fused and interpreted in combination a dedicated workstation. Blood glucose level was 91 mg/dL at the time of FDG administration. FINDINGS: Hypermetabolic right cervical lymph nodes measure up to 19 x 13 mm on image 40. Multiple other smaller involvement nodes are confluent throughout the right neck. Maximum SUV is 9.2. Small bilateral axillary lymph nodes are normal in size and mildly hypermetabolic with maximum SUV 3.3. Left hilar nodes are normal in size and there is a maximum SUV 3.9. Retroperitoneal lymph nodes measure up to 2.9 x 2.0 cm with maximum SUV 11.0. Smaller left periaortic and bilateral common iliac nodes are also involved. Multiple bilateral obturator, external iliac and inguinal nodes are involved. Inguinal nodes are normal in size. A left external iliac node on image 258 measures 2.8 x 2.0 cm. There are similarly sized nodes in the right external iliac and obturator territories. Maximum SUV is up to 7.3. Additional CT findings include hepatic cysts measuring up to 7.3 cm in the dome. Multiple gallstones are noted without pericholecystic inflammation. There are calcifications of the aortic valve and coronary arteries. IMPRESSION: 1. Right cervical, bilateral axillary, left hilar, retroperitoneal and bilateral pelvic and inguinal lymph nodes are not clearly changed. 2. Cholelithiasis.
== END | disposition home or self-care (01) ==
LOC: PETSC 09:36
PROVIDERS: ATTEND Internal Medicine Hematology & Oncology
DX: C82.80 Other types of follicular lymphoma, unspecified site (principal); C82.08 Follicular lymphoma grade I, lymph nodes of multiple sites; K80.20 Calculus of gallbladder without cholecystitis without obstruction; K76.89 Other specified diseases of liver; K80.80 Other cholelithiasis without obstruction; I25.10 Atherosclerotic heart disease of native coronary artery without angina pectoris; I35.8 Other nonrheumatic aortic valve disorders
CPT/HCPCS: 78815; A9552

== ENCOUNTER 2020-01-13 10:42 | Emergency (ER) | payer MEDICARE ==
[~2020-01-13] VITALS: Ht 193 cm; Wt 111.0 kg
[2020-01-13 10:59] VITALS: BP 175/82
--- NOTE | 2020-01-13 11:32 | PHYS DOC ---
Past Medical History Past Medical History: Cancer, Hypertension Additional Past Medical Histor: LOW GRADE B CELL LYMPHOMA Past Surgical History: Knee Replacement, Tonsillectomy Additional Past Surgical Histo: L foot sx, L knee replacement, R elbow sx, R ACL repair Smoking Status: Former Smoker Alcohol Use: None Drug Use: None General Adult EDM: Chief Complaint: LOWER EXTREMITY SWELLING HPI: HPI: Patient is a 74 year old male who presents with increased left foot swelling, drainage from posterior pad of foot with opened wound and foot redness for the last 2 days. Patient states that he has neuropathy in his feet so he did not notice opening of the wound or worsening of the wound until couple days ago. Patient has a history of this same wound in the same spot from back in 2016 that he ended up having osteomyelitis and had to have bone removed on the same left foot. He states that he had gone to wound care and they got it all closed up nicely and he no longer had problems. Patient states last time he had to be on IV antibiotics. He states he called his primary care physician who told him to come into the emergency room and have it evaluated. He also has a history of low-grade B-cell lymphoma that he has had for the last [address] Villanueva for. He states he has never had treatment for it and they have just been watching the area. He also has a history of hypertension,, tonsillectomy, knee replacement, right elbow surgery, right ACL repair. He denies any pain, fever, chills, body aches, abdominal pain, cough, nausea, vomiting, diarrhea, dizziness, headache, vision changes, focal weakness. Review of Systems: Review of Systems: Constitutional: Denies fever or chills. [] Eyes: Denies change in visual acuity. [] HENT: Denies nasal congestion or sore throat. [] Respiratory: Denies cough or shortness of breath. [] Cardiovascular: Denies chest pain. Left foot 2+ edema. [] GI: Denies abdominal pain, nausea, vomiting, bloody stools or diarrhea. [] : Denies dysuria. [] Musculoskeletal: Denies back pain or joint pain. [] Integument: Denies rash. Left posterior foot wound. Left foot redness. [] Neurologic: Denies headache, focal weakness or sensory changes. [] Endocrine: Denies polyuria or polydipsia. [] Lymphatic: Denies swollen glands. [] Psychiatric: Denies depression or anxiety. [] Heart Score: Risk Factors: Risk Factors: DM, Current or recent (<one month) smoker, HTN, HLP, family history of CAD, obesity. Risk Scores: Score 0 - 3: 2.5% MACE over next 6 weeks - Discharge Home Score 4 - 6: 20.3% MACE over next 6 weeks - Admit for Clinical Observation Score 7 - 10: 72.7% MACE over next 6 weeks - Early Invasive Strategies Allergies: Allergies: Allergies Coded Allergies Type Severity Reaction Last Updated Verified No Known Drug Allergies 01/26/15 No Physical Exam: PE: Constitutional: Well developed, well nourished, no acute distress, non-toxic appearance. [] HENT: Normocephalic, atraumatic, bilateral external ears normal, oropharynx moist, no oral exudates, nose normal. [] Eyes: PERRLA, EOMI, conjunctiva normal, no discharge. [] Neck: Normal range of motion, no tenderness, supple, no stridor. [] Cardiovascular:Heart rate regular rhythm, no murmur [] Lungs & Thorax: Bilateral breath sounds clear to auscultation [] Abdomen: Bowel sounds normal, soft, no tenderness, no masses, no pulsatile masses. [] Skin: Warm, dry, left posterior foot erythema, left foot posterior foot wound, no rash. [] Back: No tenderness, no CVA tenderness. [] Extremities: No tenderness, no cyanosis, no clubbing, ROM intact, left posterior foot 2+ edema. [] Neurologic: Alert and oriented X 3, normal motor function, normal sensory function, no focal deficits noted. [] Psychologic: Affect normal, judgement normal, mood normal. [] Current Patient Data: Vital Signs: Vital Signs Date Time Temp Pulse Resp B/P (MAP) Pulse Ox O2 Delivery O2 Flow Rate FiO2 01/13/20 10:59 99.0 77 18 175/82 (113) 98 Room Air 99.0 EKG: EKG: [] Radiology/Procedures: Radiology/Procedures: [] Impression: [facility] [address] [place] [address] IMAGING REPORT Signed PATIENT: JG ARAIZA ACCOUNT: [id number] : 1945 LOCATION: ER AGE: 74 SEX: M EXAM STATUS: REG ER ORD. PHYSICIAN: PIERO BARKSDALE APRN REASON: infection,pain and redness 2nd and 3rd toes. PROCEDURE: FOOT LEFT 3V Left foot 3 views INDICATION: Infection, pain and redness second and third toes COMPARISON: None currently available FINDINGS: AP, lateral and oblique views of the left foot were obtained. There is evidence of a persistent dislocation dorsolaterally of the third MTP joint. There are surgical changes from previous distal fourth metatarsal osteotomy. No acute fracture or bony erosive changes are seen. Incidental note is made of generalized demineralization and calcaneal spurring and Achilles tendon enthesophyte. Mild diffuse soft tissue swelling in the forefoot is suggested, similar to prior. No abnormal soft tissue gas or radiopaque foreign body. IMPRESSION: No radiographic findings suspicious for osteomyelitis. No evidence of a gas-forming deep soft tissue infection identified either. Electronically signed by: Calista Villalobos MD (01/13/2020 12:15 PM) [id number] DICTATED and SIGNED BY: CALISTA VILLALOBOS MD DATE: 01/13/20 1215 Course & Med Decision Making: Course & Med Decision Making Pertinent Labs and Imaging studies reviewed. (See chart for details) Alert and oriented x4. Ambulatory with a steady gait. Speaks in full complete sentences. There is no calf tenderness or any other swelling except to the foot itself around the wound area that I would say is a 2+. There looks to be some yellowish dried crusty drainage from the wound area. It is hard and feels almost callused. There is no bone or tendon seen. No foreign bodies. Pedal pulses present. Cap refill less than 2. Skin pink warm and dry. He is not on any kind of blood thinner. He denies any chest pain or shortness of air. Blood work is unremarkable. C-reactive protein is elevated. No white blood cell count. Lactic acid is normal. X-ray does not show osteomyelitis or any acute findings. Dr Peñaloza has been paged x2 and he has not called back. I have spoken to Dr Zhang who states she is stable enough to be discharged. He will be discharging him on antibiotics. I have spoken to wound care who states that he will be able to get in for follow-up care soon. [] Cole Disclaimer: Cole Disclaimer: This electronic medical record was generated, in whole or in part, using a voice recognition dictation system. Departure Departure Impression: Primary Impression: Wound of foot Disposition: HOME, SELF-CARE Condition: STABLE Referrals: JONATHAN PEÑALOZA MD (PCP) Patient Instructions: Wound Infection, Xnag-di-Ooed Additional Instructions: Call the wound clinic here at [facility] at [phone] today and make your appointment with the physician. Take antibiotics as prescribed and with food. Follow-up with your primary care physician. Scripts Clindamycin Hcl (CLINDAMYCIN HCL) 300 Mg Capsule 300 MG PO QID for 10 Days, #40 CAP Prov: PIERO BARKSDALE APRN 01/13/20 Justicifation of Admission Dx: Justifications for Admission: Justification of Admission Dx: N/A PIERO BARKSDALE APRN Jan 13, 2020 11:32
[2020-01-13 11:43] LABS: BASO % 1 % (0-3); EOS # 0.2 x10^3/uL (0.0-0.7); EOS % 3 % (0-3); HEMATOCRIT 38.9 % (39.0-53.0); HEMOGLOBIN 13.4 g/dL (13.0-17.5); LYMPH # 1.6 x10^3/uL (1.0-4.8); LYMPH % 21 % (24-48); MEAN CORPUSCULAR HEMOGLOBIN 31 pg (25-35); MEAN CORPUSCULAR HGB CONC 35 g/dL (31-37); MEAN CORPUSCULAR VOLUME 91 fL (79-100); MONO # 0.7 x10^3/uL (0.0-1.1); MONO % 9 % (0-9); NEUT # 4.9 x10^3/uL (1.8-7.7); NEUT % 66 % (31-73); PLATELET COUNT 221 x10^3/uL (140-400); RED BLOOD COUNT 4.28 x10^6/uL (4.30-5.70); RED CELL DISTRIBUTION WIDTH 13.2 % (11.5-14.5); WHITE BLOOD COUNT 7.3 x10^3/uL (4.0-11.0)
[2020-01-13 11:53] LABS: CALCIUM 8.6 mg/dL (8.5-10.1); POTASSIUM 4.3 mmol/L (3.5-5.1)
[2020-01-13 11:58] LABS: ALBUMIN 3.2 g/dL (3.4-5.0); ALBUMIN/GLOBULIN RATIO 0.9 (1.0-1.7); TOTAL PROTEIN 6.7 g/dL (6.4-8.2)
--- NOTE | 2020-01-13 12:18 | RAD ---
Left foot 3 views INDICATION: Infection, pain and redness second and third toes COMPARISON: None currently available FINDINGS: AP, lateral and oblique views of the left foot were obtained. There is evidence of a persistent dislocation dorsolaterally of the third MTP joint. There are surgical changes from previous distal fourth metatarsal osteotomy. No acute fracture or bony erosive changes are seen. Incidental note is made of generalized demineralization and calcaneal spurring and Achilles tendon enthesophyte. Mild diffuse soft tissue swelling in the forefoot is suggested, similar to prior. No abnormal soft tissue gas or radiopaque foreign body. IMPRESSION: No radiographic findings suspicious for osteomyelitis. No evidence of a gas-forming deep soft tissue infection identified either. Electronically signed by: Zaire Villalobos MD (01/13/2020 12:15 PM) [id number]
[2020-01-13] MEDS ORDERED: CLIN300C8 PO (13:07)
== END 2020-01-13 13:30 | disposition home or self-care (01) ==
LOC: ER 10:42
DX: S91.302A Unspecified open wound, left foot, initial encounter (principal); R60.0 Localized edema; L53.9 Erythematous condition, unspecified; I10 Essential (primary) hypertension; Z90.89 Acquired absence of other organs; Z98.890 Other specified postprocedural states; Z87.891 Personal history of nicotine dependence; X58.XXXA Exposure to other specified factors, initial encounter; Y93.89 Activity, other specified; Y92.89 Other specified places as the place of occurrence of the external cause; Y99.8 Other external cause status
CPT/HCPCS: 36415; 73630; 80053; 83605; 85025; 86140; 87040; 99284

== ENCOUNTER → 2020-01-15 | Outpatient (CLI) | payer MEDICARE ==
[~2020-01-15] MED LIST changes: +CLIN300C8 PO; +GADOTERATE 7.5 MMOL/15ML VIAL. ONE
[2020-02-24 15:00] VITALS: BP 129/69
--- NOTE | 2020-02-25 13:52 | RAD ---
Examination: MRI of the left foot without and with IV contrast HISTORY: History of nonhealing wound left foot COMPARISON: 10/20/2015 TECHNIQUE: Multiplanar, multisequence MR imaging of the left foot were performed without and with IV contrast. IV contrast used was 22 mL of dotarem FINDINGS: The alignment of the tarsal bones grossly appears unremarkable Amputation changes identified in the distal aspect of the fourth metatarsal. There is inferior plantar dislocation of the third metatarsal in relation to the proximal phalanx of the third toe. Hammertoe deformities identified. There is small ulcer identified plantar to the third metatarsal head with intermediate T1 signal identified about the second and third metatarsal heads mostly about the third metatarsal head with corresponding faint increased T2 signal with enhancement identified in the head of the third metatarsal. Small amount of joint effusion identified in the third MTP joint. Questionable mild plantar subluxation of the head of the second metatarsal relation to proximal phalanx. Mild joint effusion second MTP joint. Mild soft tissue enhancement identified in the soft tissue of the forefoot. IMPRESSION: 1. Plantar dislocation of the third metatarsal head in relation to the proximal phalanx of the third toe again identified. Small joint effusion identified in the second and third MTP joints with small ulcer identified plantar to the third metatarsal head with intermediate T1 signal identified about the second and third metatarsal heads mostly about the third metatarsal head with corresponding faint increased T2 signal with enhancement identified in the head of the third metatarsal, could be secondary to joint infection septic arthritis or inflammation or osteomyelitis. Electronically signed by: Cedric Kate MD (01/15/2020 4:25 PM) [id number]
== END ==
LOC: RAD 10:00
DX: S93.335A Other dislocation of left foot, initial encounter (principal); X58.XXXA Exposure to other specified factors, initial encounter; Y93.89 Activity, other specified; Y92.89 Other specified places as the place of occurrence of the external cause; Y99.8 Other external cause status
CPT/HCPCS: 73720; A9575

== ENCOUNTER → 2020-01-30 | Outpatient (CLI) | payer MEDICARE ==
[2020-01-29 07:59] VITALS: BP 125/59
[~2020-01-30] MED LIST changes: +ERTAPENEM 1GM IVPB(GENERIC) NS 50 ML IV ONE; -GADOTERATE 7.5 MMOL/15ML VIAL. ONE
--- NOTE | 2020-01-30 18:40 | RAD ---
EXAM: PET W CT SKULL TO MIDTHIGH EXAM DATE: 01/30/2020 INDICATION: Lymphoma restaging RADIOPHARMACEUTICAL: 15.8 mCi of F-18 Fluorodeoxyglucose (FDG) I.V. via the right antecubital fossa. TECHNIQUE: Patient weight: 245 pounds. Following at least four-hour fasting, the patient's blood glucose was 102 mg/dl. Approximately 1 hour after administration of FDG, overlapping emission scanning was performed from the orbital meatal line through the pelvis. A low-dose CT was performed for attenuation correction purposes and anatomic localization. Fused images of PET and CT were reviewed. Any standardized uptake values (SUV) reported are maximum values within a volume region of interest, expressed in gm/ml. COMPARISON: PET CT of 11/03/2019 FINDINGS: PET: In the head and neck, predominantly right-sided cervical adenopathy is associated with increased FDG activity including right level 2 lymph nodes (max SUV 6.4), right level 4 nodes (max SUV 5.6), and level 5 cervical nodes (Max SUV 5.2). Previously, they reported to have a max SUV of 9.2. Smaller left-sided cervical lymph nodes also show mild FDG uptake. In the chest, bilateral axillary level 1 lymph nodes also show FDG uptake on the left to a max SUV of 3.4, and on the right to a max SUV of 4.0. Mediastinal tamy uptake is also evident. Compared with a background uptake of 3.01 in the aortic arch, aortopulmonary window lymph node shows FDG uptake to max SUV of 3.7, and a precarinal node shows uptake to max SUV of 4.0. Mild uptake in the berenice bilaterally are also noted but these are more difficult to distinguish from background activity. In the abdomen, extensive uptake in the lymph nodes and spleen is present. Splenic uptake is to a max SUV of 6.2, compared with a background hepatic uptake of 4.0. Periportal tamy uptake to max SUV of 5.5 (image 100 of series 603), left upper quadrant mesenteric tamy uptake to max SUV of 4.7 (image 111 of series 603). Aortocaval node immediately below the left renal vein shows uptake to max SUV of 12.2 (image 115 of series 603), compared with a previously reported max SUV of 11.0. In the pelvis, bilateral common iliac tamy uptake to max SUV of 5.5 on the left and 5.8 on the right (image 137 series 603), right internal iliac tamy uptake to max SUV of 7.0, bilateral obturator tamy uptake to max SUV of 6.0 on the right and 5.8 on the left (image 158 of series 603). Bilateral superficial and deep inguinal tamy uptake to max SUV of 7.5 on the right and 3.5 on the left. No abnormal uptake in the osseous structures. CT: Stable to marginally decreased size of cervical lymph nodes, stable thoracic lymph nodes (axillary, mediastinal and hilar nodes) with slightly enlarged abdominal and pelvic lymph nodes. Images of the head and neck also show bilateral air-fluid levels in the paranasal sinuses, notably the maxillary sinuses. Chest shows also mild ectasia of the ascending thoracic aorta to 4.4 cm and scattered coronary calcifications. No pleural effusion, suspicious pulmonary nodules or lung masses. Patient has a right PICC line whose tip terminates near the cavoatrial junction.. Executive Producer lymph node in the abdomen lies anterior to the IVC on axial image 312 of series 3 and now shows a short axis diameter of 2.1 cm, compared with 1.4 cm at the comparable level on the prior examination (image 196 of series 3 on that exam). Abdomen also shows multiple hepatic cysts, normal-sized spleen, and large calcified gallstones. A telephone service representative pelvic lymph node is a superficial right inguinal node on axial image 48 of series 3 that now has a short axis diameter of 1.4 cm compared with 1.0 cm previously (image 258 of series 3 on the prior study). Pelvis shows incidental enlarged prostate and 5.1 cm diameter. No aggressive appearing osseous lesions. IMPRESSION: Mixed therapeutic response with decreased size and activity of lymph nodes in the neck, stable disease in the chest, and evidence of progressive disease in the abdomen and pelvis as described. If relevant, the retroperitoneal lymph nodes showing an FDG uptake to max SUV of 12 (compared with 11 previously) would be assiged a Deauville score of 5. Electronically signed by: Zaire Villalobos MD (01/30/2020 6:37 PM) [id number]
== END ==
LOC: PETSC 08:40
PROVIDERS: ATTEND Internal Medicine Hematology & Oncology
DX: C82 Follicular lymphoma (principal); C82.80 Other types of follicular lymphoma, unspecified site; I77.819 Aortic ectasia, unspecified site; I25.10 Atherosclerotic heart disease of native coronary artery without angina pectoris; K80.80 Other cholelithiasis without obstruction; K76.89 Other specified diseases of liver; N40.0 Benign prostatic hyperplasia without lower urinary tract symptoms
CPT/HCPCS: 78815; A9552